=== PATIENT | female | born 1990 | race Caucasian/White ===

== ENCOUNTER 2016-05-24 14:32 | Emergency (ER) | payer SELFPAY ==
[2016-05-24] MEDS ORDERED: ONDANSETRON 4 MG TAB.RAPDIS PO ONE (15:17)
--- NOTE | 2016-05-24 15:17 | ER Document Report ---
ED Medical Screen (RME) - General Stated Complaint: COUGH Notes: 2 days ago congestion, headache, vomiting, bodyaches (-) influenza vaccine I have greeted and performed a rapid initial assessment of this patient. A comprehensive ED assessment and evaluation of the patient, analysis of test results and completion of the medical decision making process will be conducted by additional ED providers. TRAVEL OUTSIDE OF THE [place] IN LAST 30 DAYS: No - Related Data Allergies/Adverse Reactions: No Known Allergies Allergy (Verified 05/24/16 15:16) Past Medical History - Past Medical History Cardiac Medical History: Reports: Hx Hypertension Denies: Hx Coronary Artery Disease Pulmonary Medical History: Reports: Hx Bronchitis, Hx Pneumonia Neurological Medical History: Denies: Hx Migraine Endocrine Medical History: Denies: Hx Diabetes Mellitus Type 2, Hx Hypothyroidism GI Medical History: Denies: Hx Gastritis, Hx Gastroesophageal Reflux Disease, Hx Irritable Bowel Musculoskeltal Medical History: Denies Hx Fibromyalgia, Denies Hx Muscle Spasm, Denies Hx Muscle Weakness, Reports Hx Musculoskeletal Deformity, Reports Hx Musculoskeletal Trauma Psychiatric Medical History: Reports: Hx Anxiety, Hx Depression Infectious Medical History: Denies: Hx HIV, Hx MRSA Past Surgical History: Reports: Hx Cholecystectomy, Hx Tonsillectomy - Immunizations Immunizations up to date: Yes Hx Diphtheria, Pertussis, Tetanus Vaccination: Yes Physical Exam - Vital signs Vitals: Temp Pulse Resp BP Pulse Ox 97.9 F 67 18 147/88 H 98 05/24/16 14:46 05/24/16 14:46 05/24/16 14:46 05/24/16 14:46 05/24/16 14:46 Course - Vital Signs Vital signs: Temp Pulse Resp BP Pulse Ox 97.9 F 67 18 147/88 H 98 05/24/16 14:46 05/24/16 14:46 05/24/16 14:46 05/24/16 14:46 05/24/16 14:46
--- NOTE | 2016-05-24 15:51 | ER Document Report ---
ED General - General Chief Complaint: Flu Symptoms Stated Complaint: COUGH Mode of Arrival: Ambulatory Information source: Patient Notes: Patient is 25 yo female who presents with 2 day history of non-productive cough , sore throat, congestion, headache and body aches. She also endorses vomiting x2 today. She reports exposure to the flu, did not get her flu vaccine. She denies any dizziness, changes in vision, ear pain, chest pain, SOB, wheezing, diarrhea or urinary symptoms. She has tried OTC medication with no relief. TRAVEL OUTSIDE OF THE [place] IN LAST 30 DAYS: No - Related Data Allergies/Adverse Reactions: No Known Allergies Allergy (Verified 05/24/16 15:16) Past Medical History - Social History Smoking Status: Current Every Day Smoker Frequency of alcohol use: Social Drug Abuse: Marijuana Family History: Arthritis, CAD, DM, Hyperlipidemia, Hypertension, Malignancy, Thyroid Disfunction Patient has suicidal ideation: No Patient has homicidal ideation: No - Past Medical History Cardiac Medical History: Reports: Hx Hypertension Denies: Hx Coronary Artery Disease Pulmonary Medical History: Reports: Hx Bronchitis, Hx Pneumonia Neurological Medical History: Denies: Hx Migraine Endocrine Medical History: Denies: Hx Diabetes Mellitus Type 2, Hx Hypothyroidism Renal/ Medical History: Denies: Hx Peritoneal Dialysis GI Medical History: Denies: Hx Gastritis, Hx Gastroesophageal Reflux Disease, Hx Irritable Bowel Musculoskeltal Medical History: Denies Hx Fibromyalgia, Denies Hx Muscle Spasm, Denies Hx Muscle Weakness, Reports Hx Musculoskeletal Deformity, Reports Hx Musculoskeletal Trauma Psychiatric Medical History: Reports: Hx Anxiety, Hx Depression Infectious Medical History: Denies: Hx HIV, Hx MRSA Past Surgical History: Reports: Hx Cholecystectomy, Hx Tonsillectomy - Immunizations Immunizations up to date: Yes Hx Diphtheria, Pertussis, Tetanus Vaccination: Yes Review of Systems - Review of Systems Constitutional: See HPI EENT: See HPI Cardiovascular: No symptoms reported Respiratory: No symptoms reported Gastrointestinal: See HPI Genitourinary: No symptoms reported Female Genitourinary: No symptoms reported Musculoskeletal: No symptoms reported Skin: No symptoms reported Hematologic/Lymphatic: No symptoms reported Neurological/Psychological: No symptoms reported Physical Exam - Vital signs Vitals: Temp Pulse Resp BP Pulse Ox 97.9 F 67 18 147/88 H 98 05/24/16 14:46 05/24/16 14:46 05/24/16 14:46 05/24/16 14:46 05/24/16 14:46 Interpretation: Hypertensive - Notes Notes: PHYSICAL EXAM: CONSTITUTIONAL: Alert and oriented, well-appearing and in no acute distress. Standing in exam room. HENT: Normocephalic, atraumatic. Ear canals without erythema or foreign body, TMs pearly [place] with good bony landmarks. Nares clear without erythema, septal hematoma or deviation, airway patent. Oropharynx clear with tonsillar enlargement without erythema, tonsilar exudate or malocclusion. Trachea midline. Uvula midline. Moist mucous membranes. EYES: Pupils equal round and reactive to light, EOM intact. Sclera anicteric, conjunctiva are normal. No entrapment. NECK: supple without lymphadenopathy. ROM intact. HEART: Regular rate and rhythm without murmurs. LUNGS: CTAB and equal. No wheezes, rales or rhonchi. GI: Normactive bowel sounds. Nontender, non-distended. No organomegaly. no CVAT. EXTREMITIES: Normal range of motion, no pitting edema. No cyanosis. Cap Refill < 3 seconds. SKIN: Warm and dry. Normal turgor. No rashes or lesions noted. Course - Re-evaluation Re-evalutation: 05/24/16 16:45 Patient seen and examined. VSS, well-appearing, non-toxic. Lungs CTAB. Will swab for influenza and rapid strep. 05/24/16 17:56 Reviewed labs - negative for strep or influenza. Discussed results with patient as well as supportive treatments. Discharged home in stable condition, follow- up with PMD. Patient in agreement with assessment and plan. - Vital Signs Vital signs: Temp Pulse Resp BP Pulse Ox 97.7 F 68 16 137/79 H 98 05/24/16 17:13 05/24/16 17:13 05/24/16 17:13 05/24/16 17:13 05/24/16 17:13 Discharge - Discharge Clinical Impression: Viral syndrome Condition: Stable Disposition: HOME, SELF-CARE Additional Instructions: UPPER RESPIRATORY ILLNESS: You have a viral infection of the respiratory passages -- a "cold." This common infection causes nasal congestion, drainage, and often sore throat and cough. It is highly contagious. The disease usually lasts about 10 to 14 days. There is no "cure" for the viral infection -- it must run its course. If there is a complication, such as bacterial infection in the nose, sinuses, middle ear, or bronchial tubes, antibiotics may be required. The antibiotics won't affect the virus. Drink plenty of fluids. A humidifier may help. An expectorant medication or decongestant may make you more comfortable. Use acetaminophen or ibuprofen for fever or aches. See the doctor if fever persists over two days, if there is any significant worsening of your symptoms, or if you simply fail to improve as expected. DECONGESTANT MEDICATION: A decongestant medicine has been prescribed. Often this medicine is combined in the same tablet with an antihistamine or expectorant. This type of medicine is helpful in treating a bad cold or sinus condition, as well as in treatment of the nasal congestion of hay fever. It is not of much benefit for lung infections. Decongestant medicines are related to stimulants. They can cause an increase in blood pressure and heart rate. Persons with heart disease and high blood pressure should not take decongestants without discussing this with the physician. If you develop palpitations, chest pain, headache, or tremors, stop the medicine and consult your physician. COUGH-SUPPRESSANT & EXPECTORANT MEDICATION: You are to use a cough medication as needed for relief of symptoms. This medicine is a combination of an expectorant (to make the mucous thinner and more easily "coughed up") and a cough suppressant (to reduce the frequency of coughing). The cough-suppressant medicine is related to narcotics. You may experience mild nausea and sleepiness. Some patients who are very sensitive to narcotics may have stomach pain from this medicine. Taking the medicine with food reduces these side effects. Do not drive or work with machinery until you know how this medicine affects you. The expectorant should have no side effects. Iodine-containing expectorants (such as organidin) should not be taken by persons with active thyroid disease unless approved by your doctor. Call the doctor if you develop shortness of breath, hives, rash, itching, lightheadedness, or severe nausea and vomiting. USE OF ACETAMINOPHEN (Tylenol): Acetaminophen may be taken for pain relief or fever control. It's much safer than aspirin, offering a wider range of "safe" dosages. It is safe during . Some brand names are Tylenol, Panadol, Datril, Anacin 3, Tempra, and Liquiprin. Acetaminophen can be repeated every four hours. The following are maximum recommended dosages: >89 pounds or adults 650 mg to 900 mg Acetaminophen can be repeated every four hours. Maximum dose not to exceed 4000 mg a day. SMOKING: If you smoke, you should stop smoking. The tar and chemicals in cigarette smoke are harmful. Smoking has been shown to cause: emphysema chronic bronchitis lung cancer mouth and throat cancer stomach and pancreas cancer premature aging defects In addition, smoking increases ear and lung infections in children of smokers. FOLLOW-UP CARE: If you have been referred to a physician for follow-up care, call the physician s office for an appointment as you were instructed or within the next two days. If you experience worsening or a significant change in your symptoms, notify the physician immediately or return to the Emergency Department at any time for re-evaluation. Prescriptions: Phenol/Sodium Phenolate [Chloraseptic Sore Throat [place] 177 ml] 2 sprays MM Q2HP PRN #1 bottle PRN Reason: Pseudoephedrine HCl [Sudafed] 30 mg PO Q6HP PRN #8 tablet PRN Reason: Guaifenesin/D-Methorphan Hb [Guaifenesin-Dextromethorph Tab] 1 each PO Q12HP PRN #8 tab.sr.12h PRN Reason: Cough Forms: Return to Work
[2016-05-24 17:14] VITALS: BP 137/79
== END 2016-05-24 17:14 | disposition home or self-care (01) ==
LOC: ER 14:32
DX: B34.9 Viral infection, unspecified (principal); R05 Cough; J02.9 Acute pharyngitis, unspecified; J35.1 Hypertrophy of tonsils; R51 Headache; R11.10 Vomiting, unspecified; F17.200 Nicotine dependence, unspecified, uncomplicated; I10 Essential (primary) hypertension; Z87.01 Personal history of pneumonia (recurrent)
CPT/HCPCS: 99283; 87070; 87880; 87077; 87804; S0119

== ENCOUNTER 2016-06-28 15:34 | Emergency (ER) | payer SELFPAY ==
--- NOTE | 2016-06-28 16:25 | ER Document Report ---
ED Medical Screen (RME) - General Stated Complaint: BODY PAINS Notes: States she has been sick for the last 2 weeks. Fevers have been on and off. Did have vomiting but that's resolved in the last couple of days. Also complains of headache and body aches. Patient states she has had some difficulty breathing, and has been using the inhaler that she had at home. Patient states history of bronchitis and pneumonia. Patient states last fever was 4 days ago. I have greeted and performed a rapid initial assessment of this patient. A comprehensive ED assessment and evaluation of the patient, analysis of test results and completion of the medical decision making process will be conducted by additional ED providers. TRAVEL OUTSIDE OF THE [place] IN LAST 30 DAYS: No - Related Data Allergies/Adverse Reactions: No Known Allergies Allergy (Verified 06/28/16 16:24) Past Medical History - Past Medical History Cardiac Medical History: Reports: Hx Hypertension Denies: Hx Coronary Artery Disease Pulmonary Medical History: Reports: Hx Bronchitis, Hx Pneumonia Neurological Medical History: Denies: Hx Migraine Endocrine Medical History: Denies: Hx Diabetes Mellitus Type 2, Hx Hypothyroidism Renal/ Medical History: Denies: Hx Peritoneal Dialysis GI Medical History: Denies: Hx Gastritis, Hx Gastroesophageal Reflux Disease, Hx Irritable Bowel Musculoskeltal Medical History: Denies Hx Fibromyalgia, Denies Hx Muscle Spasm, Denies Hx Muscle Weakness, Reports Hx Musculoskeletal Deformity, Reports Hx Musculoskeletal Trauma Psychiatric Medical History: Reports: Hx Anxiety, Hx Depression Infectious Medical History: Denies: Hx HIV, Hx MRSA Past Surgical History: Reports: Hx Cholecystectomy, Hx Tonsillectomy - Immunizations Immunizations up to date: Yes Hx Diphtheria, Pertussis, Tetanus Vaccination: Yes Physical Exam - Vital signs Vitals: Temp Pulse Resp BP Pulse Ox 98.4 F 77 18 140/91 H 100 06/28/16 16:08 06/28/16 16:08 06/28/16 16:08 06/28/16 16:08 06/28/16 16:08 - Respiratory Respiratory status: No respiratory distress Breath sounds: Normal - barky cough noted Course - Vital Signs Vital signs: Temp Pulse Resp BP Pulse Ox 98.4 F 77 18 140/91 H 100 06/28/16 16:08 06/28/16 16:08 06/28/16 16:08 06/28/16 16:08 06/28/16 16:08
[2016-06-28] MEDS ORDERED: PREDNISONE 20 MG TABLET PO ONE (17:41)
[2016-06-28] MEDS ORDERED: IPRATROPIUM/ALBUTEROL 0.5-2.5 MG/3 ML AMPUL NEB ONE (17:41)
[2016-06-28] MEDS ORDERED: ALBUTEROL SULFATE HFA (90 MCG/PUFF) 8 GM MDI (1 MDI/ER DISP) IH ONE (17:44)
[2016-06-28 18:37] VITALS: BP 143/71
--- NOTE | 2016-06-28 19:26 | ER Document Report ---
ED General - General Chief Complaint: Flu Symptoms Stated Complaint: BODY PAINS TRAVEL OUTSIDE OF THE [place] IN LAST 30 DAYS: No - HPI Patient complains to provider of: cough difficulty breathing fevers chills Notes: Patient coming in for evaluation today of 2 weeks of intermittent fevers chills cough shortness of breath sore throat losing her voice. Patient states she did not receive a flu shot this year patient is a smoker stay pack-a-day. Patient states no recent antibiotics no nausea no vomiting - Related Data Allergies/Adverse Reactions: No Known Allergies Allergy (Verified 06/28/16 16:24) Past Medical History - Social History Smoking Status: Current Every Day Smoker Chew tobacco use (# tins/day): No Frequency of alcohol use: Occasional Drug Abuse: Marijuana Family History: Arthritis, CAD, DM, Hyperlipidemia, Hypertension, Malignancy, Thyroid Disfunction Patient has suicidal ideation: No Patient has homicidal ideation: No - Past Medical History Cardiac Medical History: Reports: Hx Hypertension Denies: Hx Coronary Artery Disease Pulmonary Medical History: Reports: Hx Bronchitis, Hx Pneumonia Neurological Medical History: Denies: Hx Migraine Endocrine Medical History: Denies: Hx Diabetes Mellitus Type 2, Hx Hypothyroidism Renal/ Medical History: Denies: Hx Peritoneal Dialysis GI Medical History: Denies: Hx Gastritis, Hx Gastroesophageal Reflux Disease, Hx Irritable Bowel Musculoskeltal Medical History: Denies Hx Fibromyalgia, Denies Hx Muscle Spasm, Denies Hx Muscle Weakness, Reports Hx Musculoskeletal Deformity, Reports Hx Musculoskeletal Trauma Psychiatric Medical History: Reports: Hx Anxiety, Hx Depression Infectious Medical History: Denies: Hx HIV, Hx MRSA Past Surgical History: Reports: Hx Cholecystectomy, Hx Tonsillectomy - Immunizations Immunizations up to date: Yes Hx Diphtheria, Pertussis, Tetanus Vaccination: Yes Review of Systems - Review of Systems Constitutional: Fever - Subjective, Other - Feeling unwell EENT: No symptoms reported Cardiovascular: No symptoms reported Respiratory: Short of breath Gastrointestinal: No symptoms reported Genitourinary: No symptoms reported Female Genitourinary: No symptoms reported Musculoskeletal: No symptoms reported Skin: No symptoms reported Hematologic/Lymphatic: No symptoms reported Neurological/Psychological: No symptoms reported -: Yes All other systems reviewed and negative Physical Exam - Vital signs Vitals: Temp Pulse Resp BP Pulse Ox 98.4 F 77 18 140/91 H 100 06/28/16 16:08 06/28/16 16:08 06/28/16 16:08 06/28/16 16:08 06/28/16 16:08 Interpretation: Normal - General General appearance: Appears well, Alert - HEENT Head: Normocephalic, Atraumatic Eyes: Normal Pupils: PERRL - Respiratory Respiratory status: No respiratory distress Chest status: Nontender Breath sounds: Normal Chest palpation: Normal - Cardiovascular Rhythm: Regular Heart sounds: Normal auscultation Murmur: No - Abdominal Inspection: Normal Distension: No distension Bowel sounds: Normal Tenderness: Nontender Organomegaly: No organomegaly - Back Back: Normal, Nontender - Extremities General upper extremity: Normal inspection, Nontender, Normal color, Normal ROM , Normal temperature General lower extremity: Normal inspection, Nontender, Normal color, Normal ROM , Normal temperature, Normal weight bearing. No: Sandro's sign - Neurological Neuro grossly intact: Yes Cognition: Normal Orientation: AAOx4 [place] Coma Scale Eye Opening: Spontaneous Angel Coma Scale Verbal: Oriented [place] Coma Scale Motor: Obeys Commands Angel Coma Scale Total: 15 Speech: Normal Motor strength normal: LUE, RUE, LLE, RLE Sensory: Normal - Psychological Associated symptoms: Normal affect, Normal mood - Skin Skin Temperature: Warm Skin Moisture: Dry Skin Color: Normal Course - Re-evaluation Re-evalutation: 06/28/16 19:37 Patient symptoms are consistent with more likely bronchitis. We'll treat with steroids and bronchodilators a Z-Ren. Patient encouraged to stop smoking will be discharged home. - Vital Signs Vital signs: Temp Pulse Resp BP Pulse Ox 98.4 F 77 18 140/91 H 100 06/28/16 16:08 06/28/16 16:08 06/28/16 16:08 06/28/16 16:08 06/28/16 16:08 Discharge - Discharge Clinical Impression: Bronchitis Condition: Good Disposition: HOME, SELF-CARE Instructions: Bronchitis With Bronchospasm (Wheezing) ([facility]) Additional Instructions: Please take medication as prescribed. Return to the ER symptoms worsen. Prescriptions: Albuterol Sulfate [Proair Hfa Inhalation Aerosol 8.5 gm Mdi] 1 puff IH Q4 PRN # 1 mdi PRN Reason: Azithromycin [Zithromax 250 mg Tablet] 250 mg PO ASDIR PRN #6 tablet PRN Reason: Prednisone [Deltasone 20 mg Tablet] 2 tab PO DAILY 3 Days Forms: Return to Work, Smoking Cessation Education
== END 2016-06-28 18:30 | disposition home or self-care (01) ==
LOC: ER 15:34
DX: J40 Bronchitis, not specified as acute or chronic (principal); R05 Cough; R06.02 Shortness of breath; R49.0 Dysphonia; F17.200 Nicotine dependence, unspecified, uncomplicated; R68.83 Chills (without fever); I10 Essential (primary) hypertension; Z87.01 Personal history of pneumonia (recurrent)
CPT/HCPCS: 94640; 99283; 71020; J7512; J3490; J7620

== ENCOUNTER 2016-07-18 16:36 | Emergency (ER) | payer SELFPAY ==
[2016-07-18] MEDS ORDERED: LORATADINE 10 MG TABLET PO ONE (18:12)
[2016-07-18] MEDS ORDERED: ACETAMINOPHEN 325 MG TABLET PO ONE (18:12)
[2016-07-18] MEDS ORDERED: IPRATROPIUM/ALBUTEROL 0.5-2.5 MG/3 ML AMPUL NEB ONE (18:12)
[2016-07-18] MEDS ORDERED: PROCHLORPERAZINE EDISYLATE INJ 10 MG/2 ML VIAL IM ONE (18:12)
[2016-07-18] MEDS ORDERED: KETOROLAC TROMETHAMINE 60 MG/2 ML SDV IM ONE (19:20)
--- NOTE | 2016-07-18 19:21 | ER Document Report ---
HPI - HPI Patient complains to provider of: cough Pain Level: 5 Context: Patient is a 25-year-old female presents emergency presents with cough and headache. Patient states she's had a cough for about 4 weeks. She was treated here for bronchitis with a Z-Ren, prednisone, inhaler. She states that these all helped with her symptoms that her cough came back a couple of days after. She denies any productive purulent, yellow sputum. She admits to clear mucus. She admits that she has not been smoking marijuana since her last visit here since she was told to quit. she admits she was smoking for blunts a day as well as cigarettes. She also states she has a history of seasonal allergies and she's been on and off and has not been consistent with taking allergy medication. Otherwise she states that she's moving to [place] so she will not be able to follow up with a primary care physician here. Patient states that she is looking to buy a nebulizer machine because she feels that this breathing treatments were provided and the inhaler. Patient is requesting albuterol nebulizers today. - REPRODUCTIVE Reproductive: DENIES: : - DERM Skin Color: Normal Past Medical History - Social History Smoking Status: Former Smoker Chew tobacco use (# tins/day): No Frequency of alcohol use: Occasional Drug Abuse: Marijuana Family History: Arthritis, CAD, DM, Hyperlipidemia, Hypertension, Malignancy, Thyroid Disfunction Patient has suicidal ideation: No Patient has homicidal ideation: No - Past Medical History Cardiac Medical History: Reports: Hx Hypertension Denies: Hx Coronary Artery Disease Pulmonary Medical History: Reports: Hx Bronchitis, Hx Pneumonia Neurological Medical History: Denies: Hx Migraine Endocrine Medical History: Reports: Hx Diabetes Mellitus Type 2. Denies: Hx Hypothyroidism Renal/ Medical History: Denies: Hx Peritoneal Dialysis GI Medical History: Denies: Hx Gastritis, Hx Gastroesophageal Reflux Disease, Hx Irritable Bowel Musculoskeltal Medical History: Denies Hx Fibromyalgia, Denies Hx Muscle Spasm, Denies Hx Muscle Weakness, Reports Hx Musculoskeletal Deformity, Reports Hx Musculoskeletal Trauma Psychiatric Medical History: Reports: Hx Anxiety, Hx Depression Infectious Medical History: Denies: Hx HIV, Hx MRSA Past Surgical History: Reports: Hx Cholecystectomy, Hx Tonsillectomy - Immunizations Immunizations up to date: Yes Hx Diphtheria, Pertussis, Tetanus Vaccination: Yes Vertical Provider Document - CONSTITUTIONAL Notes: PHYSICAL EXAM GENERAL: Alert, interacts well. HEAD: Normocephalic, atraumatic. EYES: Pupils equal, round, and reactive to light. Extraocular movements intact. ENT: Oral mucosa moist, tongue midline. NECK: Full range of motion. Supple. Trachea midline. LUNGS: Poor air movement, no wheezes, rales, or rhonchi. No respiratory distress. HEART: Regular rate and rhythm. No murmurs, gallops, or rubs. ABDOMEN: Soft, nondistended, nontender. No guarding, rebound, or rigidity.. Bowel sounds present in all 4 quadrants. EXTREMITIES: Moves all 4 extremities spontaneously. No edema, radial and dorsalis pedis pulses 2/4 bilaterally. No cyanosis. NEUROLOGICAL: Alert and oriented x4. Normal speech. PSYCH: Normal affect, normal mood. SKIN: Warm, dry, normal turgor. No rashes or lesions noted. - INFECTION CONTROL TRAVEL OUTSIDE OF THE [place] IN LAST 30 DAYS: No - RESPIRATORY O2 Sat by Pulse Oximetry: 98 Course - Re-evaluation Re-evalutation: 07/18/16 20:53 Patient is a 25-year-old female presents with cough. Chest x-ray does not reveal any concern for pneumonia. Patient's hemoglobin is stable, no acute distress and afebrile. Tolerated DuoNeb breathing treatment well and feels that her breathing is much better. She states that her headache did not really respond to the Tylenol which she been taking at home. She was then given 1 dose of Toradol which she states relieves her symptoms completely. Otherwise she is stable for discharge home. - Vital Signs Vital signs: Temp Pulse Resp BP Pulse Ox 98 F 67 21 H 136/73 H 98 07/18/16 17:14 07/18/16 17:14 07/18/16 17:14 07/18/16 17:14 07/18/16 17:14 - Diagnostic Test Radiology reviewed: Image reviewed, Reports reviewed Discharge - Discharge Clinical Impression: Cough Condition: Good Disposition: HOME, SELF-CARE Instructions: Upper Respiratory Illness ([facility]) Additional Instructions: The counter medications to buy include loratadine, Mucinex, Excedrin Migraine, Benadryl HEADACHE: The physician does not feel that the headache you are experiencing has a serious underlying cause. Most headaches are due to emotional stress, with resultant muscle tension (tension headache). Occasionally, headaches are secondary to changes in the blood vessels of the scalp (vascular headache and migraine headache). Sometimes, a headache is the first symptom of another developing illness, such as a viral infection. You have no evidence of stroke, bleeding, meningitis, or other serious cause of your headache. The treatment of headaches varies with the severity and cause of the pain. Not all headaches need pain shots. In fact, there is evidence that using narcotics for headaches may make them worse in the long run. The physician will determine the therapy that's in your best interest. If you develop a fever, if the headache is different from any you've previously experienced, or if the headache progressively worsens, then call your physician at once or go to the emergency room. ANTINAUSEA MEDICATION: You have been given a medication to suppress nausea and vomiting. This type of medication can be given as a shot, pill, or suppository. It will usually last for many hours. Pills and shots usually last six to eight hours, suppositories last about 12 hours. For the typical illness, only one or two doses of the medication may be necessary. Mild lightheadedness may occur. This type of medicine can cause drowsiness. Do not drive or operate dangerous machinery while under its influence. Do not mix with alcohol. See your doctor at once if you have muscle spasms or tightness, or uncontrollable motions (particularly of the neck, mouth, or jaw). Persistent vomiting or severe lightheadedness should also be evaluated by the physician. INTRAVENOUS COMPAZINE FOR HEADACHE: You have received therapy for headaches, using intravenous Compazine. This treatment is dramatically successful in relieving the headache in about 50 percent of cases. When it works, it provides a rapid method of eliminating the headache without resorting to narcotics (and the problems associated with them). Most patients still feel fully alert after the Compazine, but others may be slightly drowsy. It's best not to drive or work with machinery for six to eight hours. Do not take alcohol or other medication unless you discuss it with the doctor. If you develop tightness and spasms in your muscles, especially the neck and tongue, you should return. This is a side effect which can be treated. FOLLOW-UP CARE: If you have been referred to a physician for follow-up care, call the physician s office for an appointment as you were instructed or within the next two days. If you experience worsening or a significant change in your symptoms, notify the physician immediately or return to the Emergency Department at any time for re-evaluation. Prescriptions: Albuterol Sulfate [Albuterol Sulfate 2.5mg/3 mL] 2.5 mg IH Q4HP PRN 7 Days PRN Reason: Forms: Elevated Blood Pressure, Return to Work Referrals: HARRIETT BOSE MD [ACTIVE STAFF] - Follow up as needed
[2016-07-18 19:49] VITALS: BP 130/72
== END 2016-07-18 19:49 | disposition home or self-care (01) ==
LOC: ER 16:36
DX: R05 Cough (principal); R51 Headache; J30.2 Other seasonal allergic rhinitis; I10 Essential (primary) hypertension; E11.9 Type 2 diabetes mellitus without complications; Z87.891 Personal history of nicotine dependence; Z87.01 Personal history of pneumonia (recurrent)
CPT/HCPCS: 94640; 99283; 96372; 71020; J1885; J0780; J7620

== ENCOUNTER 2017-10-30 20:19 | Emergency (ER) | payer SELFPAY ==
[2017-10-30 20:24] VITALS: BP 143/81
--- NOTE | 2017-10-30 20:48 | ER Document Report ---
ED Extremity Problem, Lower - General Chief Complaint: Knee Pain Stated Complaint: KNEE PAIN Time Seen by Provider: 10/30/17 20:32 Mode of Arrival: Ambulatory Information source: Patient Notes: 26-year-old female presents to ED for complaint of pain to the left knee. She states she fell down some steps and is hurting all over but the worst pain is in her left knee. States the knee has been hurting before now and it is worse after she fell. TRAVEL OUTSIDE OF THE [place] IN LAST 30 DAYS: No - HPI Patient complains to provider of: Injury, Pain Location: Knee - Left Occurred: This afternoon Where: Outdoors, Public place Onset/Duration: Persistent Quality of pain: Sharp Severity: Severe Pain Level: 5 Context: Fell Recent injury: Yes Associated symptoms: Painful ambulation Exacerbated by: Hanging down, Movement, Walking Relieved by: Elevation, Ice, Rest - Related Data Allergies/Adverse Reactions: chocolate flavor Adverse Reaction (Verified 07/18/16 18:34) peanut Adverse Reaction (Verified 07/18/16 18:34) Past Medical History - General Information source: Patient - Social History Smoking Status: Current Every Day Smoker Cigarette use (# per day): Yes - 1 cigarette a day Chew tobacco use (# tins/day): No Smoking Education Provided: Yes - 4 minutes Frequency of alcohol use: Social Drug Abuse: Marijuana Lives with: Spouse/Significant other Family History: Arthritis, CAD, DM, Hyperlipidemia, Hypertension, Malignancy, Thyroid Disfunction Patient has suicidal ideation: No Patient has homicidal ideation: No - Past Medical History Cardiac Medical History: Reports: Hx Hypertension Pulmonary Medical History: Reports: Hx Bronchitis, Hx Pneumonia EENT Medical History: Reports: None Neurological Medical History: Reports: None Endocrine Medical History: Reports: Hx Diabetes Mellitus Type 2 Renal/ Medical History: Reports: Hx Ovarian Cysts - pcos Malignancy Medical History: Reports: None GI Medical History: Reports: None Musculoskeletal Medical History: Reports Hx Musculoskeletal Deformity, Reports Hx Musculoskeletal Trauma Psychiatric Medical History: Reports: Hx Anxiety, Hx Depression Infectious Medical History: Denies: Hx HIV, Hx MRSA Past Surgical History: Reports: Hx Cholecystectomy, Hx Tonsillectomy - Immunizations Immunizations up to date: Yes Hx Diphtheria, Pertussis, Tetanus Vaccination: Yes Review of Systems - Review of Systems Constitutional: No symptoms reported EENT: No symptoms reported Cardiovascular: No symptoms reported Respiratory: No symptoms reported Gastrointestinal: No symptoms reported Genitourinary: No symptoms reported Female Genitourinary: No symptoms reported Musculoskeletal: Joint pain, Muscle pain, Muscle stiffness. denies: Joint swelling - Left knee Skin: No symptoms reported Hematologic/Lymphatic: No symptoms reported Neurological/Psychological: No symptoms reported Physical Exam - Vital signs Vitals: Temp Pulse Resp BP Pulse Ox 98.4 F 94 16 143/81 H 93 10/30/17 20:22 10/30/17 20:22 10/30/17 20:22 10/30/17 20:22 10/30/17 20:22 Interpretation: Normal - General General appearance: Appears well, Alert - HEENT Head: Normocephalic, Atraumatic Eyes: Normal Pupils: PERRL - Respiratory Respiratory status: No respiratory distress Chest status: Nontender Breath sounds: Normal Chest palpation: Normal - Cardiovascular Rhythm: Regular Heart sounds: Normal auscultation Murmur: No - Abdominal Inspection: Normal Distension: No distension Bowel sounds: Normal Tenderness: Nontender Organomegaly: No organomegaly - Back Back: Normal, Nontender - Extremities General upper extremity: Normal inspection, Nontender, Normal color, Normal ROM , Normal temperature General lower extremity: Normal color, Normal temperature, Normal weight bearing. No: Sandro's sign Knee: Tender, Pain with ROM, Tender joint line. No: Abrasion, Deformity, Dislocation, Drawer's test instability, Ecchymosis, Instability, Joint effusion , Laceration, Laxity with valgus stress, Laxity with varus stress, Patellar tendon intact, Popliteal fossa tender, Unable to bear weight - Neurological Neuro grossly intact: Yes Cognition: Normal Orientation: AAOx4 [place] Coma Scale Eye Opening: Spontaneous [place] Coma Scale Verbal: Oriented Angel Coma Scale Motor: Obeys Commands Angel Coma Scale Total: 15 Speech: Normal Motor strength normal: LUE, RUE, LLE, RLE Sensory: Normal - Psychological Associated symptoms: Normal affect, Normal mood - Skin Skin Temperature: Warm Skin Moisture: Dry Skin Color: Normal Course - Re-evaluation Re-evalutation: 10/30/17 22:00 X-ray with patient. Patient was treated with one [place] in the emergency room and instructed on use of ice elevation ibuprofen for her pain. Patient to follow-up with orthopedics. - Vital Signs Vital signs: Temp Pulse Resp BP Pulse Ox 98.4 F 94 16 143/81 H 93 10/30/17 20:22 10/30/17 20:22 10/30/17 20:22 10/30/17 20:22 10/30/17 20:22 - Diagnostic Test Radiology reviewed: Image reviewed, Reports reviewed Procedures - Immobilization Left Knee Time completed: 22:00 Immobilizer type: Duc wrap Performed by: EGUENIE Post-Proc Neuro Vasc Exam: Normal Discharge - Discharge Clinical Impression: Left knee pain Qualifiers: Chronicity: acute Qualified Code(s): M25.562 - Pain in left knee Fall Qualifiers: Encounter type: initial encounter Qualified Code(s): W19.XXXA - Unspecified fall, initial encounter Condition: Stable Disposition: HOME, SELF-CARE Additional Instructions: You were seen today for knee pain after you fell landing on your knee. Your x- ray shows no acute injuries at this time. Knee Exercise Program It's important to strengthen the muscles around the knee. This protects the injured area and stabilizes a knee that's been loosened by ligament injury. EARLY - Even when motion of the knee is painful (even when wearing a splint ), you can begin isometric "quads" exercises. While sitting, hold the knee out, and contract the muscles to stiffen it. It shouldn't be straightened all the way -- stiffen it in a slightly-bent position. Lift the leg and draw a "T" with your foot, up to 100 times. When it becomes easy, add a weight on your foot. LATE - When the doctor advises you, you can begin moving the knee against resistance. The front muscles (quadriceps) are most important. While sitting at a [employer], straighten the knee forcefully while pushing a weight up with your ankle. Start with five to 10 pounds. Do 10 to 20 repetitions, increasing the weight as tolerated. Don't use more weight than is comfortable! Over a few weeks, work up to 35 to 50 pounds. Athletes should try to reach 70 to 90 pounds. DUC WRAP: A compression dressing (duc wrap) has been placed. This helps hold the area still. It limits swelling and internal bleeding. The wrap should be comfortably snug -- not tight. You should feel a sense of pressure, but not severe pain under the wrap. Unless the physician tells you otherwise, you can adjust the wrap for comfort. If the wrap causes symptoms suggesting it's too tight -- uncomfortable pressure, swelling or discoloration beyond the wrap, numbness, or severe pain - - you must loosen the wrap. If these symptoms don't resolve promptly, return for re-evaluation. ICE & ELEVATION: Apply ice packs frequently against the painful area. Many different schedules are recommended, such as "20 minutes on, 20 minutes off" or "one hour ice, two hours rest." If you need to work, you may need to go longer between ice treatments. You should plan to have the area ice packed AT LEAST one- fourth of the time. The ice should be applied over the wrap, tape, or splint, or over a layer of cloth -- not directly against the skin. Some ice bags have a built-in cloth and can be put directly on the skin. Your injured part should be elevated as much as possible over the next 48 hours. Try to keep the injury above the level of the heart. Avoid use of the injured area. Elevation and rest will decrease the swelling. USE OF [id number] IBUPROFEN: Ibuprofen (Advil, Nuprin, Medipren, Motrin IB) is a medication for fever and pain control. In addition, it has anti- inflammatory effects which may be beneficial, especially in the treatment of injuries. It's best to take ibuprofen with food. Persons with ulcer disease or allergy to aspirin should notify their physician of this before taking ibuprofen. Ibuprofen can be given every four to six hours, for a total of four doses daily. Age Pain or fever dose Antiinflammatory dose 6-8 yr 200 mg (1 tab) 200 mg (1 tab) 9-11 yr 200 mg (1 tab) 200-400 mg (1-2 tab) 11-14 yr 200-400 mg (1-2 tab) 400 mg (2 tab) 15-adult 400 mg (2 tab) 600 mg (3 tab) ORAL NARCOTIC MEDICATION: You have been given a norco for pain control. This medication is a narcotic. It's best taken with food, as nausea can result if taken on an empty stomach. Don't operate machinery or drive within six hours of taking this medication. Do not combine this medicine with alcohol, or with any medication which can cause sedation (such as cold tablets or sleeping pills) unless you get permission from the physician. Narcotics tend to cause constipation. If possible, drink plenty of fluids and eat a diet high in fiber and fruits. Please be aware that prescription narcotics also have the potential for abuse. People become addicted to these medications because of the general sense of wellbeing that they induce. This feeling along with a significant reduction in tension, anxiety, and aggression provides a stimulating seductive quality to these drugs. Once your pain is under control, we encourage you to discard your unused narcotics. FOLLOW-UP CARE: If you have been referred to a physician for follow-up care, call the physician s office for an appointment as you were instructed or within the next two days. If you experience worsening or a significant change in your symptoms, notify the physician immediately or return to the Emergency Department at any time for re-evaluation. Forms: Elevated Blood Pressure, Smoking Cessation Education, Return to Work Referrals: [facility] [Provider Group] - Follow up as needed
--- NOTE | 2017-10-30 21:16 | RADIOLOGY REPORT (SQ) ---
EXAM DESCRIPTION: KNEE LEFT 4 VIEW COMPLETED DATE/TIME: 10/30/2017 8:57 pm REASON FOR STUDY: fall pain in left knee COMPARISON: None. NUMBER OF VIEWS: Four views. TECHNIQUE: AP, lateral, and both oblique radiographic images acquired of the left knee. LIMITATIONS: None. FINDINGS: MINERALIZATION: Normal. BONES: No acute fracture or dislocation. No worrisome bone lesions. JOINT: No effusion. SOFT TISSUES: No soft tissue swelling. No radio-opaque foreign body. OTHER: No other significant finding. IMPRESSION: NO RADIOGRAPHIC EVIDENCE OF ACUTE INJURY. TECHNICAL DOCUMENTATION: JOB ID: [id number] [id number] [employer]- All Rights Reserved Reading location - IP/workstation name: [email or web address]
[2017-10-30] MEDS ORDERED: HYDROCODONE/ACETAMINOPHEN 5-325 MG TABLET PO ONE (21:49)
== END 2017-10-30 22:12 | disposition home or self-care (01) ==
LOC: ER 20:19
DX: M25.562 Pain in left knee (principal); W10.9XXA Fall (on) (from) unspecified stairs and steps, initial encounter; E11.9 Type 2 diabetes mellitus without complications; I10 Essential (primary) hypertension; F17.210 Nicotine dependence, cigarettes, uncomplicated; Z71.6 Tobacco abuse counseling
CPT/HCPCS: 99283; 99406

== ENCOUNTER 2017-12-04 14:12 | Emergency (ER) | payer SELFPAY ==
[2017-12-04] MEDS ORDERED: PROMETHAZINE HCL 25 MG TABLET PO ONE (14:57)
[2017-12-04 15:33] LABS: ABSOLUTE BASOPHILS # (AUTO) 0.1 10^3/uL (0.0-0.2); ABSOLUTE EOSINOPHILS # (AUTO) 0.1 10^3/uL (0.0-0.6); ABSOLUTE LYMPHOCYTES (AUTO) 2.5 10^3/uL (0.5-4.7); ABSOLUTE MONOCYTES (AUTO) 0.6 10^3/uL (0.1-1.4); ABSOLUTE NEUT (AUTO) 4.4 10^3/uL (1.7-8.2); BASOPHILS % (AUTO) 0.7 % (0-2); EOSINOPHILS % (AUTO) 1.2 % (0-6); HEMATOCRIT 37.1 % (36.0-47.0); HEMOGLOBIN 12.5 g/dL (12.0-15.5); LYMPHOCYTES % (AUTO) 32.4 % (13-45); MEAN CORPUSCULAR HEMOGLOBIN 26.6 pg (27.0-33.4); MEAN CORPUSCULAR HGB CONC 33.7 g/dL (32.0-36.0); MEAN CORPUSCULAR VOLUME 79 fl (80-97); MONOCYTES % (AUTO) 7.7 % (3-13); PLATELET COUNT 285 10^3/uL (150-450); RED BLOOD COUNT 4.69 10^6/uL (3.72-5.28); RED CELL DISTRIBUTION WIDTH 14.5 % (11.5-14.0); TOTAL CELLS COUNTED % (AUTO) 100 %; WHITE BLOOD COUNT 7.7 10^3/uL (4.0-10.5)
[2017-12-04 15:57] LABS: ALANINE AMINOTRANSFERASE 152 U/L (9-52); ALBUMIN 3.6 g/dL (3.5-5.0); ALKALINE PHOSPHATASE 103 U/L (38-126); ANION GAP 10 (5-19); ASPARTATE AMINO TRANSFERASE 170 U/L (14-36); BILIRUBIN,DIRECT 0.2 mg/dL (0.0-0.4); BILIRUBIN,TOTAL 0.8 mg/dL (0.2-1.3); BLOOD UREA NITROGEN 12 mg/dL (7-20); CALCIUM 8.9 mg/dL (8.4-10.2); CARBON DIOXIDE 23 mmol/L (22-30); CHLORIDE 110 mmol/L (98-107); GLUCOSE 84 mg/dL (75-110); POTASSIUM 3.9 mmol/L (3.6-5.0); SODIUM 142.7 mmol/L (137-145); TOTAL PROTEIN 7.1 g/dL (6.3-8.2)
--- NOTE | 2017-12-04 15:57 | RADIOLOGY REPORT (SQ) ---
EXAM DESCRIPTION: CHEST 2 VIEWS COMPLETED DATE/TIME: 12/04/2017 3:40 pm REASON FOR STUDY: sob COMPARISON: July 2016 EXAM PARAMETERS: NUMBER OF VIEWS: two views TECHNIQUE: Digital Frontal and Lateral radiographic views of the chest acquired. RADIATION DOSE: NA LIMITATIONS: none FINDINGS: LUNGS AND PLEURA: No opacities, masses or pneumothorax. No pleural effusion. MEDIASTINUM AND HILAR STRUCTURES: No masses or contour abnormalities. HEART AND VASCULAR STRUCTURES: Heart normal size. No evidence for failure. BONES: No acute findings. HARDWARE: None in the chest. OTHER: No other significant finding. IMPRESSION: NO ACUTE RADIOGRAPHIC FINDING IN THE CHEST. TECHNICAL DOCUMENTATION: JOB ID: [id number] [employer]- All Rights Reserved Reading location - IP/workstation name: [email or web address]
[2017-12-04] MEDS ORDERED: HYDROXYZINE PAMOATE 50 MG CAPSULE PO ONE (16:40)
--- NOTE | 2017-12-04 16:41 | ER Document Report ---
ED General - General Chief Complaint: Chest Tightness Stated Complaint: POSSIBLE PANIC ATTACK Time Seen by Provider: 12/04/17 14:57 TRAVEL OUTSIDE OF THE [place] IN LAST 30 DAYS: No - HPI Patient complains to provider of: Chest wall pain anxiety Notes: Prescription for chest wall pain anxiety ongoing for greater than 24 hours. Patient states increased stress. Patient also states having some slight nausea. Patient states pain no chest hurts when taking deep breaths and also with moving around. Patient states history of anxiety however has yet to follow -up with her psychiatric provider has an appointment scheduled later on in the month. States that she was given Ativan by her mother seemed to help out with her symptoms. Patient denies any fevers chills diarrhea. Denies any trauma. Resting comfortably, evaluation unaware of her status - Related Data Allergies/Adverse Reactions: chocolate flavor Adverse Reaction (Verified 12/04/17 14:13) peanut Adverse Reaction (Verified 12/04/17 14:13) Past Medical History - Social History Smoking Status: Never Smoker Chew tobacco use (# tins/day): No Frequency of alcohol use: None Drug Abuse: Bath salts Family History: Arthritis, CAD, DM, Hyperlipidemia, Hypertension, Malignancy, Thyroid Disfunction Patient has suicidal ideation: No Patient has homicidal ideation: No - Past Medical History Cardiac Medical History: Reports: Hx Hypertension Denies: Hx Coronary Artery Disease Pulmonary Medical History: Reports: Hx Bronchitis, Hx Pneumonia Neurological Medical History: Denies: Hx Migraine Endocrine Medical History: Reports: Hx Diabetes Mellitus Type 2. Denies: Hx Hypothyroidism Renal/ Medical History: Reports: Hx Ovarian Cysts - pcos. Denies: Hx Peritoneal Dialysis GI Medical History: Denies: Hx Gastritis, Hx Gastroesophageal Reflux Disease, Hx Irritable Bowel Musculoskeletal Medical History: Denies Hx Fibromyalgia, Denies Hx Muscle Spasm , Denies Hx Muscle Weakness, Reports Hx Musculoskeletal Deformity, Reports Hx Musculoskeletal Trauma Psychiatric Medical History: Reports: Hx Anxiety, Hx Depression Infectious Medical History: Denies: Hx HIV, Hx MRSA Past Surgical History: Reports: Hx Cholecystectomy, Hx Tonsillectomy - Immunizations Immunizations up to date: Yes Hx Diphtheria, Pertussis, Tetanus Vaccination: Yes Review of Systems - Review of Systems Constitutional: No symptoms reported EENT: No symptoms reported Cardiovascular: Chest pain Respiratory: No symptoms reported Gastrointestinal: Nausea Genitourinary: No symptoms reported Female Genitourinary: No symptoms reported Musculoskeletal: No symptoms reported Skin: No symptoms reported Hematologic/Lymphatic: No symptoms reported Neurological/Psychological: Anxiety -: Yes All other systems reviewed and negative Physical Exam - Vital signs Interpretation: Normal - General General appearance: Appears well, Alert - HEENT Head: Normocephalic, Atraumatic Eyes: Normal Pupils: PERRL - Respiratory Respiratory status: No respiratory distress Chest status: Tender - Tenderness to palpation of the center of the chest also left-sided and right-sided. Patient's pain is reproduced by palpation Breath sounds: Normal Chest palpation: Normal - Cardiovascular Rhythm: Regular Heart sounds: Normal auscultation Murmur: No - Abdominal Inspection: Normal Distension: No distension Bowel sounds: Normal Tenderness: Nontender Organomegaly: No organomegaly - Back Back: Normal, Nontender - Extremities General upper extremity: Normal inspection, Nontender, Normal color, Normal ROM , Normal temperature General lower extremity: Normal inspection, Nontender, Normal color, Normal ROM , Normal temperature, Normal weight bearing. No: Sandro's sign - Neurological Neuro grossly intact: Yes Cognition: Normal Orientation: AAOx4 Angel Coma Scale Eye Opening: Spontaneous Angel Coma Scale Verbal: Oriented [place] Coma Scale Motor: Obeys Commands [place] Coma Scale Total: 15 Speech: Normal Motor strength normal: LUE, RUE, LLE, RLE Sensory: Normal - Psychological Associated symptoms: Normal affect, Normal mood - Skin Skin Temperature: Warm Skin Moisture: Dry Skin Color: Normal Course - Re-evaluation Re-evalutation: 12/04/17 20:28 The patient has atypical chest pain as the patient's chest pain is not suggestive of pulmonary embolus, cardiac ischemia, aortic dissection, or other serious etiology. Given the extremely low risk of these diagnoses further testing and evaluation for these possibilities does not appear to be indicated at this time. The patient has been instructed to return if the symptoms worsen or change in any way. Will prescribe patient Vistaril for possible underlying anxiety. Patient was recommended to follow-up with her primary care provider. Motrin will be given for pain control along with Zofran for her nausea. Lab work does not show any critical pathology. Patient is not . - Laboratory Result Diagrams: 12/04/17 15:11 12/04/17 15:11 Laboratory results interpreted by me: 12/04/17 12/04/17 15:11 15:11 MCV 79 L MCH 26.6 L RDW 14.5 H Chloride 110 H AST 170 H ALT 152 H Discharge - Discharge Clinical Impression: Chest wall pain, Anxiety Condition: Good Disposition: HOME, SELF-CARE Instructions: Anti-Inflammatory Medication ([facility]), Anxiety ([facility]), Chest Wall Pain ([facility]) Additional Instructions: Laboratory studies of the EKG did not show any signs of cardiac damage cardiac ischemia heart attack. Her chest x-ray does not show any signs of infection such as pneumonia or any other worrisome etiology. I do believe your chest pain is more likely inflammation of the chest wall possibly exacerbated by some underlying anxiety. Start you on anti-inflammatory medication with Tylenol to help up with your pain. Would recommend using the Vistaril for underlying anxiety as prescribed please follow-up with your physicians. Prescriptions: Hydroxyzine Pamoate [Vistaril 50 mg Capsule] 50 mg PO QHS #14 capsule Ibuprofen [Motrin 600 mg Tablet] 600 mg PO Q8HP PRN #21 tablet PRN Reason: Ondansetron [Zofran Odt] 4 mg PO Q6 PRN #30 tab.rapdis PRN Reason: For Nausea/Vomiting Forms: Return to Work
--- NOTE | 2017-12-05 08:57 | EKG REPORT ---
SEVERITY:- NORMAL ECG - SINUS RHYTHM : Confirmed by: Tayo Mcrae 05-Dec-2017 08:56:38
== END 2017-12-04 16:51 | disposition home or self-care (01) ==
LOC: ER 14:12
DX: R07.89 Other chest pain (principal); F41.9 Anxiety disorder, unspecified; R11.0 Nausea; I10 Essential (primary) hypertension; E11.9 Type 2 diabetes mellitus without complications; Z82.49 Family history of ischemic heart disease and other diseases of the circulatory system
CPT/HCPCS: 36415; 71046; 80053; 84484; 84702; 85025; 93005; 93010; 99284

== ENCOUNTER 2018-01-16 15:04 | Emergency (ER) | payer SELFPAY ==
[2018-01-16 15:25] VITALS: BP 144/58
[2018-01-16] MEDS ORDERED: DIPHENHYDRAMINE HCL 50 MG CAPSULE PO ONE (16:38)
[2018-01-16] MEDS ORDERED: PROCHLORPERAZINE MALEATE 10 MG TABLET PO ONE (16:38)
[2018-01-16] MEDS ORDERED: NAPROXEN 250 MG TABLET PO ONE (16:38)
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
[2018-01-16 17:07] LABS: ABSOLUTE EOSINOPHILS # (AUTO) 0.1 10^3/uL (0.0-0.6); ABSOLUTE MONOCYTES (AUTO) 0.7 10^3/uL (0.1-1.4); ABSOLUTE NEUT (AUTO) 5.7 10^3/uL (1.7-8.2); BASOPHILS % (AUTO) 0.5 % (0-2); EOSINOPHILS % (AUTO) 1.3 % (0-6); HEMATOCRIT 36.3 % (36.0-47.0); HEMOGLOBIN 12.6 g/dL (12.0-15.5); LYMPHOCYTES % (AUTO) 31.2 % (13-45); MEAN CORPUSCULAR HGB CONC 34.6 g/dL (32.0-36.0); MEAN CORPUSCULAR VOLUME 78 fl (80-97); MONOCYTES % (AUTO) 7.3 % (3-13); PLATELET COUNT 297 10^3/uL (150-450); RED BLOOD COUNT 4.65 10^6/uL (3.72-5.28); RED CELL DISTRIBUTION WIDTH 14.6 % (11.5-14.0); SEGMENTED NEUTROPHILS % (AUTO) 59.7 % (42-78); TOTAL CELLS COUNTED % (AUTO) 100 %; WHITE BLOOD COUNT 9.5 10^3/uL (4.0-10.5)
[2018-01-16 17:18] LABS: APPEARANCE,URINE SLIGHTLY-CLOUDY; BILIRUBIN,URINE NEGATIVE (NEGATIVE); COLOR,URINE YELLOW; GLUCOSE, URINE NEGATIVE (NEGATIVE); KETONES,URINE NEGATIVE (NEGATIVE); LEUKOCYTE ESTERASE,URINE MODERATE (NEGATIVE); NITRITE,URINE NEGATIVE (NEGATIVE); PROTEIN,URINE NEGATIVE (NEGATIVE); URINE SPECIFIC GRAVITY 1.032
[2018-01-16 17:42] LABS: ALANINE AMINOTRANSFERASE 36 U/L (9-52); ALBUMIN 3.6 g/dL (3.5-5.0); ALKALINE PHOSPHATASE 78 U/L (38-126); ANION GAP 6 (5-19); ASPARTATE AMINO TRANSFERASE 21 U/L (14-36); BILIRUBIN,DIRECT 0.4 mg/dL (0.0-0.4); BILIRUBIN,TOTAL 0.6 mg/dL (0.2-1.3); BLOOD UREA NITROGEN 13 mg/dL (7-20); CALCIUM 8.8 mg/dL (8.4-10.2); CARBON DIOXIDE 24 mmol/L (22-30); CHLORIDE 108 mmol/L (98-107); CREATINE KINASE 56 U/L (30-135); GLUCOSE 92 mg/dL (75-110); POTASSIUM 4.1 mmol/L (3.6-5.0); SODIUM 138.4 mmol/L (137-145); TOTAL PROTEIN 6.8 g/dL (6.3-8.2)
--- NOTE | 2018-01-16 17:50 | ER Document Report ---
ED General - General Chief Complaint: Headache >24 hrs old Stated Complaint: DIZZY,NAUSEA,HEADACHES Time Seen by Provider: 01/16/18 16:26 Mode of Arrival: Ambulatory Information source: Patient, Relative Notes: Patient is a well-nourished well-developed morbidly obese female who comes in emergency room with multiple complaints. Multiple complaints including headache /migraine with no history of headaches. Chest pain 3-4 days on and off no radiation. She also complains of being lightheaded to the point of near passing out. Also has a feeling of nausea but she cannot throw up. She says her headache is pounding and throbbing pain in the frontal portion. She admits to smoking occasionally. 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 She states she is under excessive amount of stress right now. She also states that she is informed her primary care provider of her chest pain or shortness of breath and had an EKG done but they never figured out what was wrong. TRAVEL OUTSIDE OF THE [place] IN LAST 30 DAYS: No - HPI Onset: Other - Varying onset of time depending on the complaint. Onset/Duration: Intermittent Quality of pain: Pressure, Throbbing Severity: Moderate Pain Level: 3 Associated symptoms: Chest pain, Nausea, Shortness of breath. denies: Vomiting Exacerbated by: Denies Relieved by: Denies Similar symptoms previously: Yes Recently seen / treated by doctor: No - Related Data Allergies/Adverse Reactions: chocolate flavor Adverse Reaction (Verified 01/16/18 15:05) peanut Adverse Reaction (Verified 01/16/18 15:05) Past Medical History - General Information source: Patient - Social History Smoking Status: Current Some Day Smoker Cigarette use (# per day): Yes - 3-4 cigarettes a day Chew tobacco use (# tins/day): No Smoking Education Provided: Yes Frequency of alcohol use: Rare Drug Abuse: None, Marijuana Lives with: Family Family History: Reviewed & Not Pertinent, Arthritis, CAD, DM, Hyperlipidemia, Hypertension, Malignancy, Thyroid Disfunction Patient has suicidal ideation: No Patient has homicidal ideation: No - Past Medical History Cardiac Medical History: Reports: Hx Hypertension Denies: Hx Coronary Artery Disease Pulmonary Medical History: Reports: Hx Bronchitis, Hx Pneumonia Neurological Medical History: Denies: Hx Migraine Endocrine Medical History: Reports: Hx Diabetes Mellitus Type 2. Denies: Hx Hypothyroidism Renal/ Medical History: Reports: Hx Ovarian Cysts - pcos. Denies: Hx Peritoneal Dialysis GI Medical History: Denies: Hx Gastritis, Hx Gastroesophageal Reflux Disease, Hx Irritable Bowel Musculoskeletal Medical History: Denies Hx Fibromyalgia, Denies Hx Muscle Spasm , Denies Hx Muscle Weakness, Reports Hx Musculoskeletal Deformity, Reports Hx Musculoskeletal Trauma Psychiatric Medical History: Reports: Hx Anxiety, Hx Depression Infectious Medical History: Denies: Hx HIV, Hx MRSA Past Surgical History: Reports: Hx Cholecystectomy, Hx Tonsillectomy - Immunizations Immunizations up to date: Yes Hx Diphtheria, Pertussis, Tetanus Vaccination: Yes Review of Systems - Review of Systems Constitutional: No symptoms reported EENT: See HPI, Ear pain Cardiovascular: Lightheaded Respiratory: No symptoms reported Gastrointestinal: Abdominal pain, Nausea Genitourinary: No symptoms reported Female Genitourinary: No symptoms reported Musculoskeletal: No symptoms reported Skin: No symptoms reported Hematologic/Lymphatic: No symptoms reported Neurological/Psychological: See HPI, Depression, Anxiety, Headaches Physical Exam - Vital signs Vitals: Temp Pulse Resp BP Pulse Ox 98.5 F 63 17 144/58 H 99 01/16/18 15:24 01/16/18 15:24 01/16/18 15:24 01/16/18 15:24 01/16/18 15:24 Interpretation: Hypertensive - Notes Notes: Well-nourished well-developed morbidly obese female no apparent distress - General General appearance: Appears well In distress: None - HEENT Head: Normocephalic, Atraumatic Eyes: Normal Mouth/Lips: No: Normal Mucous membranes: Normal, Moist - Respiratory Respiratory status: No respiratory distress Chest status: Nontender Breath sounds: Normal. No: Rales, Rhonchi, Stridor, Wheezing Chest palpation: Normal - Cardiovascular Heart sounds: Normal auscultation Murmur: No - Abdominal Inspection: Normal Distension: Distended Bowel sounds: Hypoactive Tenderness: Tender, Other - Examination of patient's abdomen shows she has some reproducible tenderness midepigastric to palpation. Also with application of pressure mid epigastric area this is what patient feels like she has to vomit.. No: McBurney's point, Heath's sign, Guarding, Rebound Adult front & back diagram: 1 - Pressure applied patient feels like she has to vomit same feeling she has been she complains of. - Extremities General upper extremity: Normal inspection, Nontender, Normal ROM, Normal strength General lower extremity: Normal inspection, Nontender, Normal ROM, Normal strength - Neurological Neuro grossly intact: Yes Cognition: Normal Orientation: AAOx4 Angel Coma Scale Eye Opening: Spontaneous Noble Coma Scale Verbal: Oriented Angel Coma Scale Motor: Obeys Commands Angel Coma Scale Total: 15 Speech: Normal - Skin Skin Temperature: Warm Skin Moisture: Dry Skin Color: Normal Course - Re-evaluation Re-evalutation: 01/16/18 19:40 Patient's workup is been basically negative. At this point I am going to treat her for sinus disease which on her CT of her head showed she had some maxillary mucosal thickening we will try treating that. Also believe she is got going on a reflux and or a early gastric ulcer presentation. Cardiac krueger looks good. So we will put her on Flonase nasal spray, omeprazole, and Carafate have her follow-up with her primary care provider. 01/16/18 19:48 - Vital Signs Vital signs: Temp Pulse Resp BP Pulse Ox 98.5 F 63 17 144/58 H 99 01/16/18 15:24 01/16/18 15:24 01/16/18 15:24 01/16/18 15:24 01/16/18 15:24 - Laboratory Result Diagrams: 01/16/18 16:50 01/16/18 16:50 Laboratory results interpreted by me: 01/16/18 01/16/18 01/16/18 16:35 16:50 16:50 MCV 78 L RDW 14.6 H Chloride 108 H NT-Pro-B Natriuret Pep Urine Urobilinogen 2.0 H Ur Leukocyte Esterase MODERATE H Urine Ascorbic Acid 40 H 01/16/18 16:50 MCV RDW Chloride NT-Pro-B Natriuret Pep 359 H Urine Urobilinogen Ur Leukocyte Esterase Urine Ascorbic Acid Discharge - Discharge Clinical Impression: Sinus disease, Reflux esophagitis, Peptic ulcer Disposition: HOME, SELF-CARE Instructions: Acid-Suppressing Medication ([facility]), Esophagitis ([facility]), Prilosec ( Acid Pump Inhibitor) ([facility]), Sucralfate ([facility]) Additional Instructions: Home and rest. As we discussed I believe some ear head symptoms are coming from her sinuses. We are going to try to fight this with some nasal steroid called Flonase. If you take the GoodRX card and you go to [facility] the cost of the nasal steroid is [phone] since the next cheapest place is [facility] which is 27 miles from here would be 2355. Next place would be [facility] that 2355. And right eye 8 is 2355. [facility] is 2356. You can also use a card for other medications as well but that is the most expensive one. Use it as directed on the prescription. Also I am placing you on some stomach medication for your esophagitis or reflux and your burning sensation midepigastric area. Believe that your cardiac symptoms are really going to be stomach problems. However given all this we have done is negative he still need to see her primary care provider. Should you have concerns between now and the time you do you can return to ER for recheck. Prescriptions: Fluticasone Propionate [Flonase Allergy Relief] 9.9 ml NS DAILY #1 spray.susp Omeprazole 40 mg PO HSP PRN #30 capsule. PRN Reason: Sucralfate [Carafate 1 gm Tablet] 1 gm PO ACHS #120 tablet Forms: Elevated Blood Pressure, Smoking Cessation Education, Return to Work
[2018-01-16 17:56] LABS: CREATINE KINASE MB 0.39 ng/mL (<4.55); NT PRO BNP 359 pg/mL (<125)
[2018-01-16 17:57] LABS: TROPONIN I < 0.012 ng/mL
--- NOTE | 2018-01-16 18:02 | RADIOLOGY REPORT (SQ) ---
EXAM DESCRIPTION: CT HEAD WITHOUT COMPLETED DATE/TIME: 01/16/2018 5:52 pm REASON FOR STUDY: news onset headaches COMPARISON: None. TECHNIQUE: Axial images acquired through the brain without intravenous contrast. Images reviewed wi th bone, brain and subdural windows. Additional sagittal and coronal reconstructions were generated. Images stored on PACS. All CT scanners at this facility use dose modulation, iterative reconstruction, and/or weight based d osing when appropriate to reduce radiation dose to as low as reasonably achievable (ALARA). [facility]: Dose Right [facility]: CareDose [facility]: Dose Right [facility]: Teradose 4D [facility]: Smart Ecelles [place] RADIATION DOSE: CT Rad equipment meets quality standard of care and radiation dose reduction techniq ues were employed. CTDIvol: 53.2 mGy. DLP: 991 mGy-cm. mGy. LIMITATIONS: None. FINDINGS: VENTRICLES: Normal size and contour. CEREBRUM: No masses. No hemorrhage. No midline shift. No evidence for acute infarction. Normal gra y/white matter differentiation. No areas of low density in the white matter. CEREBELLUM: No masses. No hemorrhage. No alteration of density. No evidence for acute infarction. EXTRAAXIAL SPACES: No fluid collections. No masses. ORBITS AND GLOBE: No intra- or extraconal masses. Normal contour of globe without masses. CALVARIUM: No fracture. PARANASAL SINUSES: Small mucous retention cysts are present in the maxillary sinuses. SOFT TISSUES: No mass or hematoma. OTHER: No other significant finding. IMPRESSION: Mild maxillary sinus disease with no acute intracranial imaging findings. EVIDENCE OF ACUTE STROKE: NO. COMMENT: Quality ID # [id number]: Final reports with documentation of one or more dose reduction techniques (e.g., Automated exposure control, adjustment of the mA and/or kV according to patient size, use of iterative reconstruction technique) TECHNICAL DOCUMENTATION: JOB ID: [id number] [employer]- All Rights Reserved Reading location - IP/workstation name: [email or web address]
[2018-01-16 20:14] LABS: URINE AMPHETAMINES SCREEN NEGATIVE; URINE BARBITURATES SCREEN NEGATIVE; URINE BENZODIAZEPINES SCREEN NEGATIVE; URINE COCAINE SCREEN NEGATIVE; URINE MARIJUANA (THC) SCREEN NEGATIVE; URINE METHADONE SCREEN NEGATIVE; URINE PHENCYCLIDINE SCREEN NEGATIVE
--- NOTE | 2018-01-18 18:48 | EKG REPORT ---
SEVERITY:- NORMAL ECG - SINUS RHYTHM : Confirmed by: Tayo Mcrae 18-Jan-2018 18:47:46
== END 2018-01-16 18:00 | disposition home or self-care (01) ==
LOC: ER 15:04
DX: J32.0 Chronic maxillary sinusitis (principal); E66.01 Morbid (severe) obesity due to excess calories; Z68.43 Body mass index [BMI] 50.0-59.9, adult; K21.0 Gastro-esophageal reflux disease with esophagitis; K27.9 Peptic ulcer, site unspecified, unspecified as acute or chronic, without hemorrhage or perforation; R51 Headache; R55 Syncope and collapse; R11.0 Nausea; F41.9 Anxiety disorder, unspecified; F32.9 Major depressive disorder, single episode, unspecified; R06.02 Shortness of breath; R07.9 Chest pain, unspecified; H92.09 Otalgia, unspecified ear; R10.9 Unspecified abdominal pain; I10 Essential (primary) hypertension; E11.9 Type 2 diabetes mellitus without complications; F17.210 Nicotine dependence, cigarettes, uncomplicated
CPT/HCPCS: 93005; 99284; 36415; 82553; 82550; 85025; 81025; 80053; 81001; 84484; 80307; 83880; 70450; 93010; S0183

== ENCOUNTER 2018-01-26 20:49 | Emergency (ER) | payer SELFPAY ==
[2018-01-26 21:18] VITALS: BP 143/75
[2018-01-26] MEDS ORDERED: ONDANSETRON HCL INJ/PF 4 MG/2 ML SDV IV ONE (22:17)
--- NOTE | 2018-01-26 22:18 | ER Document Report ---
ED Medical Screen (RME) - General Chief Complaint: Abdominal Pain Stated Complaint: HEADACHE/ABDOMINAL PAIN Time Seen by Provider: 01/26/18 22:07 Notes: Patient is a 27-year-old female presenting to the emergency department complaining of allover abdominal pain. Patient states she was to the facility on 01/16/2018 for headache, epigastric pain, nausea vomiting. Patient states at that time she was diagnosed with sinusitis and placed on nasal spray and antibiotic. Patient states this has not helped her headaches or nausea. Patient states over the last few days she has had increased abdominal pain in all 4 quadrants. Patient states that times she is called over in a ball and unable to move. Patient states she just recently lost her job and no longer has insurance was cannot follow-up with her primary care provider. Patient states she does have a history of PCOS and hypertension but is not currently taking any medications because again she lost her insurance. Patient denies dysuria, vaginal discharge, chest pain, shortness of breath. Past medical history: PCOS, hypertension Medications: Patient states she is supposed to be taking lisinopril and metformin but again is not due to no insurance. Allergies: None Surgical history: Cholecystectomy Physical exam: Morbidly obese, patient laughing and joking with friend in room upon my entrance into exam room. Patient has generalized abdominal tenderness all 4 quadrants but again is smiling with friend in room. No CVA tenderness. I have greeted and performed a rapid initial assessment of this patient. A comprehensive ED assessment and evaluation of the patient, analysis of test results and completion of the medical decision making process will be conducted by additional ED providers. TRAVEL OUTSIDE OF THE [place] IN LAST 30 DAYS: No - Related Data Allergies/Adverse Reactions: chocolate flavor Adverse Reaction (Verified 01/16/18 15:05) peanut Adverse Reaction (Verified 01/16/18 15:05) Past Medical History - Past Medical History Cardiac Medical History: Reports: Hx Hypertension Denies: Hx Coronary Artery Disease Pulmonary Medical History: Reports: Hx Bronchitis, Hx Pneumonia Neurological Medical History: Denies: Hx Migraine Endocrine Medical History: Reports: Hx Diabetes Mellitus Type 2. Denies: Hx Hypothyroidism Renal/ Medical History: Reports: Hx Ovarian Cysts - pcos. Denies: Hx Peritoneal Dialysis GI Medical History: Denies: Hx Gastritis, Hx Gastroesophageal Reflux Disease, Hx Irritable Bowel Musculoskeltal Medical History: Denies Hx Fibromyalgia, Denies Hx Muscle Spasm, Denies Hx Muscle Weakness, Reports Hx Musculoskeletal Deformity, Reports Hx Musculoskeletal Trauma Psychiatric Medical History: Reports: Hx Anxiety, Hx Depression Infectious Medical History: Denies: Hx HIV, Hx MRSA Past Surgical History: Reports: Hx Cholecystectomy, Hx Tonsillectomy - Immunizations Immunizations up to date: Yes Hx Diphtheria, Pertussis, Tetanus Vaccination: Yes Physical Exam - Vital signs Vitals: Temp Pulse Resp BP Pulse Ox 97.9 F 86 18 143/75 H 98 01/26/18 21:16 01/26/18 21:16 01/26/18 21:16 01/26/18 21:16 01/26/18 21:16 Course - Vital Signs Vital signs: Temp Pulse Resp BP Pulse Ox 97.9 F 86 18 143/75 H 98 01/26/18 21:16 01/26/18 21:16 01/26/18 21:16 01/26/18 21:16 01/26/18 21:16
[2018-01-26 22:59] LABS: ABSOLUTE BASOPHILS # (AUTO) 0.1 10^3/uL (0.0-0.2); ABSOLUTE EOSINOPHILS # (AUTO) 0.1 10^3/uL (0.0-0.6); ABSOLUTE LYMPHOCYTES (AUTO) 4.4 10^3/uL (0.5-4.7); ABSOLUTE MONOCYTES (AUTO) 0.8 10^3/uL (0.1-1.4); ABSOLUTE NEUT (AUTO) 6.2 10^3/uL (1.7-8.2); BASOPHILS % (AUTO) 0.6 % (0-2); EOSINOPHILS % (AUTO) 1.2 % (0-6); HEMATOCRIT 37.6 % (36.0-47.0); HEMOGLOBIN 12.7 g/dL (12.0-15.5); LYMPHOCYTES % (AUTO) 37.8 % (13-45); MEAN CORPUSCULAR HEMOGLOBIN 26.8 pg (27.0-33.4); MEAN CORPUSCULAR HGB CONC 33.7 g/dL (32.0-36.0); MEAN CORPUSCULAR VOLUME 80 fl (80-97); MONOCYTES % (AUTO) 6.9 % (3-13); PLATELET COUNT 321 10^3/uL (150-450); RED BLOOD COUNT 4.73 10^6/uL (3.72-5.28); RED CELL DISTRIBUTION WIDTH 14.2 % (11.5-14.0); SEGMENTED NEUTROPHILS % (AUTO) 53.5 % (42-78); TOTAL CELLS COUNTED % (AUTO) 100 %; WHITE BLOOD COUNT 11.7 10^3/uL (4.0-10.5)
[2018-01-26 23:37] LABS: ALANINE AMINOTRANSFERASE 39 U/L (9-52); ALKALINE PHOSPHATASE 91 U/L (38-126); ANION GAP 11 (5-19); ASPARTATE AMINO TRANSFERASE 25 U/L (14-36); BILIRUBIN,DIRECT 0.3 mg/dL (0.0-0.4); BILIRUBIN,TOTAL 0.7 mg/dL (0.2-1.3); BLOOD UREA NITROGEN 12 mg/dL (7-20); CALCIUM 9.4 mg/dL (8.4-10.2); CARBON DIOXIDE 24 mmol/L (22-30); CHLORIDE 104 mmol/L (98-107); GLUCOSE 88 mg/dL (75-110); LIPASE 104.6 U/L (23-300); POTASSIUM 4.2 mmol/L (3.6-5.0); TOTAL PROTEIN 7.7 g/dL (6.3-8.2)
[2018-01-27] MEDS ORDERED: MAG HYDROX/AL HYDROX/SIMETH SUSP 30 ML UDCUP PO ONE (00:39)
[2018-01-27] MEDS ORDERED: FAMOTIDINE 20 MG TABLET PO ONE (00:39)
--- NOTE | 2018-01-27 00:47 | ER Document Report ---
ED General - General Chief Complaint: Abdominal Pain Stated Complaint: HEADACHE/ABDOMINAL PAIN Time Seen by Provider: 01/26/18 22:07 Mode of Arrival: Ambulatory Information source: Patient TRAVEL OUTSIDE OF THE [place] IN LAST 30 DAYS: No - HPI Notes: Patient is a 27-year-old female presenting to the emergency department complaining of all over abdominal pain. Patient states she was to the facility on 01/16/2018 for headache, epigastric pain, nausea vomiting. Patient had a CT scan of the head which showed a mild maxillary sinusitis, patient states at that time she was diagnosed with sinusitis and placed on nasal spray and antibiotic. Patient states this has not helped her headaches or nausea. Patient states over the last few days she has had increased abdominal pain in all 4 quadrants, worse through the midepigastric region. She states she has been taking ibuprofen recently. Patient states that times she is called over in a ball and unable to move. Patient has a history of previous cholecystectomy. Patient does report a 25 pound weight gain in the last month since stopping her metformin. Patient states she just recently lost her job and no longer has insurance was cannot follow-up with her primary care provider. Patient states she does have a history of PCOS and hypertension but is not currently taking any medications because again she lost her insurance. Patient states she was previously on metformin, but it gave her diarrhea and she was supposed to be switched to something else but now is unable to afford the follow-up care. Patient denies dysuria, vaginal discharge, chest pain, shortness of breath. Patient does have concerned that she may be , as she is currently trying to get . Past medical history: PCOS, hypertension Medications: Patient states she is supposed to be taking lisinopril and metformin but again is not due to no insurance. Allergies: None Surgical history: Cholecystectomy - Related Data Allergies/Adverse Reactions: chocolate flavor Adverse Reaction (Verified 01/16/18 15:05) peanut Adverse Reaction (Verified 01/16/18 15:05) Past Medical History - General Information source: Patient - Social History Smoking Status: Former Smoker Frequency of alcohol use: None Drug Abuse: Marijuana Lives with: Family Family History: Reviewed & Not Pertinent, Arthritis, CAD, DM, Hyperlipidemia, Hypertension, Malignancy, Thyroid Disfunction Patient has suicidal ideation: No Patient has homicidal ideation: No - Past Medical History Cardiac Medical History: Reports: Hx Hypertension Denies: Hx Coronary Artery Disease Pulmonary Medical History: Reports: Hx Bronchitis, Hx Pneumonia Neurological Medical History: Denies: Hx Migraine Endocrine Medical History: Reports: Hx Diabetes Mellitus Type 2. Denies: Hx Hypothyroidism Renal/ Medical History: Reports: Hx Ovarian Cysts - pcos. Denies: Hx Peritoneal Dialysis GI Medical History: Denies: Hx Gastritis, Hx Gastroesophageal Reflux Disease, Hx Irritable Bowel Musculoskeletal Medical History: Denies Hx Fibromyalgia, Denies Hx Muscle Spasm , Denies Hx Muscle Weakness, Reports Hx Musculoskeletal Deformity, Reports Hx Musculoskeletal Trauma Psychiatric Medical History: Reports: Hx Anxiety, Hx Depression Infectious Medical History: Denies: Hx HIV, Hx MRSA Past Surgical History: Reports: Hx Cholecystectomy, Hx Tonsillectomy - Immunizations Immunizations up to date: Yes Hx Diphtheria, Pertussis, Tetanus Vaccination: Yes Review of Systems - Review of Systems -: Yes All other systems reviewed and negative Physical Exam - Vital signs Vitals: Temp Pulse Resp BP Pulse Ox 97.9 F 86 18 143/75 H 98 01/26/18 21:16 01/26/18 21:16 01/26/18 21:16 01/26/18 21:16 01/26/18 21:16 - Notes Notes: PHYSICAL EXAMINATION: GENERAL: Well-appearing, well-nourished and in no acute distress. HEAD: Atraumatic, normocephalic. EYES: Pupils equal round and reactive to light, extraocular movements intact, conjunctiva are normal. ENT: Nares patent, oropharynx clear without exudates. Moist mucous membranes. NECK: Normal range of motion, supple without lymphadenopathy LUNGS: Breath sounds clear to auscultation bilaterally and equal. No wheezes rales or rhonchi. HEART: Regular rate and rhythm without murmurs ABDOMEN: Soft, morbidly obese. Diffusely tender upper abdomen worse through the midepigastric region. No guarding, no rebound. No masses appreciated. Female : deferred Musculoskeletal: Normal range of motion, no pitting or edema. No cyanosis. NEUROLOGICAL: Cranial nerves grossly intact. Normal speech, normal gait. Normal sensory, motor exams PSYCH: Normal mood, normal affect. SKIN: Warm, Dry, normal turgor, no rashes or lesions noted. Course - Re-evaluation Re-evalutation: 01/27/18 00:47 Patient was given Zofran with some improvement in her nausea. Patient was given p.o. Pepcid and p.o. Maalox. 01/27/18 02:45 Patient reported significant relief of her abdominal pain after Pepcid and Maalox. Patient stated she was unable to wait for her urinalysis and a urine and was unable to urinate as she had to take somebody to work and needed to leave immediately. The patient had a serum ordered which is pending currently. The patient refused to stay any further. Given the laboratory studies showing no evidence for anemia or significant electrolyte imbalance or pancreatitis or hepatitis. Findings fit with gastritis. Still need to rule out . I cannot rule out UTI versus dehydration given that she did not provide a urine specimen despite several hours. 01/27/18 03:22 test was negative. I attempted to call the patient at home, but there was no answer. - Vital Signs Vital signs: Temp Pulse Resp BP Pulse Ox 97.9 F 86 18 143/75 H 98 01/26/18 21:16 01/26/18 21:16 01/26/18 21:16 01/26/18 21:16 01/26/18 21:16 - Laboratory Result Diagrams: 01/26/18 22:44 01/26/18 22:44 Laboratory results interpreted by me: 01/26/18 22:44 WBC 11.7 H MCH 26.8 L RDW 14.2 H Discharge - Discharge Clinical Impression: Abdominal pain Qualifiers: Abdominal location: generalized Qualified Code(s): R10.84 - Generalized abdominal pain Gastritis Qualifiers: Gastritis type: unspecified gastritis Chronicity: acute Gastritis bleeding: without bleeding Qualified Code(s): K29.00 - Acute gastritis without bleeding Condition: Stable Disposition: HOME, SELF-CARE Instructions: Abdominal Pain ([facility]), Family Physicians / Practices, Gastritis ( [facility]) Additional Instructions: Avoid anti-inflammatories such as ibuprofen, motrin, naproxen, aleve, as these will irritate your gastritis. Stop the antibiotic, as this is causing gastritis. Prescriptions: Ranitidine HCl 150 mg PO BID #60 tablet
[2018-01-27] MEDS ORDERED: METOCLOPRAMIDE HCL INJ/PF 10 MG/2 ML SDV IV ONE (00:53)
== END 2018-01-27 02:50 | disposition home or self-care (01) ==
LOC: ER 20:49
DX: K29.00 Acute gastritis without bleeding (principal); R10.84 Generalized abdominal pain; R51 Headache; R10.13 Epigastric pain; I10 Essential (primary) hypertension; Z91.010 Allergy to peanuts; Z90.49 Acquired absence of other specified parts of digestive tract
CPT/HCPCS: 99284; 96374; 96375; 36415; 83690; 84703; 85025; 80053; J2765; J2405

== ENCOUNTER 2018-03-04 12:16 | Emergency (ER) | payer SELFPAY ==
[2018-03-04 12:23] VITALS: BP 152/91
[2018-03-04] MEDS ORDERED: ONDANSETRON 4 MG TAB.RAPDIS PO ONE (14:27)
[2018-03-04] MEDS ORDERED: MECLIZINE HCL 25 MG TABLET PO ONE (14:28)
--- NOTE | 2018-03-04 15:30 | ER Document Report ---
ED General - General Chief Complaint: Weakness Stated Complaint: FATIGUE, NAUSEA, HEADACHE Time Seen by Provider: 03/04/18 13:59 Mode of Arrival: Ambulatory Information source: Patient, [facility] Records Notes: 27-year-old female with last hypertension presents with complaint of nausea, vomiting, lightheadedness and concern for hepatitis A and herpes. Patient states that she has had 3 days of nausea and vomiting. She denies any abdominal pain, dysuria, vaginal discharge. She states that her boyfriend was recently diagnosed with hepatitis A approximately 2 months ago and now it is concerned that she may have it. He was also diagnosed with herpes and she is requesting blood work for both. Patient admits that last week she had a painful lesion on her labia which self resolved. She did take a picture and show it to me and the area looked like a small pimple. It was not vesicular but it was pustular. She states it is not currently present.. TRAVEL OUTSIDE OF THE [place] IN LAST 30 DAYS: No - HPI Onset: Other Onset/Duration: Gradual Quality of pain: No pain Associated symptoms: Nausea, Vomiting, Other - Dizziness Exacerbated by: Food Relieved by: Denies Similar symptoms previously: No Recently seen / treated by doctor: No - Related Data Allergies/Adverse Reactions: No Known Drug Allergies Allergy (Verified 03/04/18 12:30) chocolate flavor Adverse Reaction (Verified 03/04/18 12:30) peanut Adverse Reaction (Verified 03/04/18 12:30) Past Medical History - General Information source: Patient, [facility] Records - Social History Smoking Status: Current Every Day Smoker Chew tobacco use (# tins/day): No Frequency of alcohol use: Social Drug Abuse: Marijuana Lives with: Family Family History: Reviewed & Not Pertinent, Arthritis, CAD, DM, Hyperlipidemia, Hypertension, Malignancy, Thyroid Disfunction Patient has suicidal ideation: No Patient has homicidal ideation: No - Past Medical History Cardiac Medical History: Reports: Hx Hypertension Denies: Hx Coronary Artery Disease Pulmonary Medical History: Reports: Hx Bronchitis, Hx Pneumonia Neurological Medical History: Denies: Hx Migraine Endocrine Medical History: Reports: Hx Diabetes Mellitus Type 2. Denies: Hx Hypothyroidism Renal/ Medical History: Reports: Hx Ovarian Cysts - pcos. Denies: Hx Peritoneal Dialysis GI Medical History: Denies: Hx Gastritis, Hx Gastroesophageal Reflux Disease, Hx Irritable Bowel Musculoskeletal Medical History: Denies Hx Fibromyalgia, Denies Hx Muscle Spasm , Denies Hx Muscle Weakness, Reports Hx Musculoskeletal Deformity, Reports Hx Musculoskeletal Trauma Psychiatric Medical History: Reports: Hx Anxiety, Hx Depression Infectious Medical History: Denies: Hx HIV, Hx MRSA Past Surgical History: Reports: Hx Cholecystectomy, Hx Tonsillectomy - Immunizations Immunizations up to date: Yes Hx Diphtheria, Pertussis, Tetanus Vaccination: Yes Review of Systems - Review of Systems Notes: REVIEW OF SYSTEMS: CONSTITUTIONAL : Denies fever, chills, or sweats. Denies recent illness. Denies weight loss, recent hospitalizations. EENT: Denies visual changes, eye pain. Denies sore throat, oral lesions, difficulty swallowing. CARDIOVASCULAR: Denies chest pain. Denies palpitations. Denies lower extremity edema. RESPIRATORY: Denies cough. Denies shortness of breath, wheezing. GASTROINTESTINAL: Denies abdominal pain or distention. Denies r diarrhea. Denies blood in vomitus, stools, or per rectum. Denies black, tarry stools. Denies constipation. GENITOURINARY: Denies difficulty urinating, painful urination, frequency, blood in urine, or vaginal discharge. MUSCULOSKELETAL: Denies back or neck pain or stiffness. Denies joint pain or swelling. SKIN: Denies rash, lesions or sores. HEMATOLOGIC : Denies easy bruising or bleeding. LYMPHATIC: Denies swollen glands. NEUROLOGICAL: Denies confusion or altered mental status. Denies loss of consciousness. Denies headache. Denies weakness or paralysis. Denies problems difficulty with ambulation, slurred speech. Denies sensory loss, numbness, or tingling. Denies seizures. PSYCHIATRIC: Denies anxiety or stress. Denies depression, suicidal ideation, or homicidal ideation. Denies visual or auditory hallucinations. Physical Exam - Vital signs Vitals: Temp Pulse Resp BP Pulse Ox 97.8 F 79 16 152/91 H 99 03/04/18 12:22 03/04/18 12:22 03/04/18 12:22 03/04/18 12:22 03/04/18 12:22 - Notes Notes: PHYSICAL EXAMINATION: GENERAL: Well-appearing, well-nourished and in no acute distress. HEAD: Atraumatic, normocephalic. EYES: Pupils equal round and reactive to light, extraocular movements intact, conjunctiva are normal. ENT: Nares patent, oropharynx clear without exudates. Moist mucous membranes. NECK: Normal range of motion, supple without lymphadenopathy LUNGS: Breath sounds clear to auscultation bilaterally and equal. No wheezes rales or rhonchi. HEART: Regular rate and rhythm without murmurs ABDOMEN: Soft, nontender, nondistended abdomen. No guarding, no rebound. No masses appreciated. Female : Left prior to being performed Musculoskeletal: Normal range of motion, no pitting or edema. No cyanosis. NEUROLOGICAL: Cranial nerves grossly intact. Normal speech, normal gait. Normal sensory, motor exams PSYCH: Normal mood, normal affect. SKIN: Warm, Dry, normal turgor, no rashes or lesions noted. Course - Re-evaluation Re-evalutation: 03/04/18 21:31 27-year-old female presents with nausea, vomiting, dizziness and concern for hepatitis and herpes. States that she has had 3 days of nausea and vomiting. Has been feeling lightheaded. Upon arrival vitals were reviewed and patient is hypertensive but afebrile and hypoxic. She does not appear toxic or dehydrated. She is in no acute distress. Patient has a normal physical exam. Had planned on performing a pelvic exam but patient requesting discharge prior to pelvic exam and obtaining blood work and urinalysis. Patient stated that she had to be somewhere. She was encouraged to return for already planned workup. She is requesting nausea medication which was provided to her. Patient discharged home in stable condition. 03/04/18 21:31 - Vital Signs Vital signs: Temp Pulse Resp BP Pulse Ox 97.8 F 79 16 152/91 H 99 03/04/18 12:22 03/04/18 12:22 03/04/18 12:22 03/04/18 12:22 03/04/18 12:22 Discharge - Discharge Clinical Impression: Elevated blood pressure reading, Concern about infectious hepatitis without diagnosis, Concern for herpes Nausea & vomiting Qualifiers: Vomiting type: unspecified Vomiting Intractability: unspecified Qualified Code( s): R11.2 - Nausea with vomiting, unspecified Condition: Good Disposition: HOME, SELF-CARE Instructions: Antinausea Medication ([facility]), Viral Syndrome ([facility]), Vomiting ([facility]) Additional Instructions: Without blood work we are unable to tell you whether or not you have herpes or hepatitis. He will be prescribed Zofran for your nausea. Please return at any time for further testing. Prescriptions: Ondansetron [Zofran Odt 4 mg Tablet] 1 tab PO Q4H PRN #15 tab.rapdis PRN Reason: For Nausea/Vomiting Forms: Elevated Blood Pressure, Return to Work
== END 2018-03-04 15:37 | disposition home or self-care (01) ==
LOC: ER 12:16
DX: Z20.828 Contact with and (suspected) exposure to other viral communicable diseases (principal); I10 Essential (primary) hypertension; R11.2 Nausea with vomiting, unspecified; R42 Dizziness and giddiness; F12.10 Cannabis abuse, uncomplicated; E11.9 Type 2 diabetes mellitus without complications; F17.200 Nicotine dependence, unspecified, uncomplicated; Z90.49 Acquired absence of other specified parts of digestive tract
CPT/HCPCS: 99284; S0119

== ENCOUNTER 2018-04-04 12:26 | Emergency (ER) | payer SELFPAY ==
--- NOTE | 2018-04-04 12:40 | ER Document Report ---
ED Medical Screen (RME) - General Chief Complaint: Dizziness Stated Complaint: DIZZY Time Seen by Provider: 04/04/18 12:38 Mode of Arrival: Ambulatory Information source: Patient TRAVEL OUTSIDE OF THE [place] IN LAST 30 DAYS: No - HPI Patient complains to provider of: dizzy; LEROY; numbness Onset: Other - pt. with multiple c/o including dizziness; lightheadedness; numbness; and swelling in hands and feet for several days. - Related Data Allergies/Adverse Reactions: No Known Drug Allergies Allergy (Verified 04/04/18 12:26) chocolate flavor Adverse Reaction (Verified 04/04/18 12:26) peanut Adverse Reaction (Verified 04/04/18 12:26) Past Medical History - Social History Chew tobacco use (# tins/day): No Frequency of alcohol use: Occasional Drug Abuse: Marijuana - Past Medical History Cardiac Medical History: Reports: Hx Hypertension Denies: Hx Coronary Artery Disease Pulmonary Medical History: Reports: Hx Bronchitis, Hx Pneumonia Neurological Medical History: Denies: Hx Migraine Endocrine Medical History: Reports: Hx Diabetes Mellitus Type 2. Denies: Hx Hypothyroidism Renal/ Medical History: Reports: Hx Ovarian Cysts - pcos. Denies: Hx Peritoneal Dialysis GI Medical History: Denies: Hx Gastritis, Hx Gastroesophageal Reflux Disease, Hx Irritable Bowel Musculoskeltal Medical History: Denies Hx Fibromyalgia, Denies Hx Muscle Spasm, Denies Hx Muscle Weakness, Reports Hx Musculoskeletal Deformity, Reports Hx Musculoskeletal Trauma Psychiatric Medical History: Reports: Hx Anxiety, Hx Depression Infectious Medical History: Denies: Hx HIV, Hx MRSA Past Surgical History: Reports: Hx Cholecystectomy, Hx Tonsillectomy - Immunizations Immunizations up to date: Yes Hx Diphtheria, Pertussis, Tetanus Vaccination: Yes Physical Exam - Vital signs Vitals: Temp Pulse Resp BP Pulse Ox 98.6 F 93 18 144/82 H 99 04/04/18 12:28 04/04/18 12:28 04/04/18 12:28 04/04/18 12:28 04/04/18 12:28 Course - Vital Signs Vital signs: Temp Pulse Resp BP Pulse Ox 98.6 F 93 18 144/82 H 99 04/04/18 12:28 04/04/18 12:28 04/04/18 12:28 04/04/18 12:28 04/04/18 12:28
--- NOTE | 2018-04-04 13:43 | RADIOLOGY REPORT (SQ) ---
EXAM DESCRIPTION: CHEST 2 VIEWS COMPLETED DATE/TIME: 04/04/2018 1:26 pm REASON FOR STUDY: cp COMPARISON: 12/04/2017 EXAM PARAMETERS: NUMBER OF VIEWS: two views TECHNIQUE: Digital Frontal and Lateral radiographic views of the chest acquired. RADIATION DOSE: NA LIMITATIONS: none FINDINGS: LUNGS AND PLEURA: No opacities, masses or pneumothorax. No pleural effusion. MEDIASTINUM AND HILAR STRUCTURES: No masses or contour abnormalities. HEART AND VASCULAR STRUCTURES: Heart normal size. No evidence for failure. BONES: No acute findings. HARDWARE: None in the chest. OTHER: No other significant finding. IMPRESSION: No acute abnormality of the lungs. No focal airspace opacity. TECHNICAL DOCUMENTATION: JOB ID: [id number] [employer]- All Rights Reserved Reading location - IP/workstation name: [email or web address]
[2018-04-04 13:47] LABS: ABSOLUTE EOSINOPHILS # (AUTO) 0.1 10^3/uL (0.0-0.6); ABSOLUTE LYMPHOCYTES (AUTO) 2.8 10^3/uL (0.5-4.7); ABSOLUTE MONOCYTES (AUTO) 0.7 10^3/uL (0.1-1.4); ABSOLUTE NEUT (AUTO) 4.7 10^3/uL (1.7-8.2); BASOPHILS % (AUTO) 0.3 % (0-2); EOSINOPHILS % (AUTO) 1.2 % (0-6); HEMATOCRIT 37.1 % (36.0-47.0); HEMOGLOBIN 12.5 g/dL (12.0-15.5); LYMPHOCYTES % (AUTO) 33.1 % (13-45); MEAN CORPUSCULAR HEMOGLOBIN 26.2 pg (27.0-33.4); MEAN CORPUSCULAR HGB CONC 33.7 g/dL (32.0-36.0); MEAN CORPUSCULAR VOLUME 78 fl (80-97); MONOCYTES % (AUTO) 8.4 % (3-13); PLATELET COUNT 308 10^3/uL (150-450); RED BLOOD COUNT 4.76 10^6/uL (3.72-5.28); RED CELL DISTRIBUTION WIDTH 13.9 % (11.5-14.0); TOTAL CELLS COUNTED % (AUTO) 100 %; WHITE BLOOD COUNT 8.3 10^3/uL (4.0-10.5)
[2018-04-04 13:55] LABS: APPEARANCE,URINE CLOUDY; BILIRUBIN,URINE NEGATIVE (NEGATIVE); COLOR,URINE YELLOW; GLUCOSE, URINE NEGATIVE (NEGATIVE); KETONES,URINE NEGATIVE (NEGATIVE); LEUKOCYTE ESTERASE,URINE LARGE (NEGATIVE); NITRITE,URINE NEGATIVE (NEGATIVE); PROTEIN,URINE NEGATIVE (NEGATIVE); URINE SPECIFIC GRAVITY 1.025; UROBILINOGEN,URINE NEGATIVE mg/dL (<2.0)
[2018-04-04 14:02] LABS: ALANINE AMINOTRANSFERASE 26 U/L (9-52); ALBUMIN 3.9 g/dL (3.5-5.0); ALKALINE PHOSPHATASE 89 U/L (38-126); ANION GAP 8 (5-19); ASPARTATE AMINO TRANSFERASE 17 U/L (14-36); BILIRUBIN,DIRECT 0.2 mg/dL (0.0-0.4); BILIRUBIN,TOTAL 0.7 mg/dL (0.2-1.3); BLOOD UREA NITROGEN 13 mg/dL (7-20); CALCIUM 9.3 mg/dL (8.4-10.2); CARBON DIOXIDE 26 mmol/L (22-30); CHLORIDE 108 mmol/L (98-107); GLUCOSE 95 mg/dL (75-110); SODIUM 141.5 mmol/L (137-145); TOTAL PROTEIN 7.3 g/dL (6.3-8.2)
[2018-04-04] MEDS ORDERED: MECLIZINE HCL 25 MG TABLET PO ONE (14:48)
[2018-04-04] MEDS ORDERED: ACETAMINOPHEN 325 MG TABLET PO ONE (14:48)
[2018-04-04] MEDS ORDERED: CEPHALEXIN 500 MG CAPSULE PO ONE (14:49)
--- NOTE | 2018-04-04 14:55 | ER Document Report ---
ED General - General Chief Complaint: Dizziness Stated Complaint: DIZZY Time Seen by Provider: 04/04/18 12:38 Mode of Arrival: Ambulatory Information source: Patient Notes: Patient presents complaining of dizziness off and on for the past 2 weeks. Patient describes dizziness as feeling off balance. Patient states that the episodes occur randomly and only last for a few minutes. Patient presently denies any lightheadedness or dizziness at this time. Patient states that she will get migraines occasionally over the past 2 weeks. Patient denies any nausea vomiting or diarrhea. Patient states that occasionally she will get chest discomfort and 3 days ago she had left upper quadrant abdominal pain that lasted for about 10-15 minutes. Patient presently denies any chest pain cough or cold symptoms. Patient denies any abdominal tenderness. Patient states that whenever she works long hours she will have leg swelling but it resolves when she is not working. Patient does report sinus congestion and frequent sneezing. TRAVEL OUTSIDE OF THE [place] IN LAST 30 DAYS: No - HPI Onset: Other - 2 weeks Onset/Duration: Persistent Quality of pain: Achy Pain Level: 3 Associated symptoms: Rhinnorhea. denies: Chest pain, Nonproductive cough, Productive cough, Diarrhea, Fever, Nausea, Vomiting, Shortness of breath Exacerbated by: Denies Relieved by: Denies Similar symptoms previously: Yes Recently seen / treated by doctor: No - Related Data Allergies/Adverse Reactions: No Known Drug Allergies Allergy (Verified 04/04/18 12:26) chocolate flavor Adverse Reaction (Verified 04/04/18 12:26) peanut Adverse Reaction (Verified 04/04/18 12:26) Past Medical History - General Information source: Patient - Social History Smoking Status: Never Smoker Chew tobacco use (# tins/day): No Smoking Education Provided: No Frequency of alcohol use: Occasional Drug Abuse: Marijuana 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 Denies: Hx Peritoneal Dialysis Musculoskeletal Medical History: Reports Hx Musculoskeletal Deformity, Reports Hx Musculoskeletal Trauma Psychiatric Medical History: Reports: Hx Anxiety, Hx Depression Past Surgical History: Reports: Hx Cholecystectomy, Hx Tonsillectomy - Immunizations Immunizations up to date: Yes Hx Diphtheria, Pertussis, Tetanus Vaccination: Yes Review of Systems - Review of Systems Constitutional: No symptoms reported. denies: Fever, Recent illness EENT: Nose congestion, Sinus pressure. denies: Throat pain Cardiovascular: Dizziness. denies: Chest pain, Palpitations, Heart racing Respiratory: No symptoms reported. denies: Cough, Short of breath Gastrointestinal: No symptoms reported. denies: Abdominal pain, Diarrhea, Vomiting Genitourinary: No symptoms reported. denies: Dysuria Female Genitourinary: No symptoms reported Musculoskeletal: Leg swelling - After working long hours, none at this time Skin: No symptoms reported Hematologic/Lymphatic: No symptoms reported Neurological/Psychological: Headaches. denies: Confusion, Weakness Physical Exam - Vital signs Vitals: Temp Pulse Resp BP Pulse Ox 98.6 F 93 18 144/82 H 99 04/04/18 12:28 04/04/18 12:28 04/04/18 12:28 04/04/18 12:28 04/04/18 12:28 - General General appearance: Appears well, Alert In distress: None Notes: morbidly obese - HEENT Head: Normocephalic, Atraumatic Eyes: Normal Conjunctiva: Normal Extraocular movements intact: Yes Pupils: PERRL Ears: Normal External canal: Normal Tympanic membrane: Serous effusion - left Sinus: Frontal, Tenderness. No: Redness, Swelling Nasal: Clear rhinorrhea. No: Purulent discharge Mouth/Lips: Normal Mucous membranes: Normal Pharynx: Normal. No: Erythema, Exudate, Peritonsillar abscess Neck: Normal, Supple. No: Lymphadenopathy, Meningismus - Respiratory Respiratory status: No respiratory distress Chest status: Nontender Breath sounds: Normal. No: Nonproductive cough, Productive cough Chest palpation: Normal. No: Tender - Cardiovascular Rhythm: Regular Heart sounds: S1 appreciated, S2 appreciated Murmur: No - Abdominal Inspection: Morbidly Obese Tenderness: Nontender - Back Back: Normal, Nontender. No: CVA tenderness - Extremities General upper extremity: Normal inspection, Normal strength General lower extremity: Normal inspection, Normal strength - Neurological Neuro grossly intact: Yes Cognition: Normal Angel Coma Scale Eye Opening: Spontaneous Kerrick Coma Scale Verbal: Oriented Kerrick Coma Scale Motor: Obeys Commands Angel Coma Scale Total: 15 - Psychological Associated symptoms: Normal affect, Normal mood - Skin Skin Temperature: Warm Skin Moisture: Dry Skin Color: Normal Course - Re-evaluation Re-evalutation: 04/04/18 14:50 Patient with essentially benign diagnostic evaluation with the exception of UTI. Patient does present with sinus congestion symptoms and frontal headache pain. No meningismus. Patient without any chest pain or abdominal pain symptoms at this time. Patient reports intermittent dizziness that lasts just for a few seconds that has been off and on for several months. Patient has been seen in the ER for this problem in the past. The patient presents with headache without signs of INVESTIGATION OFFICER bleed, stroke, infection, or other serious etiology. The patient is neurologically intact. Given the extremely low risk of these diagnoses further testing and evaluation for these possibilities does not appear to be indicated at this time. The patient has been instructed to return if the symptoms worsen or change in any way. Patient is PERC negative at this time, no concern for PE. Patient reports a history of lower extremity swelling that occurs after working long shifts sitting down for long periods of time. Patient without any edema at this time. Pt denies any chest pain at this time. Patient denies any dizzy symptoms. - Vital Signs Vital signs: Temp Pulse Resp BP Pulse Ox 98.1 F 84 18 142/87 H 100 04/04/18 15:25 04/04/18 15:25 04/04/18 15:25 04/04/18 15:25 04/04/18 15:25 - Laboratory Result Diagrams: 04/04/18 13:13 04/04/18 13:13 Laboratory results interpreted by me: 04/04/18 04/04/18 04/04/18 13:13 13:13 13:13 MCV 78 L MCH 26.2 L Chloride 108 H Ur Leukocyte Esterase LARGE H 04/04/18 14:53 Labs- Entire Visit 04/04/18 04/04/18 04/04/18 13:13 13:13 13:13 WBC 8.3 RBC 4.76 Hgb 12.5 Hct 37.1 MCV 78 L MCH 26.2 L MCHC 33.7 RDW 13.9 Plt Count 308 Seg Neutrophils % 57.0 Lymphocytes % 33.1 Monocytes % 8.4 Eosinophils % 1.2 Basophils % 0.3 Absolute Neutrophils 4.7 Absolute Lymphocytes 2.8 Absolute Monocytes 0.7 Absolute Eosinophils 0.1 Absolute Basophils 0.0 Sodium 141.5 Potassium 4.0 Chloride 108 H Carbon Dioxide 26 Anion Gap 8 BUN 13 Creatinine 0.67 Est GFR ( Amer) > 60 Est GFR (Non-Af Amer) > 60 Glucose 95 Calcium 9.3 Total Bilirubin 0.7 Direct Bilirubin 0.2 Neonat Total Bilirubin Not Reportable Neonat Direct Bilirubin Not Reportable Neonat Indirect Bili Not Reportable AST 17 ALT 26 Alkaline Phosphatase 89 Total Protein 7.3 Albumin 3.9 Serum HCG, Qual Urine Color YELLOW Urine Appearance CLOUDY Urine pH 5.0 Ur Specific [place] 1.025 Urine Protein NEGATIVE Urine Glucose (UA) NEGATIVE Urine Ketones NEGATIVE Urine Blood NEGATIVE Urine Nitrite NEGATIVE Urine Bilirubin NEGATIVE Urine Urobilinogen NEGATIVE Ur Leukocyte Esterase LARGE H Urine WBC (Auto) 21 Urine RBC (Auto) 70 Urine Bacteria (Auto) TRACE Squamous Epi Cells Auto 28 Urine Mucus (Auto) FEW Urine Ascorbic Acid NEGATIVE Urine HCG, Qual NEGATIVE 04/04/18 13:13 WBC RBC Hgb Hct MCV MCH MCHC RDW Plt Count Seg Neutrophils % Lymphocytes % Monocytes % Eosinophils % Basophils % Absolute Neutrophils Absolute Lymphocytes Absolute Monocytes Absolute Eosinophils Absolute Basophils Sodium Potassium Chloride Carbon Dioxide Anion Gap BUN Creatinine Est GFR ( Amer) Est GFR (Non-Af Amer) Glucose Calcium Total Bilirubin Direct Bilirubin Neonat Total Bilirubin Neonat Direct Bilirubin Neonat Indirect Bili AST ALT Alkaline Phosphatase Total Protein Albumin Serum HCG, Qual NEGATIVE Urine Color Urine Appearance Urine pH Ur Specific [place] Urine Protein Urine Glucose (UA) Urine Ketones Urine Blood Urine Nitrite Urine Bilirubin Urine Urobilinogen Ur Leukocyte Esterase Urine WBC (Auto) Urine RBC (Auto) Urine Bacteria (Auto) Squamous Epi Cells Auto Urine Mucus (Auto) Urine Ascorbic Acid Urine HCG, Qual - Diagnostic Test Radiology reviewed: Reports reviewed Discharge - Discharge Clinical Impression: Sinus congestion, Vertigo Headache Qualifiers: Headache type: unspecified Headache chronicity pattern: unspecified pattern Intractability: not intractable Qualified Code(s): R51 - Headache UTI (urinary tract infection) Qualifiers: Urinary tract infection type: site unspecified Hematuria presence: with hematuria Qualified Code(s): N39.0 - Urinary tract infection, site not specified Condition: Stable Disposition: HOME, SELF-CARE Instructions: Cephalexin ([facility]), Headache ([facility]), Meclizine ([facility]), Urinary Tract Infection ([facility]), Vertigo ([facility]) Additional Instructions: Return immediately for any new or worsening symptoms Followup with your primary care provider, call tomorrow to make a followup appointment Follow-up with your primary care provider for recheck Change positions frequently while you are at work and sitting for long periods of time. Prescriptions: Butalb/Acetaminophen/Caffeine [Fioricet (50-325-40 mg) Tablet] 1 - 2 tab PO Q4H PRN #12 each PRN Reason: Cephalexin Monohydrate [Keflex 500 mg Capsule] 500 mg PO Q6H 5 Days capsule Fluticasone Propionate [Flonase Nasal [place] 50 Mcg/[place] 16 gm] 2 spray NASL DAILY #1 bottle Meclizine HCl [Antivert 25 mg Tablet] 25 mg PO ASDIR PRN #15 tablet PRN Reason: Forms: Return to Work Referrals: [facility] [Provider Group] - 04/06/18
[2018-04-04 15:28] VITALS: BP 142/87
== END 2018-04-04 15:32 | disposition home or self-care (01) ==
LOC: ER 12:26
DX: R42 Dizziness and giddiness (principal); J34.89 Other specified disorders of nose and nasal sinuses; N39.0 Urinary tract infection, site not specified; R06.7 Sneezing; R09.81 Nasal congestion; I10 Essential (primary) hypertension; R51 Headache; E66.01 Morbid (severe) obesity due to excess calories
CPT/HCPCS: 36415; 71046; 80053; 81001; 81025; 84703; 85025; 99284

== ENCOUNTER 2018-04-15 13:09 | Emergency (ER) | payer SELFPAY ==
[2018-04-15] MEDS ORDERED: DIPHENHYDRAMINE HCL 25 MG CAPSULE PO ONE (14:16)
[2018-04-15] MEDS ORDERED: PROCHLORPERAZINE MALEATE 10 MG TABLET PO ONE (14:16)
--- NOTE | 2018-04-15 14:16 | ER Document Report ---
ED Medical Screen (RME) - General Chief Complaint: Leg Swelling Stated Complaint: FEET AND LEG SWELLING, PAIN Time Seen by Provider: 04/15/18 14:14 Mode of Arrival: Wheelchair Information source: Patient Notes: 27-year-old female presented to ED for complaint of migraines swelling to her legs swelling to her feet and no relief from symptoms that she has been here multiple times this year for. She has been here about 6 or 7 times in the last 6 months. She states that she has been treated with multiple different treatments with no relief. She states today she is having sick feeling all over with dizziness migraine and swelling to her legs and feet. Will patient will be treated with some Compazine and Benadryl and blood and urine obtained and she will be followed assessed by another provider. At this time her lungs are clear respirations are regular and unlabored speaking in full sentences. She does have some pedal edema bilaterally. Pedal pulses are present. I have greeted and performed a rapid initial assessment of this patient. A comprehensive ED assessment and evaluation of the patient, analysis of test results and completion of medical decision making process will be conducted by an additional ED providers. TRAVEL OUTSIDE OF THE [place] IN LAST 30 DAYS: No - Related Data Allergies/Adverse Reactions: No Known Drug Allergies Allergy (Verified 04/15/18 13:10) chocolate flavor Adverse Reaction (Verified 04/15/18 13:10) peanut Adverse Reaction (Verified 04/15/18 13:10) Past Medical History - Social History Chew tobacco use (# tins/day): No Frequency of alcohol use: Social Drug Abuse: Marijuana - Past Medical History Cardiac Medical History: Reports: Hx Hypertension Denies: Hx Coronary Artery Disease Pulmonary Medical History: Reports: Hx Bronchitis, Hx Pneumonia Neurological Medical History: Reports: Hx Migraine Endocrine Medical History: Reports: Hx Diabetes Mellitus Type 2. Denies: Hx Hypothyroidism Renal/ Medical History: Reports: Hx Ovarian Cysts - pcos. Denies: Hx Peritoneal Dialysis GI Medical History: Denies: Hx Gastritis, Hx Gastroesophageal Reflux Disease, Hx Irritable Bowel Musculoskeltal Medical History: Denies Hx Fibromyalgia, Denies Hx Muscle Spasm, Denies Hx Muscle Weakness, Reports Hx Musculoskeletal Deformity, Reports Hx Musculoskeletal Trauma Psychiatric Medical History: Reports: Hx Anxiety, Hx Depression Infectious Medical History: Denies: Hx HIV, Hx MRSA Past Surgical History: Reports: Hx Cholecystectomy, Hx Tonsillectomy - Immunizations Immunizations up to date: Yes Hx Diphtheria, Pertussis, Tetanus Vaccination: Yes Physical Exam - Vital signs Vitals: Temp Pulse Resp BP Pulse Ox 98.2 F 79 18 135/69 H 98 04/15/18 13:22 04/15/18 13:22 04/15/18 13:22 04/15/18 13:22 04/15/18 13:22 Course - Vital Signs Vital signs: Temp Pulse Resp BP Pulse Ox 98.2 F 79 18 135/69 H 98 04/15/18 13:22 04/15/18 13:22 04/15/18 13:22 04/15/18 13:22 04/15/18 13:22
--- NOTE | 2018-04-15 17:39 | ER Document Report ---
ED General - General Chief Complaint: Leg Swelling Stated Complaint: FEET AND LEG SWELLING, PAIN Time Seen by Provider: 04/15/18 14:14 Mode of Arrival: Wheelchair TRAVEL OUTSIDE OF THE [place] IN LAST 30 DAYS: No - HPI Notes: Patient is a 27-year-old female that presents to the emergency department for chief complaint of peripheral edema and headaches. Patient presents the emergency room with multiple complaints. She states over the last 3-4 weeks she has had increased headaches. Patient states that she has a history of migraines but they are becoming more frequent. She describes it as a throbbing diffuse sensation. She has been taking "all of the [id number] medicines" but she can and none of them are relieving her symptoms. Currently she states she did get some improvement of her headache from medicines given in triage. Patient also complaining of peripheral edema for the last 3-4 weeks. She states her legs are crampy and have become more swollen. She denies any chest pain, shortness of breath or palpitations she does have a history of hypertension and is in the process of changing around her blood pressure medicine for better BP control. Past Medical History: Hypertension, depression Past Surgical History: Cholecystectomy Social History: Frequent tobacco, frequent marijuana, social alcohol Family History: Reviewed and noncontributory for presenting illness Allergies: Reviewed, see documented allergy list. REVIEW OF SYSTEMS: CONSTITUTIONAL : No fever No chills No diaphoresis No recent illness EENT: No vision changes No congestion No sore throat CARDIOVASCULAR: No chest pain No palpitations RESPIRATORY: No shortness of breath No cough No difficulty breathing GASTROINTESTINAL: No abdominal pain No nausea No vomiting No diarrhea GENITOURINARY: No dysuria No hematuria No difficulty urinating MUSCULOSKELETAL: No back pain leg pain Leg edema No arm pain SKIN: No rashes No lesions LYMPHATIC: No swollen, enlarged glands. NEUROLOGICAL: No lightheadedness headache No weakness No paresthesias PSYCHIATRIC: No anxiety No depression PHYSICAL EXAMINATION: Vital signs reviewed, nursing noted reviewed. GENERAL: Well-appearing, obese and in no acute distress. HEAD: Atraumatic, normocephalic. EYES: Eyes appear normal, extraocular movements intact, sclera anicteric, conjunctiva are normal. ENT: nares patent, oropharynx clear without exudates. Moist mucous membranes. NECK: Normal range of motion, supple without lymphadenopathy LUNGS: Breath sounds clear to auscultation bilaterally and equal. No wheezes rales or rhonchi. HEART: Regular rate and rhythm without murmurs ABDOMEN: Soft, nontender, normoactive bowel sounds. No rebound, guarding, or rigidity. No masses appreciated. EXTREMITIES: Nontender, good range of motion, +2 pitting edema bilateral lower extremity, symmetric NEUROLOGICAL: No focal neurological deficits. Moves all extremities spontaneously Motor and sensory grossly intact on exam. PSYCH: Normal mood, normal affect. SKIN: Warm, Dry, normal turgor, no rashes or lesions noted on exposed skin - Related Data Allergies/Adverse Reactions: No Known Drug Allergies Allergy (Verified 04/15/18 13:10) chocolate flavor Adverse Reaction (Verified 04/15/18 13:10) peanut Adverse Reaction (Verified 04/15/18 13:10) Past Medical History - General Information source: Patient - Social History Smoking Status: Current Some Day Smoker Chew tobacco use (# tins/day): No Frequency of alcohol use: Social Drug Abuse: Marijuana Family History: Reviewed & Not Pertinent, Arthritis, CAD, DM, Hyperlipidemia, Hypertension, Malignancy, Thyroid Disfunction Patient has suicidal ideation: No Patient has homicidal ideation: No - Past Medical History Cardiac Medical History: Reports: Hx Hypertension Denies: Hx Coronary Artery Disease Pulmonary Medical History: Reports: Hx Bronchitis, Hx Pneumonia Neurological Medical History: Reports: Hx Migraine Endocrine Medical History: Reports: Hx Diabetes Mellitus Type 2. Denies: Hx Hypothyroidism Renal/ Medical History: Reports: Hx Ovarian Cysts - pcos. Denies: Hx Peritoneal Dialysis GI Medical History: Denies: Hx Gastritis, Hx Gastroesophageal Reflux Disease, Hx Irritable Bowel Musculoskeletal Medical History: Denies Hx Fibromyalgia, Denies Hx Muscle Spasm, Denies Hx Muscle Weakness, Reports Hx Musculoskeletal Deformity, Reports Hx Musculoskeletal Trauma Psychiatric Medical History: Reports: Hx Anxiety, Hx Depression Infectious Medical History: Denies: Hx HIV, Hx MRSA Past Surgical History: Reports: Hx Cholecystectomy, Hx Tonsillectomy - Immunizations Immunizations up to date: Yes Hx Diphtheria, Pertussis, Tetanus Vaccination: Yes Physical Exam - Vital signs Vitals: Temp Pulse Resp BP Pulse Ox 98.2 F 79 18 135/69 H 98 04/15/18 13:22 04/15/18 13:22 04/15/18 13:22 04/15/18 13:22 04/15/18 13:22 Course - Re-evaluation Re-evalutation: 04/15/18 17:35 Vitals reviewed. Nursing notes reviewed. Patient is complaining of peripheral edema and ultrasound will be obtained to evaluate for underlying DVT. She has no signs of cellulitis overlying. Patient also complaining of frequent migraines but did get improvement in triage. Her migraine has continued and she will be given Fioricet for further management. She has an appointment with primary care on 04/30 which she is encouraged to keep. She was counseled on smoking cessation and marijuana cessation. 04/15/18 18:28 Venous duplex negative for DVT bilaterally - Vital Signs Vital signs: Temp Pulse Resp BP Pulse Ox 98.2 F 79 18 135/69 H 98 04/15/18 13:22 04/15/18 13:22 04/15/18 13:22 04/15/18 13:22 04/15/18 13:22 Discharge - Discharge Clinical Impression: Peripheral edema Migraine Qualifiers: Migraine type: unspecified Status migrainosus presence: without status migrainosus Intractability: not intractable Qualified Code(s): G43.909 - Migraine, unspecified, not intractable, without status migrainosus Condition: Stable Disposition: HOME, SELF-CARE Instructions: Edema, Peripheral ([facility]), Migraine Headache ([facility]) Additional Instructions: Please return to the emergency department if you have any worsening, or concern of your symptoms. Please return to the emergency department if you develop chest pain, difficulty breathing, severe abdominal pain, or ongoing vomiting. Please follow-up with your primary care physician in 2-3 days and any other recommended physicians. If prescribed, take all medications as directed. If you have any questions or concerns do not hesitate to return the emergency department for evaluation. Stop smoking marijuana Prescriptions: Butalb/Acetaminophen/Caffeine [Fioricet (50-325-40 mg) Tablet] 1 tab PO Q4HP PRN #15 tab PRN Reason: headache Forms: Smoking Cessation Education Referrals: [facility] [Provider Group] - Follow up as needed
[2018-04-15] MEDS ORDERED: BUTALB/ACETAMINOPHEN/CAFFEINE 1 TAB EACH PO ONE (18:55)
[2018-04-15 19:07] VITALS: BP 129/68
--- NOTE | 2018-04-16 10:59 | XCELERA REPORT ---
[address] [facility] [id number] Lower Extremity Venous Evaluation Procedure: Color flow and duplex imaging bilaterally of the veins of the lower extremities as well as the Common Femoral veins. Right Sided Venous Evaluation Normal vessel filling wall to wall, compression and augmentation as well as Colour flow down to the infrageniculate veins. Left Sided Venous Evaluation Normal vessel filling wall to wall, compression and augmentation as well as Colour flow down to the infrageniculate veins. Interpretation Summary No duplex evidence of DVT or obstruction in the bilateral lower extremities. Name: CRAIG THOMAS Age: 27 yrs Gender: Female : 1990 Patient Status: Emergency Patient Location: ER Study Date: 04/15/2018 05:17 PM Reason For Study: edema Ordering Physician: INDIRA ASHTON Performed By: Maya Butts : INDIRA ASHTON > Nain Cordoba
== END 2018-04-15 19:07 | disposition home or self-care (01) ==
LOC: ER 13:09
DX: G43.909 Migraine, unspecified, not intractable, without status migrainosus (principal); R60.0 Localized edema; M79.604 Pain in right leg; M79.605 Pain in left leg; I10 Essential (primary) hypertension; Z79.899 Other long term (current) drug therapy; F17.200 Nicotine dependence, unspecified, uncomplicated; F12.90 Cannabis use, unspecified, uncomplicated; E11.9 Type 2 diabetes mellitus without complications
CPT/HCPCS: 99284; 93970 ×2; J3490; S0183

== ENCOUNTER 2018-04-28 11:32 | Emergency (ER) | payer SELFPAY ==
[2018-04-28] MEDS ORDERED: ONDANSETRON 4 MG TAB.RAPDIS PO ONE (12:09)
[2018-04-28] MEDS ORDERED: IBUPROFEN 600 MG TABLET PO ONE (12:09)
--- NOTE | 2018-04-28 12:16 | ER Document Report ---
ED General - General Chief Complaint: Chest Pain Stated Complaint: HEADACHE Time Seen by Provider: 04/28/18 11:46 Notes: 27-year-old female to the emergency department mostly complaining of a headache. States that she has a history of migraines. Also has a history of blood pressure. Recently has lost her health insurance. Has not been able to follow- up with her regular doctor. Had a recent bladder infection as well. Patient states that she is going through a lot of stress and she is pretty sure that most of her symptoms are due to stress. Denies any significant chest pain, abdominal pain. Does have some nausea. She was prescribed Fioricet but does not seem to be helping. It is that her blood pressure is high. Was prescribed lisinopril and has been taking it for a long time but it does not seem to be helping anymore either. TRAVEL OUTSIDE OF THE [place] IN LAST 30 DAYS: No - HPI Onset: Last week Onset/Duration: Gradual, Constant Severity: Mild Pain Level: 2 - Related Data Allergies/Adverse Reactions: No Known Drug Allergies Allergy (Verified 04/28/18 11:32) chocolate flavor Adverse Reaction (Verified 04/28/18 11:32) peanut Adverse Reaction (Verified 04/28/18 11:32) Past Medical History - General Information source: Patient - Social History Smoking Status: Former Smoker Chew tobacco use (# tins/day): No Frequency of alcohol use: Social Drug Abuse: Marijuana Family History: Reviewed & Not Pertinent, Arthritis, CAD, DM, Hyperlipidemia, Hypertension, Malignancy, Thyroid Disfunction Patient has suicidal ideation: No Patient has homicidal ideation: No - Past Medical History Cardiac Medical History: Reports: Hx Hypertension Denies: Hx Coronary Artery Disease Pulmonary Medical History: Reports: Hx Bronchitis, Hx Pneumonia Neurological Medical History: Reports: Hx Migraine Endocrine Medical History: Reports: Hx Diabetes Mellitus Type 2. Denies: Hx Hypothyroidism Renal/ Medical History: Reports: Hx Ovarian Cysts - pcos. Denies: Hx Peritoneal Dialysis GI Medical History: Denies: Hx Gastritis, Hx Gastroesophageal Reflux Disease, Hx Irritable Bowel Musculoskeletal Medical History: Denies Hx Fibromyalgia, Denies Hx Muscle Spasm, Denies Hx Muscle Weakness, Reports Hx Musculoskeletal Deformity, Reports Hx Musculoskeletal Trauma Psychiatric Medical History: Reports: Hx Anxiety, Hx Depression Infectious Medical History: Denies: Hx HIV, Hx MRSA Past Surgical History: Reports: Hx Cholecystectomy, Hx Tonsillectomy - Immunizations Immunizations up to date: Yes Hx Diphtheria, Pertussis, Tetanus Vaccination: Yes Review of Systems - Review of Systems Notes: Constitutional: denies: Chills, Diaphoresis, Fever, Malaise, Weakness EENT: denies: Eye discharge, Blurred vision, Tearing, Double vision, Nose congestion, Nose discharge, Throat swelling, Mouth pain Cardiovascular: denies: Palpitations, Heart racing, Orthopnea, Dyspnea, Chest pain. She does complain of hypertension Respiratory: denies: Cough, Hurts to breathe, Wheezing, Shortness of breath Gastrointestinal: denies: Abdominal pain, Diarrhea, Nausea, Vomiting, Black stools, bright red blood in stool Genitourinary: denies: Burning, Dysuria, Discharge, Frequency, Flank pain, Hematuria Musculoskeletal: denies: Joint pain, Joint swelling, Muscle pain, Muscle stiffness, back pain Hematologic/Lymphatic: denies: Anemia, Easy bleeding, Easy bruising, Blood clots Neurological/Psychological: denies: Confusion, Dementia, Depression, Loss of consciousness. Does complain of a headache and anxiety Skin: No lesions, no masses, no skin breakdown, no abscesses Physical Exam - Vital signs Vitals: Temp Pulse Resp BP Pulse Ox 98.0 F 96 20 150/81 H 98 04/28/18 11:44 04/28/18 11:44 04/28/18 11:44 04/28/18 11:44 04/28/18 11:44 Interpretation: Normal - Notes Notes: Tearful - General General appearance: Appears well, Alert - HEENT Head: Normocephalic, Atraumatic Eyes: Normal Pupils: PERRL - Respiratory Respiratory status: No respiratory distress Chest status: Nontender Breath sounds: Normal Chest palpation: Normal - Cardiovascular Rhythm: Regular Heart sounds: Normal auscultation Murmur: No - Abdominal Inspection: Normal Distension: No distension Bowel sounds: Normal Tenderness: Nontender Organomegaly: No organomegaly - Back Back: Normal, Nontender - Extremities General upper extremity: Normal inspection, Nontender, Normal color, Normal ROM, Normal temperature General lower extremity: Normal inspection, Nontender, Normal color, Normal ROM, Normal temperature, Normal weight bearing. No: Sandro's sign - Neurological Neuro grossly intact: Yes Cognition: Normal Orientation: AAOx4 Angel Coma Scale Eye Opening: Spontaneous Angel Coma Scale Verbal: Oriented [place] Coma Scale Motor: Obeys Commands [place] Coma Scale Total: 15 Speech: Normal Motor strength normal: LUE, RUE, LLE, RLE Sensory: Normal - Psychological Associated symptoms: Normal affect, Normal mood, Tearful - Skin Skin Temperature: Warm Skin Moisture: Dry Skin Color: Normal Course - Re-evaluation Re-evalutation: 04/28/18 12:13 I had a long discussion with the patient. She began to tear up when asked about what is stressing her out in her life. Had a rough childhood. Feels disconnected and the community. Has a fianc but they have not been getting along. Has financial troubles. Does not know where else to go. She denies any suicidal ideation or major depression. She does complain of being stressed out and this makes her blood pressure go up which seems to make her headaches worse. We discussed options with regards to blood pressure management. One good option at this time that comes to mind would be using propranolol as preventative measures for migraines, hypertension treatment as well as the mild anxiolytic effect the propranolol has. Patient seems interested in giving that a try. Also I have discussed changing her from lisinopril to losartan. These would be to cost-effective alternatives to what she is currently taking. She knows how to get help. [facility] 04/28/18 13:03 Laboratory 04/28/18 04/28/18 12:14 12:40 POC Glucose 102 Urine Color YELLOW Urine Appearance SLIGHTLY-CLOUDY Urine pH 6.0 Ur Specific [place] 1.026 Urine Protein NEGATIVE Urine Glucose (UA) NEGATIVE Urine Ketones NEGATIVE Urine Blood NEGATIVE Urine Nitrite NEGATIVE Urine Bilirubin NEGATIVE Urine Urobilinogen NEGATIVE Ur Leukocyte Esterase LARGE H Urine WBC (Auto) 6 Urine RBC (Auto) 38 Urine Bacteria (Auto) TRACE Squamous Epi Cells Auto 6 Urine Mucus (Auto) MOD Urine Ascorbic Acid NEGATIVE Urine HCG, Qual NEGATIVE 04/28/18 13:04 Could potentially still have a urinary tract infection with large amount of leukocytes and a few WBCs. Will culture. Will give patient the option of retreating. Will start her on some propranolol and losartan with HCTZ. Patient seems comfortable with this plan. Advised to return for worsening symptoms. - Vital Signs Vital signs: Temp Pulse Resp BP Pulse Ox 98.0 F 96 20 150/81 H 98 04/28/18 11:44 04/28/18 11:44 04/28/18 11:44 04/28/18 11:44 04/28/18 11:44 - Laboratory Laboratory results interpreted by me: 04/28/18 12:40 Ur Leukocyte Esterase LARGE H Discharge - Discharge Clinical Impression: Tension headache, Bladder infection Hypertension Qualifiers: Hypertension type: unspecified Qualified Code(s): I10 - Essential (primary) hypertension Condition: Good Disposition: HOME, SELF-CARE Instructions: Urinary Tract Infection ([facility]), Nitrofurantoin ([facility]), Tension Headache ([facility]), High Blood Pressure, Requiring Treatment ([facility]) Additional Instructions: We are starting you on 2 different new blood pressure medications. Please stop the lisinopril and begin these medications. It also looks like he still have a persistent bladder infection. We are starting you on some antibiotics for that as well. Please follow-up with a counselor to talk about some your stressful life situations. In the event that you were feeling worse and need to be re- seen we are always here for you. Please do not hesitate to return. Prescriptions: Losartan/Hydrochlorothiazide [Losartan-Hctz 50-12.5 mg Tab] 1 each PO QAM 30 Days #30 tablet Nitrofurantoin/Nitrofuran Mac [Macrobid 100 mg Capsule] 1 tab PO BID #20 capsule Propranolol HCl [Inderal 10 mg Tablet] 10 mg PO Q12 30 Days #60 tab Referrals: [facility] [Outside] - Follow up in 3-5 days [facility] [Provider Group] - Follow up as needed
[2018-04-28 12:57] LABS: APPEARANCE,URINE SLIGHTLY-CLOUDY; BILIRUBIN,URINE NEGATIVE (NEGATIVE); COLOR,URINE YELLOW; GLUCOSE, URINE NEGATIVE (NEGATIVE); KETONES,URINE NEGATIVE (NEGATIVE); LEUKOCYTE ESTERASE,URINE LARGE (NEGATIVE); NITRITE,URINE NEGATIVE (NEGATIVE); PROTEIN,URINE NEGATIVE (NEGATIVE); URINE SPECIFIC GRAVITY 1.026; UROBILINOGEN,URINE NEGATIVE mg/dL (<2.0)
[2018-04-28 13:23] VITALS: BP 148/58
--- NOTE | 2018-04-28 19:22 | EKG REPORT ---
SEVERITY:- NORMAL ECG - SINUS RHYTHM : Confirmed by: Tayo Mcrae 28-Apr-2018 19:22:22
== END 2018-04-28 13:22 | disposition home or self-care (01) ==
LOC: ER 11:32
DX: G44.209 Tension-type headache, unspecified, not intractable (principal); I10 Essential (primary) hypertension; G43.909 Migraine, unspecified, not intractable, without status migrainosus; R11.0 Nausea; F43.9 Reaction to severe stress, unspecified; E11.9 Type 2 diabetes mellitus without complications; Z79.899 Other long term (current) drug therapy; Z60.8 Other problems related to social environment; Z63.0 Problems in relationship with spouse or partner; Z59.9 Problem related to housing and economic circumstances, unspecified; Z87.891 Personal history of nicotine dependence
CPT/HCPCS: 93005; 99283; 87086; 82962; 81025; 81001; 93010; S0119

== ENCOUNTER 2018-06-16 10:18 | Emergency (ER) | payer SELFPAY ==
[2018-06-16 10:35] VITALS: BP 149/83
--- NOTE | 2018-06-16 10:47 | ER Document Report ---
HPI - HPI Time Seen by Provider: 06/16/18 10:39 Pain Level: 4 Notes: Patient is a 27-year-old female who presents to the ED complaining of nasal congestion/discharge, dry nonproductive cough, , scratchy throat, body ache 3 days. Patient states that she is still eating and drinking without difficulties. She is still urinating normally having normal bowel movements. Patient states that she has been exposed to diagnosed flu by her boss and other coworkers in the facility are starting to have similar symptoms. Patient has been using some [id number] meds for symptoms. She denies any significant past medical history including cardiopulmonary history and immunocompromised conditions. Patient denies any smoking or IV drug use. Patient requesting work note. Denies any current headache, neck pain, chest pain, palpitations, syncope, shortness of breath, wheeze, dyspnea, abdominal pain, nausea/vomiting/diarrhea, urinary retention, dysuria, hematuria, or rash. - ROS Systems Reviewed and Negative: Yes All other systems reviewed and negative - REPRODUCTIVE Reproductive: DENIES: : Past Medical History - Social History Smoking Status: Never Smoker Family History: Reviewed & Not Pertinent, Arthritis, CAD, DM, Hyperlipidemia, Hypertension, Malignancy, Thyroid Disfunction - Past Medical History Cardiac Medical History: Reports: Hx Hypertension Denies: Hx Coronary Artery Disease Pulmonary Medical History: Reports: Hx Bronchitis, Hx Pneumonia Neurological Medical History: Reports: Hx Migraine Endocrine Medical History: Reports: Hx Diabetes Mellitus Type 2. Denies: Hx Hypothyroidism Renal/ Medical History: Reports: Hx Ovarian Cysts - pcos. Denies: Hx Peritoneal Dialysis GI Medical History: Denies: Hx Gastritis, Hx Gastroesophageal Reflux Disease, Hx Irritable Bowel Musculoskeletal Medical History: Denies Hx Fibromyalgia, Denies Hx Muscle Spasm, Denies Hx Muscle Weakness, Reports Hx Musculoskeletal Deformity, Reports Hx Musculoskeletal Trauma Psychiatric Medical History: Reports: Hx Anxiety, Hx Depression Infectious Medical History: Denies: Hx HIV, Hx MRSA Past Surgical History: Reports: Hx Cholecystectomy, Hx Tonsillectomy - Immunizations Immunizations up to date: Yes Hx Diphtheria, Pertussis, Tetanus Vaccination: Yes Vertical Provider Document - CONSTITUTIONAL Agree With Documented VS: Yes Notes: PHYSICAL EXAMINATION: GENERAL: Well-appearing, well-nourished and in no acute distress. A&Ox4. Answers questions appropriately. Moves comfortably w/o notable distress HEAD: Atraumatic, normocephalic. EYES: Pupils equal round and reactive to light, extraocular movements intact, sclera anicteric, conjunctiva are normal. ENT: EAC clear b/l. TM's intact b/l without erythema, fluid, or perforation. Nares patent and with clear discharge. oropharynx no erythema without exudates. No tonsilar hypertrophy without erythema or exudate. No palatine shift. Uvula midline. No tongue protrusion. No drooling, hoarseness, or airway compromise. Moist mucous membranes. No sinus tenderness. NECK: Normal range of motion, supple without lymphadenopathy. No rigidity/meningismus. LUNGS: Breath sounds clear to auscultation bilaterally and equal. No wheezes rales or rhonchi. No retractions HEART: Regular rate and rhythm without murmurs, rubs, gallops. ABDOMEN: Soft, nontender, nondistended abdomen. No guarding, no rebound. Normal bowel sounds present. No CVA tenderness bilaterally. NEUROLOGICAL: Normal speech, normal gait. PSYCH: Normal mood, normal affect. SKIN: Warm, Dry, normal turgor, no rashes or lesions noted. - INFECTION CONTROL TRAVEL OUTSIDE OF THE [place] IN LAST 30 DAYS: No Course - Re-evaluation Re-evalutation: 06/16/18 10:45 Patient is an afebrile, well-hydrated, 27-year-old female who presents to the ED with acute URI, suspect viral vs influenza. Vitals are acceptable. PE is otherwise unremarkable. No labs or imaging warranted at this time based on H&P. Patient has no significant cardiopulmonary or immunocompromised medical conditions. Patient's lungs are clear to auscultation bilaterally without tachycardia, hypoxia, or tachypnea. Patient is tolerating p.o. without any difficulties. Patient beyond treatment window with Tamiflu. Low suspicion for any meningitis, sepsis, peritonsillar/pharyngeal abscess, respiratory compromise, severe dehydration, or other emergent systemic condition at this time. Patient is aware this condition can change from initial presentation and she needs to monitor symptoms closely. Conservative measures otherwise for symptoms. Recheck with your PCM in 3-5 days. Return to the ED with any worsening/concerning symptoms otherwise as reviewed in discharge. Patient is in agreement. - Vital Signs Vital signs: Temp Pulse Resp BP Pulse Ox 97.6 F 70 18 149/83 H 100 06/16/18 10:33 06/16/18 10:33 06/16/18 10:33 06/16/18 10:33 06/16/18 10:33 Discharge - Discharge Clinical Impression: Acute URI Condition: Stable Disposition: HOME, SELF-CARE Additional Instructions: Maintain adequate fluid intake Take meds as directed tylenol/ibuprofen as needed over the counter cold medication as needed for symptoms Humidified air may help Wash your hands regularly Wear a mask when coughing F/u: with your PCM in 3-5 days for a recheck Return to the ED with any fever, worsening pain, chest pain, palpitations, syncope, worsening LEROY, neck pain/stiffness, shortness of breath, wheezing, drooling, trouble swallowing/breathing, abdominal pain, n/v/d, rash, or worsening/concerning symptoms otherwise. Forms: Elevated Blood Pressure, Return to Work Referrals: [facility] [Provider Group] - Follow up as needed
== END 2018-06-16 10:50 | disposition home or self-care (01) ==
LOC: ER 10:18
DX: J06.9 Acute upper respiratory infection, unspecified (principal); R09.89 Other specified symptoms and signs involving the circulatory and respiratory systems; R05 Cough; R52 Pain, unspecified; I10 Essential (primary) hypertension; E11.9 Type 2 diabetes mellitus without complications; Z20.828 Contact with and (suspected) exposure to other viral communicable diseases; Z87.01 Personal history of pneumonia (recurrent)
CPT/HCPCS: 99283

== ENCOUNTER 2018-07-17 15:01 | Emergency (ER) | payer SELFPAY ==
[2018-07-17] MEDS ORDERED: KETOROLAC TROMETHAMINE 60 MG/2 ML SDV IM ONE (15:39)
--- NOTE | 2018-07-17 15:41 | ER Document Report ---
ED Medical Screen (RME) - General Chief Complaint: Headache Stated Complaint: ABDOMINAL PAIN, HEADACHE,EYE SWELLING Time Seen by Provider: 07/17/18 15:35 Primary Care Provider: HIRO CUMMINGS MD [Primary Care Provider] - Follow up as needed Mode of Arrival: Ambulatory Information source: Patient Notes: Patient is a 27-year-old female who presents to the emergency department with multiple vague complaints today. Patient reports migraine that has been going on for approximately 3 months. Patient also reports intermittent abdominal pain over the past 4-6 months. Patient also reports intermittent chest pains that have been ongoing for the last 6 months. Patient also reports swelling to her eyes from the recent increase in pollen in [place]. Exam: Patient alert, oriented with no acute distress noted. Lung sounds clear and equal bilaterally. I have greeted and performed a rapid initial assessment of this patient. A comprehensive ED assessment and evaluation of the patient, analysis of test results and completion of the medical decision making process will be conducted by additional ED providers. Dictation of this chart was performed using voice recognition software; therefore, there may be some unintended grammatical errors. TRAVEL OUTSIDE OF THE [place] IN LAST 30 DAYS: No - Related Data Allergies/Adverse Reactions: No Known Drug Allergies Allergy (Verified 07/17/18 15:02) chocolate flavor Adverse Reaction (Verified 07/17/18 15:02) peanut Adverse Reaction (Verified 07/17/18 15:02) Past Medical History - Past Medical History Cardiac Medical History: Reports: Hx Hypertension Denies: Hx Coronary Artery Disease Pulmonary Medical History: Reports: Hx Bronchitis, Hx Pneumonia Neurological Medical History: Reports: Hx Migraine Endocrine Medical History: Reports: Hx Diabetes Mellitus Type 2. Denies: Hx Hypothyroidism Renal/ Medical History: Reports: Hx Ovarian Cysts - pcos. Denies: Hx Patti toneal Dialysis GI Medical History: Denies: Hx Gastritis, Hx Gastroesophageal Reflux Disease, Hx Irritable Bowel Musculoskeltal Medical History: Denies Hx Fibromyalgia, Denies Hx Muscle Spasm, Denies Hx Muscle Weakness, Reports Hx Musculoskeletal Deformity, Reports Hx Musculoskeletal Trauma Psychiatric Medical History: Reports: Hx Anxiety, Hx Depression Infectious Medical History: Denies: Hx HIV, Hx MRSA Past Surgical History: Reports: Hx Cholecystectomy, Hx Tonsillectomy - Immunizations Immunizations up to date: Yes Hx Diphtheria, Pertussis, Tetanus Vaccination: Yes Physical Exam - Vital signs Vitals: Temp Pulse Resp BP Pulse Ox 98.2 F 70 15 150/82 H 98 07/17/18 15:23 07/17/18 15:23 07/17/18 15:23 07/17/18 15:23 07/17/18 15:23 Course - Vital Signs Vital signs: Temp Pulse Resp BP Pulse Ox 98.2 F 70 15 150/82 H 98 07/17/18 15:23 07/17/18 15:23 07/17/18 15:23 07/17/18 15:23 07/17/18 15:23 Doctor's Discharge - Discharge Referrals: HIRO CUMMINGS MD [Primary Care Provider] - Follow up as needed
[2018-07-17 16:05] LABS: ABSOLUTE BASOPHILS # (AUTO) 0.1 10^3/uL (0.0-0.2); ABSOLUTE EOSINOPHILS # (AUTO) 0.1 10^3/uL (0.0-0.6); ABSOLUTE LYMPHOCYTES (AUTO) 2.5 10^3/uL (0.5-4.7); ABSOLUTE MONOCYTES (AUTO) 0.8 10^3/uL (0.1-1.4); ABSOLUTE NEUT (AUTO) 6.6 10^3/uL (1.7-8.2); BASOPHILS % (AUTO) 0.5 % (0-2); EOSINOPHILS % (AUTO) 0.9 % (0-6); HEMATOCRIT 35.8 % (36.0-47.0); HEMOGLOBIN 12.2 g/dL (12.0-15.5); LYMPHOCYTES % (AUTO) 25.2 % (13-45); MEAN CORPUSCULAR HEMOGLOBIN 25.8 pg (27.0-33.4); MEAN CORPUSCULAR HGB CONC 34.2 g/dL (32.0-36.0); MEAN CORPUSCULAR VOLUME 75 fl (80-97); MONOCYTES % (AUTO) 7.7 % (3-13); PLATELET COUNT 312 10^3/uL (150-450); RED BLOOD COUNT 4.75 10^6/uL (3.72-5.28); RED CELL DISTRIBUTION WIDTH 15.4 % (11.5-14.0); SEGMENTED NEUTROPHILS % (AUTO) 65.7 % (42-78); TOTAL CELLS COUNTED % (AUTO) 100 %
[2018-07-17 16:20] LABS: APPEARANCE,URINE CLOUDY; BILIRUBIN,URINE NEGATIVE (NEGATIVE); COLOR,URINE YELLOW; GLUCOSE, URINE NEGATIVE (NEGATIVE); KETONES,URINE NEGATIVE (NEGATIVE); LEUKOCYTE ESTERASE,URINE MODERATE (NEGATIVE); NITRITE,URINE NEGATIVE (NEGATIVE); PROTEIN,URINE NEGATIVE (NEGATIVE); URINE SPECIFIC GRAVITY 1.017; UROBILINOGEN,URINE NEGATIVE mg/dL (<2.0)
[2018-07-17 16:24] LABS: ALANINE AMINOTRANSFERASE 28 U/L (9-52); ALBUMIN 3.9 g/dL (3.5-5.0); ALKALINE PHOSPHATASE 94 U/L (38-126); ANION GAP 9 (5-19); ASPARTATE AMINO TRANSFERASE 17 U/L (14-36); BILIRUBIN,DIRECT 0.2 mg/dL (0.0-0.4); BILIRUBIN,TOTAL 0.5 mg/dL (0.2-1.3); BLOOD UREA NITROGEN 11 mg/dL (7-20); CALCIUM 9.6 mg/dL (8.4-10.2); CARBON DIOXIDE 24 mmol/L (22-30); CHLORIDE 107 mmol/L (98-107); GLUCOSE 81 mg/dL (75-110); SODIUM 139.7 mmol/L (137-145); TOTAL PROTEIN 7.5 g/dL (6.3-8.2)
[2018-07-17] MEDS ORDERED: MAG HYDROX/AL HYDROX/SIMETH SUSP 30 ML UDCUP PO ONE (16:28)
[2018-07-17] MEDS ORDERED: SUCRALFATE 1 GM TABLET PO ONE (16:28)
[2018-07-17] MEDS ORDERED: FAMOTIDINE 20 MG TABLET PO ONE (16:28)
--- NOTE | 2018-07-17 16:34 | ER Document Report ---
ED General - General Chief Complaint: Headache Stated Complaint: ABDOMINAL PAIN, HEADACHE,EYE SWELLING Time Seen by Provider: 07/17/18 15:35 Primary Care Provider: HIRO CUMMINGS MD [NO LOCAL MD] - Follow up as needed Mode of Arrival: Ambulatory Information source: Patient TRAVEL OUTSIDE OF THE [place] IN LAST 30 DAYS: No - HPI Patient complains to provider of: Frequent headaches and sinus issues, stomach pains ongoing, seasonal allerg Onset: Other - Chronic Onset/Duration: Constant Quality of pain: Burning Severity: Moderate Pain Level: 3 Associated symptoms: denies: Chills, Fever Exacerbated by: Denies Relieved by: Denies Similar symptoms previously: No Recently seen / treated by doctor: No Notes: 27-year-old female coming in today with complaints of frequent and chronic migraines with multiple visits to the ER, stomach pains which she has been seen here for as well. Diagnosed as having ulcers. Trying to manage this with diet and life decisions. Also having some sinus pressure and allergy symptoms. - Related Data Allergies/Adverse Reactions: No Known Drug Allergies Allergy (Verified 07/17/18 15:02) chocolate flavor Adverse Reaction (Verified 07/17/18 15:02) peanut Adverse Reaction (Verified 07/17/18 15:02) Past Medical History - General Information source: Patient - Social History Smoking Status: Current Some Day Smoker Chew tobacco use (# tins/day): No Frequency of alcohol use: Social Drug Abuse: Marijuana Family History: Reviewed & Not Pertinent, Arthritis, CAD, DM, Hyperlipidemia, Hypertension, Malignancy, Thyroid Disfunction Patient has suicidal ideation: No Patient has homicidal ideation: No - Past Medical History Cardiac Medical History: Reports: Hx Hypertension Denies: Hx Coronary Artery Disease Pulmonary Medical History: Reports: Hx Bronchitis, Hx Pneumonia Neurological Medical History: Reports: Hx Migraine Endocrine Medical History: Reports: Hx Diabetes Mellitus Type 2. Denies: Hx Hypothyroidism Renal/ Medical History: Reports: Hx Ovarian Cysts - pcos. Denies: Hx Peritoneal Dialysis GI Medical History: Denies: Hx Gastritis, Hx Gastroesophageal Reflux Disease, Hx Irritable Bowel Musculoskeletal Medical History: Denies Hx Fibromyalgia, Denies Hx Muscle Spasm, Denies Hx Muscle Weakness, Reports Hx Musculoskeletal Deformity, Reports Hx Musculoskeletal Trauma Psychiatric Medical History: Reports: Hx Anxiety, Hx Depression Infectious Medical History: Denies: Hx HIV, Hx MRSA Past Surgical History: Reports: Hx Cholecystectomy, Hx Tonsillectomy - Immunizations Immunizations up to date: Yes Hx Diphtheria, Pertussis, Tetanus Vaccination: Yes Review of Systems - Review of Systems Notes: Constitutional: No fevers. No chills. EENT: No eye redness. No eye pain. No ear pain. No sore throat. Cardiovascular: + Intermittent chest pain. No palpitations. Respiratory: No cough. No shortness of breath. No respiratory distress. Gastrointestinal: +abdominal pain. No nausea, vomiting, or diarrhea. Genitourinary: Atraumatic. No lesions. No pain. No discharge. Musculoskeletal: Atraumatic. No swelling. No deformities. Skin: No rash or lesions. Lymphatic: No swollen lymph nodes. Neurologic: +headache. No syncope. Psychiatric: No suicidal or homicidal ideation. Physical Exam - Vital signs Vitals: Temp Pulse Resp BP Pulse Ox 98.2 F 70 15 150/82 H 98 07/17/18 15:23 07/17/18 15:23 07/17/18 15:23 07/17/18 15:23 07/17/18 15:23 - Notes Notes: General: Well-developed, well-nourished. In no acute distress. Non-toxic appearing. Cardiac: Well-perfused. Regular rate and rhythm. No murmurs, rubs, or gallops. Pulmonary: No respiratory distress. No cyanosis. Bilateral lung murray are clear to auscultation. Abdominal: Non-distended. Non-rigid. Bowels sounds are present in all four quadrants. No guarding or reboun Diffuse abdominal tenderness to palpation. No point tenderness. HEENT: Head is atraumatic. Conjunctivae not reddened. No tearing. PERRL. EOMI. Orbits atraumatic. No periorbital swelling or erythema. Oropharynx is without erythema, swelling, or exudates. Frontal sinuses are mildly tender Neck: Supple. No adenopathy. No meningismus. Dermatologic: Warm with good turgor. No rash. Atraumatic. Chest: Atraumatic. No chest wall tenderness to palpation. Musculoskeletal: Moves all extremities well. No range of motion deficits. no muscular or joint tenderness. No paraspinal muscle tenderness. no midline spinal tenderness or step-off. Genitourinary: Examination deferred Neurologic: No gross neurologic deficits. Psychiatric: Normal mood. Course - Re-evaluation Re-evalutation: 07/17/18 16:32 All of the symptoms sound like they have been ongoing for quite some time. Patient probably has GERD and is not managing it with any kind of medication. Headaches seem related to the sinuses and allergies. UA shows possible mild UTI. Will get the remainder of the tests which I suspect will be normal. Discussed the need for the patient to have a primary care provider either at [facility] or at [facility]. 07/17/18 17:49 Labs are all back. Troponin negative. EKG looks good. UA looks like mild UTI will treat. But the patient on some Lluvia and Flonase for sinuses. That naproxen would be fine for her headaches as I think this is secondary to sinus pressure and pain. - Vital Signs Vital signs: Temp Pulse Resp BP Pulse Ox 98.2 F 70 15 150/82 H 98 07/17/18 15:23 07/17/18 15:23 07/17/18 15:23 07/17/18 15:23 07/17/18 15:23 - Laboratory Result Diagrams: 07/17/18 15:50 07/17/18 15:50 Laboratory results interpreted by me: 07/17/18 07/17/18 15:50 15:50 Hct 35.8 L MCV 75 L MCH 25.8 L RDW 15.4 H Ur Leukocyte Esterase MODERATE H - EKG Interpretation by Al EKG shows normal: Sinus rhythm Rate: Normal Rhythm: NSR Discharge - Discharge Clinical Impression: Sinus headache, Seasonal allergies, Atypical chest pain Abdominal pain Qualifiers: Abdominal location: generalized Qualified Code(s): R10.84 - Generalized abdominal pain Condition: Good Disposition: HOME, SELF-CARE Instructions: Abdominal Pain ([facility]), Headache ([facility]) Additional Instructions: I am some medications to help with your headaches and your allergy symptoms. Prescribing antibiotics for possible UTI. Prescribing some medication to take in case you do have abdominal ulcers. I need to follow-up at 1 of 2 medical clinics as an outpatient to have all this further managed. Prescriptions: Fexofenadine HCl [Lluvia] 180 mg PO DAILY #30 tablet Fluticasone Propionate [Flonase Nasal [address] 50 Mcg/Lane 16 gm] 2 sprays NASL Q12 #1 inhaler Naproxen 500 mg PO BID 5 Days #14 tablet Omeprazole Magnesium [Prilosec Otc] 20 mg PO DAILY #30 tablet. Sulfamethoxazole/Trimethoprim [Bactrim Ds Tablet] 1 each PO BID #10 tablet Referrals: HIRO CUMMINGS MD [NO LOCAL MD] - Follow up as needed [facility] [Provider Group] - Follow up as needed [facility] [Provider Group] - Follow up as needed
--- NOTE | 2018-07-17 17:16 | RADIOLOGY REPORT (SQ) ---
EXAM DESCRIPTION: ABDOMEN 2 VIEWS COMPLETED DATE/TIME: 07/17/2018 5:07 pm REASON FOR STUDY: abd pain COMPARISON: 08/28/2010 NUMBER OF VIEWS: Two views. TECHNIQUE: Supine and erect/decubitus radiographic images of the abdomen acquired. LIMITATIONS: None. FINDINGS: FREE AIR: None. No abnormal gas collections. LUNG BASES: Clear. BOWEL GAS PATTERN: Nonobstructive pattern. No dilated loops or air fluid levels. CALCIFICATIONS: No suspicious calcifications. SOFT TISSUES: No gross mass or suggestion of organomegaly. HARDWARE: None in the abdomen. BONES: No acute fracture. No worrisome bone lesions. OTHER: No other significant finding. IMPRESSION: NO RADIOGRAPHIC EVIDENCE FOR ACUTE ABDOMINAL DISEASE. TECHNICAL DOCUMENTATION: JOB ID: [id number] [employer]- All Rights Reserved Reading location - IP/workstation name: [email or web address]
[2018-07-17 18:22] VITALS: BP 135/73
--- NOTE | 2018-07-17 18:34 | EKG REPORT ---
SEVERITY:- NORMAL ECG - SINUS RHYTHM : Confirmed by: Leo Soriano MD 17-Jul-2018 18:33:24
== END 2018-07-17 18:22 | disposition home or self-care (01) ==
LOC: ER 15:01
DX: J30.2 Other seasonal allergic rhinitis (principal); R51 Headache; R07.89 Other chest pain; R10.84 Generalized abdominal pain; R10.817 Generalized abdominal tenderness; I10 Essential (primary) hypertension; E11.9 Type 2 diabetes mellitus without complications; F17.200 Nicotine dependence, unspecified, uncomplicated; F12.10 Cannabis abuse, uncomplicated; Z90.49 Acquired absence of other specified parts of digestive tract
CPT/HCPCS: 93005; 94640; 99283; 96372; 36415; 85025; 80053; 81001; 84484; 74019; 93010; J1885

== ENCOUNTER 2018-08-27 16:55 | Emergency (ER) | payer OTHER ==
--- NOTE | 2018-08-27 17:30 | ER Document Report ---
ED Fall - General Chief Complaint: Fall Injury Stated Complaint: FALL Time Seen by Provider: 08/27/18 17:10 Primary Care Provider: [facility] [Provider Group] - Follow up as needed [facility] [Provider Group] - Follow up as needed KARENA KOEHLER DPM [ACTIVE STAFF] - Follow up as needed Mode of Arrival: Wheelchair Information source: Patient Notes: 27-year-old female presents to ED for complaint of falling at work today. She states about 210 this afternoon she was at work when she slipped on some water that was on the floor. She states she fell forward landing on both hands then her left wrist gave out from under her and she fell on her left side. She states the main pain is on her left wrist hand and ankle. Denies pain to any other part of her body. Patient is a morbidly obese 156 kg 5 foot 3 female. TRAVEL OUTSIDE OF THE [place] IN LAST 30 DAYS: No - HPI Occurred: This afternoon Where: Work Context: Fell from standing Associated symptoms: None Location of injury/pain: Ankle, Hand, Wrist Quality of pain: Achy, Sharp Severity: Moderate Pain Level: 3 - Related data Allergies/Adverse Reactions: No Known Drug Allergies Allergy (Verified 08/27/18 16:56) chocolate flavor Adverse Reaction (Verified 08/27/18 16:56) peanut Adverse Reaction (Verified 08/27/18 16:56) Past Medical History - General Information source: Patient - Social History Smoking Status: Current Some Day Smoker - 2 cigarettes a month Cigarette use (# per day): Yes Smoking Education Provided: Yes - Minutes Frequency of alcohol use: Social Drug Abuse: Marijuana Occupation: [employer] Family History: Reviewed & Not Pertinent, Arthritis, CAD, DM, Hyperlipidemia, Hypertension, Malignancy, Thyroid Disfunction Patient has suicidal ideation: No Patient has homicidal ideation: No - Past Medical History Cardiac Medical History: Reports: Hx Hypertension Pulmonary Medical History: Reports: Hx Bronchitis, Hx Pneumonia EENT Medical History: Reports: None Neurological Medical History: Reports: Hx Migraine Endocrine Medical History: Reports: Hx Diabetes Mellitus Type 2 Renal/ Medical History: Reports: Hx Ovarian Cysts - pcos Malignancy Medical History: Reports: None GI Medical History: Reports: None Musculoskeletal Medical History: Reports Hx Musculoskeletal Deformity, Reports Hx Musculoskeletal Trauma Skin Medical History: Reports None Psychiatric Medical History: Reports: Hx Anxiety, Hx Depression Traumatic Medical History: Reports: None Infectious Medical History: Reports: None Past Surgical History: Reports: Hx Cholecystectomy, Hx Tonsillectomy - Immunizations Immunizations up to date: Yes Hx Diphtheria, Pertussis, Tetanus Vaccination: Yes Review of Systems - Review of Systems Constitutional: No symptoms reported EENT: No symptoms reported Cardiovascular: No symptoms reported Respiratory: No symptoms reported Gastrointestinal: No symptoms reported Genitourinary: No symptoms reported Female Genitourinary: No symptoms reported Musculoskeletal: Ankle swelling, Other - Left wrist and hand Skin: No symptoms reported Hematologic/Lymphatic: No symptoms reported Neurological/Psychological: No symptoms reported -: Yes All other systems reviewed and negative Physical Exam - Vital signs Vitals: Temp Pulse Resp BP Pulse Ox 98.1 F 83 18 139/81 H 99 08/27/18 17:13 08/27/18 17:13 08/27/18 17:13 08/27/18 17:13 08/27/18 17:13 Interpretation: Normal - General General appearance: Appears well, Alert - HEENT Head: Normocephalic, Atraumatic Eyes: Normal Pupils: PERRL - Respiratory Respiratory status: No respiratory distress Chest status: Nontender Breath sounds: Normal Chest palpation: Normal - Cardiovascular Rhythm: Regular Heart sounds: Normal auscultation Murmur: No - Abdominal Inspection: Normal Distension: No distension Bowel sounds: Normal Tenderness: Nontender Organomegaly: No organomegaly - Back Back: Normal, Nontender - Extremities General upper extremity: Normal inspection, Normal color, Normal temperature General lower extremity: Normal inspection, Normal color, Normal ROM, Normal temperature, Normal weight bearing. No: Sandro's sign Wrist: Tender, Limited ROM Hand: Tender, No evidence of human bite, No evidence of FB Ankle: Tender, Edema. No: Deformity, Ecchymosis, Instability, Laceration, Limited ROM, Positive Long's test, Unable to bear weight - Neurological Neuro grossly intact: Yes Cognition: Normal Orientation: AAOx4 Erie Coma Scale Eye Opening: Spontaneous [place] Coma Scale Verbal: Oriented [place] Coma Scale Motor: Obeys Commands Angel Coma Scale Total: 15 Speech: Normal Motor strength normal: LUE, RUE, LLE, RLE Sensory: Normal - Psychological Associated symptoms: Normal affect, Normal mood - Skin Skin Temperature: Warm Skin Moisture: Dry Skin Color: Normal Course - Re-evaluation Re-evalutation: 08/27/18 20:39 X-rays were discussed with patient. No fractures noted there were some heel spurs. Cock-up splint applied to the wrist. Patient instructed to follow-up with primary doctor and with orthopedics. Patient was given instruction on elevation ice and ibuprofen. Patient verbalized understanding agreement treatment plan and patient was discharged home. - Vital Signs Vital signs: Temp Pulse Resp BP Pulse Ox 98.4 F 88 20 129/81 H 99 08/27/18 18:14 08/27/18 18:14 08/27/18 18:14 08/27/18 18:14 08/27/18 18:14 - Diagnostic Test Radiology reviewed: Image reviewed, Reports reviewed Discharge - Discharge Clinical Impression: Fall Qualifiers: Encounter type: initial encounter Qualified Code(s): W19.XXXA - Unspecified fall, initial encounter Wrist sprain Qualifiers: Encounter type: initial encounter Laterality: left Qualified Code(s): S63.502A - Unspecified sprain of left wrist, initial encounter Heel spur Qualifiers: Laterality: left Qualified Code(s): M77.32 - Calcaneal spur, left foot Disposition: HOME, SELF-CARE Instructions: Family Physicians / Practices, Plantar Fasciitis or Heel Spur ([facility]) Additional Instructions: SPRAIN: Your injury is a sprain. A sprain results from stretching or tearing of the ligaments, usually from a twisting injury. The ligaments will require time and protection in order to heal properly. Many sprains are quite disabling and should be taken seriously. The usual initial treatment of sprains is cold packs, elevation, and rest of the injured area. Your physician has assessed the seriousness of your ligament injury, and has outlined a treatment plan. Understand that this treatment may change, depending on how you progress. If a re-examination was recommended, it is important that you follow up as instructed. Call the doctor any time if there is severe pain, numbness, or loss of function in the injured area. KEVIN WRAP: A compression dressing (kevin wrap) has been placed. This helps hold the area still. It limits swelling and internal bleeding. The wrap should be comfortably snug -- not tight. You should feel a sense of pressure, but not severe pain under the wrap. Unless the physician tells you otherwise, you can adjust the wrap for comfort. If the wrap causes symptoms suggesting it's too tight -- uncomfortable pressure, swelling or discoloration beyond the wrap, numbness, or severe pain -- you must loosen the wrap. If these symptoms don't resolve promptly, return for re-evaluation. SPLINT PRECAUTIONS: A splint has been placed. This will protect the area while healing begins. Your problem does NOT normally require a cast. It MUST, however, be held still! Keep the splint on ALL THE TIME until instructed to remove it by the doctor. As you begin to use the area, be careful. You shouldn't do anything which causes discomfort -- you may disturb the injury even with the splint in place. After the initial period of rest and elevation, if splint does not prevent pain when you move, come back. You may require placement of a different splint, or a cast. If there is unexpected severe pain, or numbness, discoloration, or swelling beyond the splint, you should return at once. If you feel that the splint has broken or become loose, come back. ICE & ELEVATION: Apply ice packs frequently against the painful area. Many different schedules are recommended, such as "20 minutes on, 20 minutes off" or "one hour ice, two hours rest." If you need to work, you may need to go longer between ice treatments. You should plan to have the area ice packed AT LEAST one-fourth of the time. The ice should be applied over the wrap, tape, or splint, or over a layer of cloth -- not directly against the skin. Some ice bags have a built-in cloth and can be put directly on the skin. Your injured part should be elevated as much as possible over the next 48 hours. Try to keep the injury above the level of the heart. Avoid use of the injured area. Elevation and rest will decrease the swelling. USE OF EAHP-MDY-LFISHEM IBUPROFEN: Ibuprofen (Advil, Nuprin, Medipren, Motrin IB) is a medication for fever and pain control. In addition, it has anti- inflammatory effects which may be beneficial, especially in the treatment of injuries. It's best to take ibuprofen with food. Persons with ulcer disease or allergy to aspirin should notify their physician of this before taking ibuprofen. Ibuprofen can be given every four to six hours, for a total of four doses daily. Age Pain or fever dose Antiinflammatory dose 6-8 yr 200 mg (1 tab) 200 mg (1 tab) 9-11 yr 200 mg (1 tab) 200-400 mg (1-2 tab) 11-14 yr 200-400 mg (1-2 tab) 400 mg (2 tab) 15-adult 400 mg (2 tab) 600 mg (3 tab) FOLLOW-UP CARE: If you have been referred to a physician for follow-up care, call the physicians office for an appointment as you were instructed or within the next two days. If you experience worsening or a significant change in your symptoms, notify the physician immediately or return to the Emergency Department at any time for re-evaluation. Forms: Elevated Blood Pressure, Special Work Note, Smoking Cessation Education Referrals: [facility] [Provider Group] - Follow up as needed KARENA KOEHLER DPM [ACTIVE STAFF] - Follow up as needed [facility] [Provider Group] - Follow up as needed
--- NOTE | 2018-08-27 17:44 | RADIOLOGY REPORT (SQ) ---
EXAM DESCRIPTION: WRIST LEFT 3 VIEWS COMPLETED DATE/TIME: 08/27/2018 5:32 pm REASON FOR STUDY: fall at work COMPARISON: None. NUMBER OF VIEWS: Three views. TECHNIQUE: AP, lateral, and oblique radiographic images acquired of the left wrist. LIMITATIONS: None. FINDINGS: MINERALIZATION: Normal. BONES: No acute fracture or dislocation. No worrisome bone lesions. Normal alignment. SOFT TISSUES: No soft tissue swelling. No foreign body. OTHER: No other significant finding. IMPRESSION: NEGATIVE STUDY OF THE LEFT WRIST. NO RADIOGRAPHIC EVIDENCE OF ACUTE INJURY. TECHNICAL DOCUMENTATION: JOB ID: [id number] [email or web address]- All Rights Reserved Reading location - IP/workstation name: [email or web address]
--- NOTE | 2018-08-27 17:44 | RADIOLOGY REPORT (SQ) ---
EXAM DESCRIPTION: HAND LEFT 3 VIEWS COMPLETED DATE/TIME: 08/27/2018 5:32 pm REASON FOR STUDY: fall at work COMPARISON: None. EXAM PARAMETERS: NUMBER OF VIEWS: Three views. TECHNIQUE: AP, lateral and oblique radiographic images acquired of the left hand. LIMITATIONS: None. FINDINGS: MINERALIZATION: Normal. BONES: No acute fracture or dislocation. No worrisome bone lesions. JOINTS: No effusions. SOFT TISSUES: No soft tissue swelling. No foreign body. OTHER: No other significant finding. IMPRESSION: NEGATIVE STUDY OF THE LEFT HAND. NO RADIOGRAPHIC EVIDENCE OF ACUTE INJURY. TECHNICAL DOCUMENTATION: JOB ID: [id number] [email or web address]- All Rights Reserved Reading location - IP/workstation name: [email or web address]
--- NOTE | 2018-08-27 17:45 | RADIOLOGY REPORT (SQ) ---
EXAM DESCRIPTION: ANKLE LEFT COMPLETE COMPLETED DATE/TIME: 08/27/2018 5:32 pm REASON FOR STUDY: fall at work pain COMPARISON: None. NUMBER OF VIEWS: Three views. TECHNIQUE: AP, lateral, and oblique radiographic images acquired of the left ankle. LIMITATIONS: None. FINDINGS: MINERALIZATION: Normal. BONES: No fracture. Plantar and dorsal calcaneal spurs. JOINTS: No effusions. SOFT TISSUES: No soft tissue swelling. No foreign body. OTHER: No other significant finding. IMPRESSION: Calcaneal spurs. No acute osseous abnormality. TECHNICAL DOCUMENTATION: JOB ID: [id number] [email or web address]- All Rights Reserved Reading location - IP/workstation name: [email or web address]
[2018-08-27 18:23] VITALS: BP 129/81
== END 2018-08-27 18:30 | disposition home or self-care (01) ==
LOC: ER 16:55
DX: S63.502A Unspecified sprain of left wrist, initial encounter (principal); M25.532 Pain in left wrist; M79.642 Pain in left hand; M25.572 Pain in left ankle and joints of left foot; W01.0XXA Fall on same level from slipping, tripping and stumbling without subsequent striking against object, initial encounter; Y99.0 Civilian activity done for income or pay; E66.01 Morbid (severe) obesity due to excess calories; M77.32 Calcaneal spur, left foot; M25.473 Effusion, unspecified ankle; I10 Essential (primary) hypertension; E11.9 Type 2 diabetes mellitus without complications; F17.210 Nicotine dependence, cigarettes, uncomplicated; Z71.6 Tobacco abuse counseling
CPT/HCPCS: 99283; 73610; 73130; 73110; L3908

== ENCOUNTER 2018-09-02 14:09 | Emergency (ER) | payer OTHER ==
[2018-09-02 14:20] VITALS: BP 134/95
--- NOTE | 2018-09-02 15:46 | RADIOLOGY REPORT (SQ) ---
EXAM DESCRIPTION: ANKLE LEFT COMPLETE COMPLETED DATE/TIME: 09/02/2018 3:36 pm REASON FOR STUDY: fall COMPARISON: None. NUMBER OF VIEWS: Three views. TECHNIQUE: AP, lateral, and oblique radiographic images acquired of the left ankle. LIMITATIONS: None. FINDINGS: MINERALIZATION: Normal. BONES: No acute fracture or dislocation. No worrisome bone lesions. JOINTS: No effusions. SOFT TISSUES: No soft tissue swelling. No foreign body. OTHER: There are prominent calcaneal spurs. IMPRESSION: No acute findings. Prominent calcaneal spurs insertion site of the Achilles tendon and plantar aponeurosis. TECHNICAL DOCUMENTATION: JOB ID: [id number] [employer]- All Rights Reserved Reading location - IP/workstation name: [email or web address]
[2018-09-02] MEDS ORDERED: IBUPROFEN 800 MG TABLET PO ONE (16:18)
--- NOTE | 2018-09-02 16:21 | ER Document Report ---
HPI - HPI Patient complains to provider of: Left ankle pain Time Seen by Provider: 09/02/18 16:07 Onset: Last week Onset/Duration: Persistent Quality of pain: Achy Pain Level: 3 Context: Patient states she slipped in water at work last week injuring her ankle. Patient states since then her ankle has given out on her causing her to fall an additional 3 times. Patient complains of persistent left lateral ankle tenderness. Associated Symptoms: Other - Left ankle pain Exacerbated by: Standing, Movement, Walking Relieved by: Denies Similar symptoms previously: Yes Recently seen / treated by doctor: Yes - ROS ROS below otherwise negative: Yes Systems Reviewed and Negative: Yes All other systems reviewed and negative - CONSTITUTIONAL Constitutional: DENIES: Fever - NEURO Neurology: DENIES: Weakness - GASTROINTESTINAL Gastrointestinal: DENIES: Nausea - REPRODUCTIVE Reproductive: DENIES: : - MUSCULOSKELETAL Musculoskeletal: REPORTS: Extremity pain - L ankle - DERM Skin Color: Normal Skin Problems: None Past Medical History - General Information source: Patient - Social History Smoking Status: Current Every Day Smoker Chew tobacco use (# tins/day): No Smoking Education Provided: Yes Frequency of alcohol use: Occasional Drug Abuse: None 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 Denies: Hx Peritoneal Dialysis Musculoskeletal Medical History: Reports Hx Musculoskeletal Deformity, Reports Hx Musculoskeletal Trauma Psychiatric Medical History: Reports: Hx Anxiety, Hx Depression Past Surgical History: Reports: Hx Cholecystectomy, Hx Tonsillectomy - Immunizations Immunizations up to date: Yes Hx Diphtheria, Pertussis, Tetanus Vaccination: Yes Vertical Provider Document - CONSTITUTIONAL Agree With Documented VS: Yes Exam Limitations: No Limitations General Appearance: WD/WN, No Apparent Distress - INFECTION CONTROL TRAVEL OUTSIDE OF THE [place] IN LAST 30 DAYS: No - HEENT HEENT: Atraumatic, Normocephalic - NECK Neck: Normal Inspection - RESPIRATORY Respiratory: No Respiratory Distress - CARDIOVASCULAR Pulses: Normal: Dorsalis pedis - MUSCULOSKELETAL/EXTREMETIES Musculoskeletal/Extremeties: MAEW, Tender - Left ankle tenderness over lateral malleolar area no obvious edema or deformity, No Edema. negative: Eccymosis - NEURO Level of Consciousness: Awake, Alert, Appropriate Motor/Sensory: No Motor Deficit - DERM Integumentary: Warm, Dry Course - Re-evaluation Re-evalutation: 09/02/18 16:19 Patient reports that she does have crutches at home. Patient encouraged to be initially nonweightbearing and then weightbearing as tolerated. We will switch patient to an ankle stirrup splint to prevent her ankle from giving out on her. Patient encouraged to follow-up with orthopedics for further evaluation at this time. - Vital Signs Vital signs: Temp Pulse Resp BP Pulse Ox 98.1 F 65 20 134/95 H 99 09/02/18 14:19 09/02/18 14:19 09/02/18 14:19 09/02/18 14:19 09/02/18 14:19 - Diagnostic Test Radiology reviewed: Image reviewed, Reports reviewed Procedures - Immobilization Left Ankle Pre-Proc Neuro Vasc Exam: Normal Immobilizer type: Ankle stirrup Performed by: PCT Post-Proc Neuro Vasc Exam: Normal Alignment checked and good: Yes Discharge - Discharge Clinical Impression: Left ankle sprain Qualifiers: Encounter type: initial encounter Involved ligament of ankle: unspecified ligament Qualified Code(s): S93.402A - Sprain of unspecified ligament of left ankle, initial encounter Condition: Stable Disposition: HOME, SELF-CARE Instructions: Ankle Stirrup Splint ([facility]), Use of Crutches ([facility]), Ice & Elevation ([facility]), Sprained Ankle ([facility]) Additional Instructions: Return immediately for any new or worsening symptoms Followup with your primary care provider, call tomorrow to make a followup appointment Weightbearing as tolerated Follow-up with orthopedics for further evaluation, call today for an appointment Prescriptions: Naproxen [Naprosyn 250 Nmg Tablet] 1 tab PO BID #14 tablet Forms: Smoking Cessation Education, Return to Work Referrals: [facility] [Provider Group] - Follow up as needed
== END 2018-09-02 16:55 | disposition home or self-care (01) ==
LOC: ER 14:09
DX: S93.402A Sprain of unspecified ligament of left ankle, initial encounter (principal); W01.0XXA Fall on same level from slipping, tripping and stumbling without subsequent striking against object, initial encounter; Y99.0 Civilian activity done for income or pay; F17.200 Nicotine dependence, unspecified, uncomplicated; I10 Essential (primary) hypertension; E11.9 Type 2 diabetes mellitus without complications
CPT/HCPCS: 99283; 73610; L1902

== ENCOUNTER 2018-09-13 13:35 | Emergency (ER) | payer SELFPAY ==
[2018-09-13 14:01] VITALS: BP 150/85
[2018-09-13] MEDS ORDERED: ASPIRIN 81 MG TABLET, CHEWABLE PO ONE (14:35)
--- NOTE | 2018-09-13 14:37 | ER Document Report ---
ED Medical Screen (RME) - General Chief Complaint: Chest Pain Stated Complaint: CHEST PAIN Time Seen by Provider: 09/13/18 14:35 Mode of Arrival: Ambulatory Information source: Patient Notes: Patient presents complaining of a history of left-sided chest pain off and on for the past 3 days. Patient states the pain will radiate to the left arm. Patient denies any nausea vomiting or cough. Patient does report occasional shortness of breath. Patient does have a history of PCOS as well as anxiety and cholecystectomy. I have greeted and performed a rapid initial assessment of this patient. A comprehensive ED assessment and evaluation of the patient, analysis of test results and completion of the medical decision making process will be conducted by additional ED providers. TRAVEL OUTSIDE OF THE [place] IN LAST 30 DAYS: No - Related Data Allergies/Adverse Reactions: No Known Drug Allergies Allergy (Verified 09/02/18 14:12) chocolate flavor Adverse Reaction (Verified 09/02/18 14:12) peanut Adverse Reaction (Verified 09/02/18 14:12) Past Medical History - Past Medical History Cardiac Medical History: Reports: Hx Hypertension Pulmonary Medical History: Reports: Hx Bronchitis, Hx Pneumonia Neurological Medical History: Reports: Hx Migraine Endocrine Medical History: Reports: Hx Diabetes Mellitus Type 2 Renal/ Medical History: Reports: Hx Ovarian Cysts - pcos. Denies: Hx Peritoneal Dialysis Musculoskeltal Medical History: Reports Hx Musculoskeletal Deformity, Reports Hx Musculoskeletal Trauma Psychiatric Medical History: Reports: Hx Anxiety, Hx Depression Past Surgical History: Reports: Hx Cholecystectomy, Hx Tonsillectomy - Immunizations Immunizations up to date: Yes Hx Diphtheria, Pertussis, Tetanus Vaccination: Yes Physical Exam - Vital signs Vitals: Temp Pulse Resp BP Pulse Ox 98.3 F 77 18 150/85 H 100 09/13/18 13:59 09/13/18 13:59 09/13/18 13:59 09/13/18 13:59 09/13/18 13:59 - Respiratory Respiratory status: No respiratory distress Chest status: Tender Breath sounds: Normal Course - Vital Signs Vital signs: Temp Pulse Resp BP Pulse Ox 98.3 F 77 18 150/85 H 100 09/13/18 13:59 09/13/18 13:59 09/13/18 13:59 09/13/18 13:59 09/13/18 13:59
--- NOTE | 2018-09-13 15:17 | RADIOLOGY REPORT (SQ) ---
EXAM DESCRIPTION: CHEST 2 VIEWS COMPLETED DATE/TIME: 09/13/2018 3:06 pm REASON FOR STUDY: cp COMPARISON: 2017 NUMBER OF VIEWS: Two view. TECHNIQUE: Frontal and lateral radiographic views of the chest acquired. LIMITATIONS: None. FINDINGS: LUNGS AND PLEURA: Low lung volumes. No opacities, masses or pneumothorax. No pleural eff usion. MEDIASTINUM AND HILAR STRUCTURES: No masses. No contour abnormalities. HEART AND VASCULAR STRUCTURES: Heart normal in size and contour. No evidence for failure. BONES: No acute findings. HARDWARE: None in the chest. OTHER: No other significant finding. IMPRESSION: LOW LUNG VOLUMES. NO SIGNIFICANT RADIOGRAPHIC FINDING IN THE CHEST. TECHNICAL DOCUMENTATION: JOB ID: [id number] [employer]- All Rights Reserved Reading location - IP/workstation name: [email or web address]
[2018-09-13] MEDS ORDERED: ASPIRIN 81 MG TABLET, CHEWABLE ONE (16:37)
--- NOTE | 2018-09-13 17:32 | EKG REPORT ---
SEVERITY:- ABNORMAL ECG - SINUS RHYTHM PROBABLE LEFT VENTRICULAR HYPERTROPHY BORDERLINE PROLONGED QT INTERVAL : Confirmed by: Nanette Brooks MD 13-Sep-2018 17:31:39
== END 2018-09-13 17:17 | disposition left against medical advice (07) ==
LOC: ER 13:35
DX: R07.9 Chest pain, unspecified (principal); R06.02 Shortness of breath; I10 Essential (primary) hypertension; E11.9 Type 2 diabetes mellitus without complications; Z87.01 Personal history of pneumonia (recurrent); Z53.20 Procedure and treatment not carried out because of patient's decision for unspecified reasons
CPT/HCPCS: 71046; 93005; 93010; 99281

== ENCOUNTER 2018-09-14 19:29 | Emergency (ER) | payer SELFPAY ==
[2018-09-14 19:48] VITALS: BP 161/87
--- NOTE | 2018-09-14 20:24 | ER Document Report ---
ED Medical Screen (RME) - General Chief Complaint: Chest Pain Stated Complaint: CHEST PAINS Time Seen by Provider: 09/14/18 20:23 Mode of Arrival: Ambulatory Information source: Patient TRAVEL OUTSIDE OF THE [place] IN LAST 30 DAYS: No - Related Data Allergies/Adverse Reactions: No Known Drug Allergies Allergy (Verified 09/02/18 14:12) chocolate flavor Adverse Reaction (Verified 09/02/18 14:12) peanut Adverse Reaction (Verified 09/02/18 14:12) Past Medical History - Past Medical History Cardiac Medical History: Reports: Hx Hypertension Pulmonary Medical History: Reports: Hx Bronchitis, Hx Pneumonia Neurological Medical History: Reports: Hx Migraine Endocrine Medical History: Reports: Hx Diabetes Mellitus Type 2 Renal/ Medical History: Reports: Hx Ovarian Cysts - pcos. Denies: Hx Peritoneal Dialysis Musculoskeltal Medical History: Reports Hx Musculoskeletal Deformity, Reports Hx Musculoskeletal Trauma Psychiatric Medical History: Reports: Hx Anxiety, Hx Depression Past Surgical History: Reports: Hx Cholecystectomy, Hx Tonsillectomy - Immunizations Immunizations up to date: Yes Hx Diphtheria, Pertussis, Tetanus Vaccination: Yes Physical Exam - Vital signs Vitals: Temp Pulse Resp BP Pulse Ox 98.3 F 79 24 H 161/87 H 98 09/14/18 19:46 09/14/18 19:46 09/14/18 19:46 09/14/18 19:46 09/14/18 19:46 Course - Vital Signs Vital signs: Temp Pulse Resp BP Pulse Ox 98.3 F 79 24 H 161/87 H 98 09/14/18 19:46 09/14/18 19:46 09/14/18 19:46 09/14/18 19:46 09/14/18 19:46
--- NOTE | 2018-09-14 20:31 | ER Document Report ---
HPI - HPI Patient complains to provider of: Chest pain Time Seen by Provider: 09/14/18 20:23 Onset: Yesterday Onset/Duration: Persistent, Waxing and waning Quality of pain: Achy Pain Level: 2 Context: Patient presents emergency department with complaints of chest pain left arm pain. Denies nausea vomiting fever diarrhea. Denies history of cardiac disease but reports family history of cardiac disease. She does smoke. 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 Patient complains of pain when she makes a motion of making a pizza. Chest wall tender to palpation. 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 Denies: Hx Peritoneal Dialysis Musculoskeletal Medical History: Reports Hx Musculoskeletal Deformity, Reports Hx Musculoskeletal Trauma Psychiatric Medical History: Reports: Hx Anxiety, Hx Depression Past Surgical History: Reports: Hx Cholecystectomy, Hx Tonsillectomy - Immunizations Immunizations up to date: Yes Hx Diphtheria, Pertussis, Tetanus Vaccination: Yes Vertical Provider Document - CONSTITUTIONAL Agree With Documented VS: Yes Exam Limitations: No Limitations General Appearance: WD/WN, No Apparent Distress - INFECTION CONTROL TRAVEL OUTSIDE OF THE [place] IN LAST 30 DAYS: No - HEENT HEENT: Atraumatic, Normocephalic - NECK Neck: Normal Inspection, Supple. negative: Lymphadenopathy-Left, Lymphadenopathy-Right - RESPIRATORY Respiratory: Breath Sounds Normal, No Respiratory Distress, Other - Chest wall tender to palpation midsternal. Reports pain when she stretches to the chest wall. - CARDIOVASCULAR Cardiovascular: Regular Rate, Regular Rhythm - GI/ABDOMEN Gastrointestinal: Abdomen Soft, Abdomen Non-Tender - MUSCULOSKELETAL/EXTREMETIES Musculoskeletal/Extremeties: MAURICE COLEMAN - NEURO Level of Consciousness: Awake, Alert Motor/Sensory: No Motor Deficit - DERM Integumentary: Warm, Dry Course - Re-evaluation Re-evalutation: 09/14/18 20:35 Patient is very tender midsternal suggesting costochondritis. Discussed symptoms with patient. Discussed ibuprofen and importance of follow-up with primary care provider patient encouraged to quit smoking. She verbalized understanding to all instructions. The patient has atypical chest pain. The patient's chest pain is not suggestive of pulmonary embolus, cardiac ischemia, aortic dissection or other serious etiology. Given the extremely low risk for these diagnosis, further testing and evaluation for these possibilities does not appear to be indicated at this time. The patient has been instructed to return if the symptoms worsen or change in any way. Dictation of this chart was performed using voice recognition software; therefore, there may be some unintended grammatical errors. 09/14/18 20:36 - Vital Signs Vital signs: Temp Pulse Resp BP Pulse Ox 98.3 F 79 24 H 161/87 H 98 09/14/18 19:46 09/14/18 19:46 09/14/18 19:46 09/14/18 19:46 09/14/18 19:46 - Diagnostic Test Radiology reviewed: Image reviewed, Reports reviewed - Chest x-ray from 09/13/18 negative - EKG Interpretation by Me EKG shows normal: Sinus rhythm Rate: Normal Rhythm: NSR When compared to previous EKG there are: No significant change Discharge - Discharge Clinical Impression: Chest wall pain, Costochondritis Condition: Stable Disposition: HOME, SELF-CARE Instructions: Costochondritis ([facility]), Use of Pyem-Dif-Zolxugi Ibuprofen ([facility]) Additional Instructions: *You have been evaluated for chest wall pain costochondritis *Take Motrin as indicated *Follow up with a primary care provider within 1 week *Return to ED for worsening condition, changes, needs, difficulty breathing concerns Monitor your blood pressure. Your blood pressure was elevated today. This may be because you were anxious, in pain or because you need medication. It is important to follow up with your primary care provider for full evaluation. Forms: Elevated Blood Pressure, Smoking Cessation Education, Return to Work
--- NOTE | 2018-09-15 07:49 | EKG REPORT ---
SEVERITY:- NORMAL ECG - SINUS RHYTHM : Confirmed by: Leo Soriano MD 15-Sep-2018 07:47:59
== END 2018-09-14 20:40 | disposition home or self-care (01) ==
LOC: ER 19:29
DX: M94.0 Chondrocostal junction syndrome [Tietze] (principal); R07.89 Other chest pain; M79.602 Pain in left arm; R05 Cough; I10 Essential (primary) hypertension; E11.9 Type 2 diabetes mellitus without complications; Z90.49 Acquired absence of other specified parts of digestive tract; F41.9 Anxiety disorder, unspecified; F32.9 Major depressive disorder, single episode, unspecified; F17.200 Nicotine dependence, unspecified, uncomplicated
CPT/HCPCS: 93005; 93010; 99284

== ENCOUNTER 2018-09-21 10:07 | Emergency (ER) | payer SELFPAY ==
--- NOTE | 2018-09-21 10:30 | ER Document Report ---
HPI - HPI Time Seen by Provider: 09/21/18 10:28 Pain Level: 2 Notes: Patient is a 27-year-old female no significant past medical history aside from elevated blood pressure (not medicated) and issues with her left ankle/knee who presents complaining of left-sided head injury 2 days ago. Patient states that her ankle gave out on her 2 days ago and she hit the left side of her head off of the side of her car door when she was standing next to it. Patient states that she has continue to work and perform typical daily living activities without difficulty, but has had occasional dizziness. Patient states that she missed work today and needs a work note. She is otherwise scheduled for follow- up for her knee, ankle, and blood pressure. She is eating and drinking without difficulty. She is urinating normally. She has no other concerns or complaints. Currently feeling well. Denies any headache, fever, neck pain, changes in vision/speech/mentation/hearing, URI, sore throat, chest pain, palpitations, syncope, cough, shortness of breath, wheeze, dyspnea, abdominal pain, nausea/vomiting/diarrhea, urinary retention, dysuria, hematuria, loss of control of bowel or bladder, numbness/tingling, saddle anesthesia, muscle paralysis/weakness, or rash. - ROS Systems Reviewed and Negative: Yes All other systems reviewed and negative - REPRODUCTIVE Reproductive: DENIES: : Past Medical History - Social History Smoking Status: Unknown if Ever Smoked Family History: Reviewed & Not Pertinent, Arthritis, CAD, DM, Hyperlipidemia, Hypertension, Malignancy, Thyroid Disfunction - Past Medical History Cardiac Medical History: Reports: Hx Hypertension Pulmonary Medical History: Reports: Hx Bronchitis, Hx Pneumonia Neurological Medical History: Reports: Hx Migraine Endocrine Medical History: Reports: Hx Diabetes Mellitus Type 2 Renal/ Medical History: Reports: Hx Ovarian Cysts - pcos. Denies: Hx Peritoneal Dialysis Musculoskeletal Medical History: Reports Hx Musculoskeletal Deformity, Reports Hx Musculoskeletal Trauma Psychiatric Medical History: Reports: Hx Anxiety, Hx Depression Past Surgical History: Reports: Hx Cholecystectomy, Hx Tonsillectomy - Immunizations Immunizations up to date: Yes Hx Diphtheria, Pertussis, Tetanus Vaccination: Yes Vertical Provider Document - CONSTITUTIONAL Agree With Documented VS: Yes Notes: PHYSICAL EXAMINATION: GENERAL: Well-appearing, well-nourished and in no acute distress. A&Ox4. Answers questions appropriately. HEAD: Atraumatic, normocephalic. Non-tender. No mistry sign. No hematoma or bogginess. EYES: Pupils equal round and reactive to light, extraocular movements intact, sclera anicteric, conjunctiva are normal. No raccoon eyes/entrapment ENT: EAC clear b/l. TM's intact b/l without erythema, fluid, or perforation. Nares patent and without discharge. oropharynx clear without exudates. No tonsilar hypertrophy or erythema. Moist mucous membranes. No sinus tenderness. No hemotympanum/CSF discharge. NECK: Normal range of motion, supple without lymphadenopathy. No rigidity. No midline tenderness. LUNGS: Breath sounds clear to auscultation bilaterally and equal. No wheezes rales or rhonchi. HEART: Regular rate and rhythm without murmurs, rubs, gallops. ABDOMEN: Soft, nontender, nondistended abdomen. No guarding, no rebound. N ormal bowel sounds present. Musculoskeletal: Ext's b/l: FROM to passive/active. Strength 5+/5. No deficits noted. No bony tenderness of extremities. Back: FROM to passive/active. Strength 5+/5. No vertebral point tenderness, stepoffs, or deformities. No other bony tenderness or ecchymosis. Extremities: No cyanosis, clubbing, or edema b/l. Peripheral pulses 2+. Capillary refill less than 2 seconds. NEUROLOGICAL: NIH 0. GCS 15. Cranial nerves grossly intact. Normal speech, normal gait. Normal sensory, motor exams. Reflexes 2+ b/l. DAVID's negative. Pronator drift negative. Heel/hugo, finger/nose wnl. Romberg neg. PSYCH: Normal mood, normal affect. SKIN: Warm, Dry, normal turgor, no rashes or lesions noted. - INFECTION CONTROL TRAVEL OUTSIDE OF THE [place] IN LAST 30 DAYS: No Course - Re-evaluation Re-evalutation: 09/21/18 10:32 Patient is an afebrile, well-hydrated, 27-year-old female who presents for evaluation for head injury, suspect closed head injury possible concussive symptoms. Vitals are acceptable without significant tachycardia, tachypnea, or hypoxia. PE is otherwise unremarkable for any focal neurological deficits. NIH 0, GCS 15, cranial nerves grossly intact, [place] CT head criteria negative, Nexus criteria negative. No labs or imaging warranted at this time. Patient is nontoxic-appearing and is tolerating p.o. without difficulty. Patient is currently asymptomatic and is here for a work note. Low suspicion for any acute glaucoma, temporal arteritis, meningitis, intracranial hemorrhage, ischemic stroke, sepsis, or fracture at this time. Patient is aware that this condition can change from initial presentation and that she needs to monitor symptoms closely for any acute changes. Recheck with your PCM in 3 to 5 days. Consider consult neurology. Return to the ED with any other worsening/concerning symptoms. Patient is in agreement. Discharge - Discharge Clinical Impression: Closed head injury Qualifiers: Encounter type: initial encounter Qualified Code(s): S09.90XA - Unspecified injury of head, initial encounter Condition: Stable Disposition: HOME, SELF-CARE Instructions: Post-Concussion Syndrome ([facility]) Additional Instructions: You have been evaluated in the Emergency Department for a head injury and have been diagnosed with a concussion. Concussions can be associated with any of the following symptoms: confusion, sleepiness, memory deficits, nausea, general fatigue, or headaches. The only way to treat these symptoms is complete brain rest. Please follow-up with both your primary physician and a Neurologist in 3-5 days to be rechecked. Return to the ER immediately if you experience episodes of passing out, having an unstable or wobbly gait, have uncontrollable headaches or nausea, have blindness/vision changes, or have any other concerning symptoms. Return to the ED with any worsening symptoms and/or development of fever, headache, changes in behavior/mentation/vision/speech, chest pain, palpitations, syncope, shortness of breath, trouble breathing, abdominal pain, n/v/d, blood in stool/urine, loss of control of bowel/bladder, urinary retention, muscle weakness/paralysis, saddle anesthesia, numbness/tingling, or other worsening symptoms that are concerning to you. Forms: Elevated Blood Pressure, Return to Work Referrals: TINY MONTERO MD [NO LOCAL MD] - Follow up as needed
[2018-09-21 10:31] VITALS: BP 149/89
== END 2018-09-21 10:33 | disposition home or self-care (01) ==
LOC: ER 10:07
DX: S09.90XA Unspecified injury of head, initial encounter (principal); M25.572 Pain in left ankle and joints of left foot; M25.562 Pain in left knee; R51 Headache; W22.8XXA Striking against or struck by other objects, initial encounter; I10 Essential (primary) hypertension; E11.9 Type 2 diabetes mellitus without complications
CPT/HCPCS: 99283

== ENCOUNTER 2018-09-26 23:53 | Emergency (ER) | payer OTHER ==
[2018-09-27] MEDS ORDERED: MORPHINE SULFATE 10 MG/ML INJ IM ONE (01:22)
[2018-09-27] MEDS ORDERED: KETOROLAC TROMETHAMINE 60 MG/2 ML SDV IM ONE (01:22)
--- NOTE | 2018-09-27 01:24 | ER Document Report ---
HPI - HPI Time Seen by Provider: 09/27/18 01:11 Pain Level: 4 Notes: Patient is an otherwise healthy 27-year-old female presented to the emergency department with chief complaint of low back pain. Patient reports she was lifting heavy boxes at work when the pain began. Patient reports she tried taking some Tylenol without relief. She denies any bowel incontinence, urinary retention or saddle anesthesia. Patient has overall felt well lately and has not had any fevers. She denies any history of previous back injuries. - REPRODUCTIVE LMP: may end of Reproductive: DENIES: : Past Medical History - General Information source: Patient - Social History Smoking Status: Never Smoker Frequency of alcohol use: None Drug Abuse: None Family History: Reviewed & Not Pertinent, Arthritis, CAD, DM, Hyperlipidemia, Hypertension, Malignancy, Thyroid Disfunction - Past Medical History Cardiac Medical History: Reports: Hx Hypertension Pulmonary Medical History: Reports: Hx Bronchitis, Hx Pneumonia Neurological Medical History: Reports: Hx Migraine Endocrine Medical History: Reports: Hx Diabetes Mellitus Type 2 Renal/ Medical History: Reports: Hx Ovarian Cysts - pcos. Denies: Hx Peritoneal Dialysis Musculoskeletal Medical History: Reports Hx Musculoskeletal Deformity, Reports Hx Musculoskeletal Trauma Psychiatric Medical History: Reports: Hx Anxiety, Hx Depression Past Surgical History: Reports: Hx Cholecystectomy, Hx Tonsillectomy - Immunizations Immunizations up to date: Yes Hx Diphtheria, Pertussis, Tetanus Vaccination: Yes Vertical Provider Document - CONSTITUTIONAL Notes: PHYSICAL EXAMINATION: GENERAL: Well-appearing, well-nourished and in no acute distress. HEAD: Atraumatic, normocephalic. EYES: Pupils equal round extraocular movements intact, conjunctiva are normal. ENT: Nares patent NECK: Normal range of motion LUNGS: No respiratory distress Musculoskeletal: Normal range of motion tenderness to palpation to bilateral lumbar paraspinous area, no vertebral tenderness, step-off or deformity., NEUROLOGICAL: Normal speech, normal gait. PSYCH: Normal mood, normal affect. SKIN: Warm, Dry, normal turgor, no rashes or lesions noted. - INFECTION CONTROL TRAVEL OUTSIDE OF THE [place] IN LAST 30 DAYS: No Course - Re-evaluation Re-evalutation: Patient reports significant improvement of her pain after administration of medications here in the emergency department. Patient will be discharged home at this time as there is no indication for imaging. Patient given ED return precautions and verbalizes understanding and agreement with same. - Vital Signs Vital signs: Temp Pulse Resp BP Pulse Ox 98.2 F 97 16 175/93 H 97 09/27/18 00:23 09/27/18 00:23 09/27/18 00:23 09/27/18 00:23 09/27/18 00:23 Discharge - Discharge Clinical Impression: Back pain Qualifiers: Back pain location: back pain in unspecified location Chronicity: acute Back pain laterality: bilateral Qualified Code(s): M54.9 - Dorsalgia, unspecified Condition: Stable Disposition: HOME, SELF-CARE Additional Instructions: You have been seen in the Emergency Department (ED) today for back pain. Your workup and exam have not shown any acute abnormalities and you are likely suffering from muscle strain or possible problems with your discs, but there is no treatment that will fix your symptoms at this time. Please take ibuprofen 600 mg every 6 hours for the next several days. You should also purchase a local lidocaine cream such as "aspercreme with lidocaine" and use per bottle instructions to the affected area. Apply heat to the area as often as you are able. Continue to keep active and avoid prolonged periods of bed rest. Please follow up with your doctor as soon as possible regarding today's ED visit and your back pain. Return to the ED for worsening back pain, fever, weakness or numbness of either leg, or if you develop either (1) an inability to urinate or have bowel movements, or (2) loss of your ability to control your bathroom functions (if you start having "accidents"), or if you develop other new symptoms that concern you.concern you. Forms: Special Work Note, Return to Work
[2018-09-27 02:18] VITALS: BP 156/85
== END 2018-09-27 02:15 | disposition home or self-care (01) ==
LOC: ER 23:53
DX: M54.5 Low back pain (principal); M54.9 Dorsalgia, unspecified; X50.0XXA Overexertion from strenuous movement or load, initial encounter; Y99.0 Civilian activity done for income or pay; I10 Essential (primary) hypertension; E11.9 Type 2 diabetes mellitus without complications
CPT/HCPCS: 99283; 96372; J1885; J2270

== ENCOUNTER 2018-10-05 18:24 | Emergency (ER) | payer SELFPAY ==
[2018-10-05] MEDS ORDERED: DIPHENHYDRAMINE HCL 50 MG/ML VIAL IV ONE (19:38)
[2018-10-05] MEDS ORDERED: NORMAL SALINE 1000 ML 1,000 ML IV ONE (19:38)
[2018-10-05] MEDS ORDERED: METOCLOPRAMIDE HCL INJ/PF 10 MG/2 ML SDV IV ONE (19:38)
[2018-10-05] MEDS ORDERED: KETOROLAC TROMETHAMINE INJ/PF 30 MG/1 ML SDV IV ONE (19:39)
--- NOTE | 2018-10-05 19:40 | ER Document Report ---
ED Medical Screen (RME) - General Chief Complaint: Vomiting Stated Complaint: VOMITING BLOOD Time Seen by Provider: 10/05/18 19:36 Notes: Patient is a morbidly obese 27-year-old female presents to the emergency department for multiple episodes of vomiting. Patient states "I have been vomiting so much that I gave myself a migraine." States she has a history of migraines and is the process of getting her primary care provider for neurology follow-up. States she is been here multiple times for migraine treatments. Patient's denying any abdominal pain, fever, dysuria, vaginal discharge, diarrhea, chest pain, shortness of breath, rashes. Patient states one episode of vomiting there was "some red stuff" she is unsure if this was blood. GENERAL: Alert, interacts well. No acute distress. ABDOMEN: Soft, non-tender. Non-distended. Bowel sounds present in all 4 quadrants. I have greeted and performed a rapid initial assessment of this patient. A comprehensive ED assessment and evaluation of the patient, analysis of test results and completion of the medical decision making process will be conducted by additional ED providers. I have specifically instructed the patient or family members with the patient to immediately return to any nursing staff should anything change in the patient's condition or with their chief complaint. This medical record was dictated with voice recognizing software. There may be grammatical, syntax errors that are unintended. TRAVEL OUTSIDE OF THE [place] IN LAST 30 DAYS: No - Related Data Allergies/Adverse Reactions: No Known Drug Allergies Allergy (Verified 10/05/18 18:59) chocolate flavor Adverse Reaction (Verified 10/05/18 18:59) peanut Adverse Reaction (Verified 10/05/18 18:59) Past Medical History - Social History Chew tobacco use (# tins/day): No Frequency of alcohol use: Social Drug Abuse: None - Past Medical History Cardiac Medical History: Reports: Hx Hypertension Pulmonary Medical History: Reports: Hx Bronchitis, Hx Pneumonia Neurological Medical History: Reports: Hx Migraine Endocrine Medical History: Reports: Hx Diabetes Mellitus Type 2 Renal/ Medical History: Reports: Hx Ovarian Cysts - pcos. Denies: Hx Peritoneal Dialysis Musculoskeltal Medical History: Reports Hx Musculoskeletal Deformity, Reports Hx Musculoskeletal Trauma Psychiatric Medical History: Reports: Hx Anxiety, Hx Depression Past Surgical History: Reports: Hx Cholecystectomy, Hx Tonsillectomy - Immunizations Immunizations up to date: Yes Hx Diphtheria, Pertussis, Tetanus Vaccination: Yes Physical Exam - Vital signs Vitals: Temp Pulse Resp BP Pulse Ox 98.2 F 76 19 144/64 H 98 10/05/18 19:02 10/05/18 19:02 10/05/18 19:02 10/05/18 19:02 10/05/18 19:02 Course - Vital Signs Vital signs: Temp Pulse Resp BP Pulse Ox 98.2 F 76 19 144/64 H 98 10/05/18 19:02 10/05/18 19:02 10/05/18 19:02 10/05/18 19:02 10/05/18 19:02
[2018-10-05 20:49] LABS: ABSOLUTE BASOPHILS # (AUTO) 0.1 10^3/uL (0.0-0.2); ABSOLUTE EOSINOPHILS # (AUTO) 0.1 10^3/uL (0.0-0.6); ABSOLUTE LYMPHOCYTES (AUTO) 3.3 10^3/uL (0.5-4.7); ABSOLUTE MONOCYTES (AUTO) 0.8 10^3/uL (0.1-1.4); ABSOLUTE NEUT (AUTO) 7.9 10^3/uL (1.7-8.2); BASOPHILS % (AUTO) 0.5 % (0-2); EOSINOPHILS % (AUTO) 0.7 % (0-6); HEMOGLOBIN 12.6 g/dL (12.0-15.5); MEAN CORPUSCULAR HEMOGLOBIN 24.7 pg (27.0-33.4); MEAN CORPUSCULAR VOLUME 75 fl (80-97); MONOCYTES % (AUTO) 6.4 % (3-13); PLATELET COUNT 328 10^3/uL (150-450); RED BLOOD COUNT 5.08 10^6/uL (3.72-5.28); RED CELL DISTRIBUTION WIDTH 15.6 % (11.5-14.0); SEGMENTED NEUTROPHILS % (AUTO) 65.4 % (42-78); TOTAL CELLS COUNTED % (AUTO) 100 %; WHITE BLOOD COUNT 12.1 10^3/uL (4.0-10.5)
[2018-10-05 21:04] LABS: ALANINE AMINOTRANSFERASE 30 U/L (9-52); ALKALINE PHOSPHATASE 102 U/L (38-126); ANION GAP 9 (5-19); ASPARTATE AMINO TRANSFERASE 16 U/L (14-36); BILIRUBIN,DIRECT 0.2 mg/dL (0.0-0.4); BILIRUBIN,TOTAL 0.6 mg/dL (0.2-1.3); BLOOD UREA NITROGEN 12 mg/dL (7-20); CALCIUM 9.2 mg/dL (8.4-10.2); CARBON DIOXIDE 23 mmol/L (22-30); CHLORIDE 108 mmol/L (98-107); GLUCOSE 79 mg/dL (75-110); LIPASE 87.3 U/L (23-300); SODIUM 140.1 mmol/L (137-145); TOTAL PROTEIN 7.5 g/dL (6.3-8.2)
[2018-10-05 21:06] LABS: APPEARANCE,URINE CLOUDY; BILIRUBIN,URINE NEGATIVE (NEGATIVE); COLOR,URINE AMBER; GLUCOSE, URINE NEGATIVE (NEGATIVE); KETONES,URINE TRACE mg/dL (NEGATIVE); LEUKOCYTE ESTERASE,URINE NEGATIVE (NEGATIVE); NITRITE,URINE NEGATIVE (NEGATIVE); PROTEIN,URINE 30 mg/dL (NEGATIVE); URINE SPECIFIC GRAVITY 1.034
[2018-10-05] MEDS ORDERED: ONDANSETRON ODT 4 MG TAB (6 TAB/ER DISP) PO PRN (23:17)
--- NOTE | 2018-10-05 23:17 | ER Document Report ---
ED General - General Chief Complaint: Vomiting Stated Complaint: VOMITING BLOOD Time Seen by Provider: 10/05/18 19:36 Primary Care Provider: HIRO CUMMINGS MD [Primary Care Provider] - Follow up in 3-5 days Notes: Patient is a pleasant 27-year-old female who presents with complaint of vomiting. No real associate abdominal pain. No diarrhea. Patient says there was a little bit of red material in the vomit however it has since cleared. Patient did receive vacations in triage and vomiting since stopped. She says that she also got a migraine headache that started after vomiting. She says she has migraines very frequently and this felt just like previous migraine. It was not maximal in onset. She denies any focal weakness or numbness. No fevers. TRAVEL OUTSIDE OF THE [place] IN LAST 30 DAYS: No - Related Data Allergies/Adverse Reactions: No Known Drug Allergies Allergy (Verified 10/05/18 18:59) chocolate flavor Adverse Reaction (Verified 10/05/18 18:59) peanut Adverse Reaction (Verified 10/05/18 18:59) Past Medical History - Social History Smoking Status: Current Some Day Smoker Chew tobacco use (# tins/day): No Frequency of alcohol use: Social Drug Abuse: None Family History: Reviewed & Not Pertinent, Arthritis, CAD, DM, Hyperlipidemia, Hypertension, Malignancy, Thyroid Disfunction Patient has suicidal ideation: No Patient has homicidal ideation: No - Past Medical History Cardiac Medical History: Reports: Hx Hypertension Pulmonary Medical History: Reports: Hx Bronchitis, Hx Pneumonia Neurological Medical History: Reports: Hx Migraine Endocrine Medical History: Reports: Hx Diabetes Mellitus Type 2 Renal/ Medical History: Reports: Hx Ovarian Cysts - pcos. Denies: Hx Peritoneal Dialysis Musculoskeletal Medical History: Reports Hx Musculoskeletal Deformity, Reports Hx Musculoskeletal Trauma Psychiatric Medical History: Reports: Hx Anxiety, Hx Depression Past Surgical History: Reports: Hx Cholecystectomy, Hx Tonsillectomy - Immunizations Immunizations up to date: Yes Hx Diphtheria, Pertussis, Tetanus Vaccination: Yes Review of Systems - Review of Systems Notes: My Normal Review Basic REVIEW OF SYSTEMS: CONSTITUTIONAL : Denies fever, chills, or sweats. Denies recent illness. RESPIRATORY: Denies cough, cold, or chest congestion. Denies shortness of breath, difficulty breathing, or wheezing. GASTROINTESTINAL: Denies abdominal pain. Vomiting GENITOURINARY: Denies difficulty urinating, painful urination, burning, frequency, or blood in urine. FEMALE GENITOURINARY: Denies vaginal bleeding, abnormal or irregular periods. MUSCULOSKELETAL: Denies neck or back pain or joint pain or swelling. SKIN: Denies rash or skin lesions. NEUROLOGICAL: Denies altered mental status or loss of consciousness. Denies headache. Denies weakness or paralysis or loss of use of either side. Denies problems with gait or speech. Denies sensory or motor loss. ALL OTHER SYSTEMS REVIEWED AND NEGATIVE. Physical Exam - Vital signs Vitals: Temp Pulse Resp BP Pulse Ox 98.2 F 76 19 144/64 H 98 10/05/18 19:02 10/05/18 19:02 10/05/18 19:02 10/05/18 19:02 10/05/18 19:02 - Notes Notes: General Appearance: Well nourished, alert, cooperative, no acute distress, no obvious discomfort. Well-appearing. Vitals: reviewed, See vital signs table. Head: no swelling or tenderness to the head Eyes: PERRL, EOMI, Conjuctiva clear Mouth: No decreasd moisture Lungs: No wheezing, No rales, No rhonci, No accessory muscle use, good air exchange bilaterally. Heart: Normal rate, Regular rythm, No murmur, no rub Abdomen: Normal BS, soft, No rigidity, No abdominal tenderness, No guarding, no rebound, no abdominal masses, no organomegaly Extremities: strength 5/5 in all extremities, good pulses in all extremities, no swelling or tenderness in the extremities, no edema. Skin: warm, dry, appropriate color, no rash Neuro: speech clear, oriented x 3, normal affect, responds appropriately to questions. Cranial nerves II through XII are intact. Distal sensation intact. Patient moves all extremities without difficulty. Normal gait. Normal Romberg. Course - Re-evaluation Re-evalutation: 10/06/18 07:38 Patient looks well on exam. Nausea and vomiting are under control. Headache is gone. I will prescribe her Reglan as this helped with both her nausea and her headache. She says her headache felt like her typical migraines it is no different. She had no associated neurologic sequelae no associated focal deficits. She had no abdominal pain. She looks well. I feel she safe to be discharged home. I encouraged her return to ER immediately if she has fevers, intractable vomiting, worsening recurrent headaches not responding to Reglan, or if she feels unwell. Headache was not maximal onset. Headache was just like previous migraines. I therefore do not feel that she needs work-up for subarachnoid hemorrhage as this makes it highly unlikely. Vitals signs are stable. Dictation of this chart was performed using voice recognition software; therefore, there may be some unintended grammatical errors. - Vital Signs Vital signs: Temp Pulse Resp BP Pulse Ox 97.8 F 80 17 137/73 H 100 10/05/18 23:29 10/05/18 23:29 10/05/18 23:29 10/05/18 23:29 10/05/18 23:29 - Laboratory Result Diagrams: 10/05/18 20:25 10/05/18 20:25 Laboratory results interpreted by me: 10/05/18 10/05/18 10/05/18 20:25 20:25 20:44 WBC 12.1 H MCV 75 L MCH 24.7 L RDW 15.6 H Chloride 108 H Urine Protein 30 H Urine Ketones TRACE H Urine Urobilinogen 2.0 H Discharge - Discharge Clinical Impression: Vomiting, Headache Condition: Good Disposition: HOME, SELF-CARE Additional Instructions: I prescribed a medication called Reglan. This is a medication that helps with both nausea and vomiting as well as helps with headaches. Please take the medication as prescribed. On rare occasions this medication can sometimes cause your muscles to feel as if they are jumping or irritated. If this occurs then you should take 25 mg of Benadryl. If the side effect continues after the benadryl you should return to the ER. Please rest over the next 24 hours needed. Eat a bland diet. Return to the ER immediately if you have abdominal pain, fevers, intractable vomiting, sudden onset headache that is severe in onset, or if you feel like you are worsening in any way. Prescriptions: Metoclopramide HCl [Reglan 10 mg Tablet] 1 tab PO ASDIR PRN #25 tablet PRN Reason: Forms: Return to Work Referrals: HIRO CUMMINGS MD [Primary Care Provider] - Follow up in 3-5 days
[2018-10-05 23:33] VITALS: BP 137/73
== END 2018-10-05 23:34 | disposition home or self-care (01) ==
LOC: ER 18:24
DX: R11.10 Vomiting, unspecified (principal); R51 Headache; F17.210 Nicotine dependence, cigarettes, uncomplicated; I10 Essential (primary) hypertension; E11.9 Type 2 diabetes mellitus without complications; Z90.49 Acquired absence of other specified parts of digestive tract
CPT/HCPCS: 99284; 96361; 96374; 96375; 36415; 83690; 85025; 81025; 80053; 81001; J1200; J1885; J2765; J7030

== ENCOUNTER 2019-04-24 08:30 | Emergency (ER) | payer SELFPAY ==
[2019-04-24 08:38] VITALS: BP 138/83
--- NOTE | 2019-04-24 10:16 | ER Document Report ---
Doctor's Note Notes: 04/24/19 10:15 Patient presented to the emergency department for evaluation of dizziness. I did review her chart. I signed them to see the patient. I was notified by nursing that there was an issue with her brother at daycare. She was hoping to leave to take care of the patient. I told her I would be there to evaluate her within the next 5 minutes. While discussing discharge with another patient, the patient had to leave. She was notified that her brother was vomiting and she left AGAINST MEDICAL ADVICE. She did not have any of her laboratory investigations drawn, and I did not interview nor evaluate the patient in any way.
== END 2019-04-24 10:04 | disposition home or self-care (01) ==
LOC: ER 08:30
DX: Z53.21 Procedure and treatment not carried out due to patient leaving prior to being seen by health care provider (principal); R51 Headache; R42 Dizziness and giddiness

== ENCOUNTER 2019-06-11 17:26 | Emergency (ER) | payer SELFPAY ==
[2019-06-11 17:32] VITALS: BP 149/91
[2019-06-11] MEDS ORDERED: LORAZEPAM 1 MG TABLET PO ONE (18:01)
--- NOTE | 2019-06-11 18:03 | ER Document Report ---
HPI - HPI Time Seen by Provider: 06/11/19 18:01 Context: CHIEF COMPLAINT: Anxiety today HPI: 28-year-old female with history of anxiety and panic attacks presenting to the emergency department with symptoms she believes are a panic attack. States that she became very anxious at work today, began having some racing of her heart, shortness of breath, hyperventilation, then began crying. Patient states she has been on medicine before for anxiety and panic attacks but is not currently on medication, she called her PCP who could not see her until Friday. Patient denies abdominal pain nausea vomiting. She denies . She denies problems with her thyroid. Patient does have a history of diabetes, states she takes an insulin shot once a week ROS: See HPI - all other systems were reviewed and are otherwise negative Constitutional: no fever Eyes: no drainage, no blurred vision ENT: no runny nose, no sore throat Cardiovascular: + chest pain Resp: + SOB, no cough GI: no vomiting, no diarrhea, no abdominal pain : no dysuria Integumentary: no rash Allergy: no hives Musculoskeletal: no extremity pain or swelling Neurological: no numbness/tingling, no weakness MEDICATIONS: I agree with the patient medications as charted by the RN. ALLERGIES: I agree with the allergies as charted by the RN. PAST MEDICAL HISTORY/PAST SURGICAL HISTORY: Reviewed and agree as charted by RN. SOCIAL HISTORY: Reviewed and agree as charted by RN. FAMILY HISTORY: No significant familial comorbid conditions directly related to patient complaint EXAM: Reviewed vital signs as charted by RN. CONSTITUTIONAL: Alert and oriented and responds appropriately to questions. Well-appearing; well-nourished mild distress secondary to anxiety HEAD: Normocephalic; atraumatic EYES: PERRL; Conjunctivae clear, sclerae non-icteric ENT: normal nose; no rhinorrhea; moist mucous membranes; pharynx without lesions noted, no uvula edema or deviation, no tonsillar hypertrophy, phonation normal NECK: Supple without meningismus; non-tender; no cervical lymphadenopathy, no masses CARD: RRR; no murmurs, no clicks, no rubs, no gallops; symmetric distal pulses RESP: Normal chest excursion without splinting or tachypnea; breath sounds clear and equal bilaterally; no wheezes, no rhonchi, no rales ABD/GI: Normal bowel sounds; non-distended; soft, non-tender, no rebound, no guarding; no palpable organomegaly or masses. BACK: The back appears normal and is non-tender to palpation, there is no CVA tenderness EXT: Normal ROM in all joints; non-tender to palpation; no cyanosis, no effusions, no edema SKIN: Normal color for age and race; warm; dry; good turgor; no acute lesions noted NEURO: Moves all extremities equally; Motor and sensory function intact PSYCH: The patient's mood and manner are anxious. Grooming and personal hygiene are appropriate. MDM: 28-year-old female with history of anxiety presenting for anxiety and panic attack. States the symptoms are typical of what happens when she has a panic attack. She does not check her blood sugars consistently will obtain an Accu- Chek. I did offer further testing for thyroid or other medical conditions today patient declined stating she would rather just be treated for anxiety and placed on a medication until she can see her primary care provider on Friday. - REPRODUCTIVE Reproductive: DENIES: : Past Medical History - Social History Smoking Status: Unknown if Ever Smoked Family History: Reviewed & Not Pertinent, Arthritis, CAD, DM, Hyperlipidemia, Hypertension, Malignancy, Thyroid Disfunction - Past Medical History Cardiac Medical History: Reports: Hx Hypertension Pulmonary Medical History: Reports: Hx Bronchitis, Hx Pneumonia Neurological Medical History: Reports: Hx Migraine Endocrine Medical History: Reports: Hx Diabetes Mellitus Type 2 Renal/ Medical History: Reports: Hx Ovarian Cysts - pcos. Denies: Hx Peritoneal Dialysis Musculoskeletal Medical History: Reports Hx Musculoskeletal Deformity, Reports Hx Musculoskeletal Trauma Psychiatric Medical History: Reports: Hx Anxiety, Hx Depression Past Surgical History: Reports: Hx Cholecystectomy, Hx Tonsillectomy - Immunizations Immunizations up to date: Yes Hx Diphtheria, Pertussis, Tetanus Vaccination: Yes Vertical Provider Document - INFECTION CONTROL TRAVEL OUTSIDE OF THE [place] IN LAST 30 DAYS: No Course - Vital Signs Vital signs: Temp Pulse Resp BP Pulse Ox 98 F 85 18 149/91 H 100 06/11/19 17:31 06/11/19 17:31 06/11/19 17:31 06/11/19 17:31 06/11/19 17:31 Discharge - Discharge Clinical Impression: Panic attack Condition: Stable Disposition: HOME, SELF-CARE Instructions: Anxiety ([facility]) Additional Instructions: Take the Atarax to help with anxiety. Watch for sedation and do not drive on this medication. Although with your primary care provider on Friday for further management of your anxiety disorder Prescriptions: Hydroxyzine Pamoate [Vistaril 25 mg Capsule] 25 mg PO TID PRN #30 capsule PRN Reason: Referrals: EVELIN LLANES FNP-C [Primary Care Provider] - Follow up as needed
== END 2019-06-11 18:24 | disposition home or self-care (01) ==
LOC: ER 17:26
DX: F41.0 Panic disorder [episodic paroxysmal anxiety] (principal); E11.9 Type 2 diabetes mellitus without complications; I10 Essential (primary) hypertension; Z90.49 Acquired absence of other specified parts of digestive tract
CPT/HCPCS: 99283

== ENCOUNTER 2020-04-01 10:02 | Emergency (ER) | payer SELFPAY ==
--- NOTE | 2020-04-01 11:04 | ER Document Report ---
HPI - HPI Patient complains to provider of: Eye injury Time Seen by Provider: 04/01/20 11:03 Onset: Other - 2 Days ago Onset/Duration: Persistent Quality of pain: Achy Pain Level: 5 Context: Patient states she was attempting to hang a picture and it fell hitting her to the right orbital area. Patient with tenderness to right orbit with occasional blurred vision to right eye. Patient denies any use of glasses or contact lenses. Patient denies any loss of consciousness, nausea or vomiting. Patient without any neck discomfort. Associated Symptoms: Other - Right eye pain Exacerbated by: Denies Relieved by: Denies Similar symptoms previously: No Recently seen / treated by doctor: No - ROS ROS below otherwise negative: Yes Systems Reviewed and Negative: Yes All other systems reviewed and negative - EENT EENT: REPORTS: Eye problems - NEURO Neurology: DENIES: Headache - GASTROINTESTINAL Gastrointestinal: DENIES: Nausea, Patient vomiting - REPRODUCTIVE Reproductive: DENIES: : - MUSCULOSKELETAL Musculoskeletal: DENIES: Back Pain, Neck Pain - DERM Skin Color: Normal Skin Problems: None Past Medical History - General Information source: Patient - Social History Smoking Status: Current Every Day Smoker Frequency of alcohol use: Occasional Drug Abuse: None 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 Denies: Hx Peritoneal Dialysis Musculoskeletal Medical History: Reports Hx Musculoskeletal Deformity, Reports Hx Musculoskeletal Trauma Psychiatric Medical History: Reports: Hx Anxiety, Hx Depression Past Surgical History: Reports: Hx Cholecystectomy, Hx Tonsillectomy - Immunizations Immunizations up to date: Yes Hx Diphtheria, Pertussis, Tetanus Vaccination: Yes Vertical Provider Document - CONSTITUTIONAL Agree With Documented VS: Yes Exam Limitations: No Limitations General Appearance: WD/WN, No Apparent Distress - INFECTION CONTROL TRAVEL OUTSIDE OF THE [place] IN LAST 30 DAYS: No - HEENT HEENT: Normocephalic, PERRLA Notes: Subconjunctival hemorrhage to the lateral aspect of the right eye no Fluorescein uptake, no corneal abrasion, ulcer, foreign body or dendritic lesion - NECK Neck: Normal Inspection - RESPIRATORY Respiratory: No Respiratory Distress - MUSCULOSKELETAL/EXTREMETIES Musculoskeletal/Extremeties: MAEW - NEURO Level of Consciousness: Awake, Alert, Appropriate Motor/Sensory: No Motor Deficit - DERM Integumentary: Warm, Dry Course - Re-evaluation Re-evalutation: 04/01/20 12:00 Patient without any orbital fracture or hematoma. Patient with subconjunctival hemorrhage without any corneal abrasion, ulceration or foreign body. Negative Hi test. Will encourage outpatient follow-up with ophthalmology for further evaluation at this time. Good return precautions discussed with patient. - Vital Signs Vital signs: Temp Pulse Resp BP Pulse Ox 98.2 F 82 16 139/73 H 98 04/01/20 10:13 04/01/20 10:13 04/01/20 10:13 04/01/20 10:13 04/01/20 10:13 - Laboratory Results Critical Laboratory Results Reviewed: No Critical Results - Radiology Results Critical Radiology Results Reviewed: No Critical Results Discharge - Discharge Clinical Impression: Subconjunctival hemorrhage of right eye Right eye injury Qualifiers: Encounter type: initial encounter Qualified Code(s): S05.91XA - Unspecified injury of right eye and orbit, initial encounter Condition: Stable Disposition: HOME, SELF-CARE Instructions: Eye Injury ([facility]), Subconjunctival Hemorrhage ([facility]) Additional Instructions: Return immediately for any new or worsening symptoms Followup with your primary care provider, call tomorrow to make a followup appointment Follow-up with engineer conductor for further evaluation, call Friday for an appointment Prescriptions: Erythromycin Base [E-Mycin 0.5% Oph Ointment 3.5 gm] 1 applic RT_EYE QID #1 tube Forms: Return to Work Referrals: EVELIN LLANES FNP-C [Primary Care Provider] - Follow up as needed [facility] [Provider Group] - Follow up as needed [facility] [Provider Group] - 04/03/20
--- NOTE | 2020-04-01 11:33 | RADIOLOGY REPORT (SQ) ---
EXAM DESCRIPTION: CT ORBIT/SELLA WITHOUT IMAGES COMPLETED DATE/TIME: 04/01/2020 11:22 am REASON FOR STUDY: r orbit pain, picture fell on face/r eye COMPARISON: None. TECHNIQUE: Noncontrasted images through the orbits windowed for bone and soft tissue. Additional co yumiko and sagittal reconstructed images reviewed. All images stored on PACS. All CT scanners at this facility use dose modulation, iterative reconstruction, and/or weight based d osing when appropriate to reduce radiation dose to as low as reasonably achievable (ALARA). [facility]: Dose Right [facility]: CareDose [facility]: Dose Right [facility]: Teradose 4D [facility]: [employer] RADIATION DOSE: mGy. LIMITATIONS: None. FINDINGS: FACIAL BONES: No fracture or bone lesion. ORBITS: Intact. No fracture. Symmetric intact globes and retroorbital soft tissues. PARANASAL SINUSES: No significant mucosal thickening, mass or fluid. No nasal polyps. Maxillary sinus outlets are patent. SOFT TISSUES: No mass or edema. INFERIOR BRAIN: Limited view. No acute findings. OTHER: No other significant finding. IMPRESSION: NO ACUTE FINDINGS. TECHNICAL DOCUMENTATION: JOB ID: [id number] Quality ID # [id number]: Final reports with documentation of one or more dose reduction techniques (e.g., Au tomated exposure control, adjustment of the mA and/or kV according to patient size, use of iterative reconstruction technique) 2010 [employer]- All Rights Reserved Reading location - IP/workstation name: [employer]
[2020-04-01 12:15] VITALS: BP 135/81
== END 2020-04-01 12:14 | disposition home or self-care (01) ==
LOC: ER 10:02
DX: H11.31 Conjunctival hemorrhage, right eye (principal); S05.91XA Unspecified injury of right eye and orbit, initial encounter; W20.8XXA Other cause of strike by thrown, projected or falling object, initial encounter; Y93.89 Activity, other specified; H53.8 Other visual disturbances; F17.200 Nicotine dependence, unspecified, uncomplicated; I10 Essential (primary) hypertension; E11.9 Type 2 diabetes mellitus without complications
CPT/HCPCS: 70480; 99284